=== PATIENT | male | born 1965 | race Hispanic/Latino ===

== ENCOUNTER 2024-08-11 20:08 | Inpatient (IN) | payer OTHER ==
--- OUTSIDE RECORDS SUMMARY | 2024-08-11 20:17 | XMS REPORT | Continuity of Care Document ---
Author Name Unknown Address [address] [facility] [place] [address] [facility] Address [address] [facility] [place] [address] Care Team Providers Care Product Marketing Engineer Name Role Phone MD EMY APPIAH Primary Care Physician [email or web address] TARAN COFFEY Attending Clinician Unavailable CARLA COURTNEY Attending Clinician Unavailable EMY APPIAH Attending Clinician Unavailable MCKENZIE STEPHENS Attending Clinician Unavailable Td_Jae Attending Clinician Unavailable LALI_Garrett Attending Clinician Unavailable LOVE Attending Clinician Unavailable Farrukh_levi Attending Clinician UnavailMOHAN Arthur Attending Clinician Unavailable PIPER WHITNEY Attending Clinician Unavailable GUIDO GRANDA Attending Clinician UnavailTARAN Thornton Admitting Clinician Unavailable MCKENZIE STEPHENS Admitting Clinician Unavailable Tomek_T Admitting Clinician Unavailable LALI_Garrett Admitting Clinician Unavailable LOVE Admitting Clinician Unavailable Shashi Admitting Clinician Unavailabl e Payers Payer Name Policy Type Policy Number Effective Date Expirati on Date Source [employer] [employer] ([facility]) [id number] [place] [facility] (O) [id number] 2020 00:00[facility]00 [facility] [id number] Problems Condition Name Condition Details Condition Category Status Onset Date Resolution Date Last Treatment Date Treating Clinician Comments Source Anxiety disorder Anxiety Disorder Problem Active 11-30 00:00: 00 [facility] Type 2 diabetes mellitus Type 2 Diabetes Mellitus Problem Active 11-23 00:00: 00 [facility] Tobacco user Tobacco User Problem Active 11-23 00:00: 00 [facility] Plaque psoriasis Plaque Psoriasis Problem Active 11-23 00:00: 00 [facility] Acute kidney [facility] Acute pyelonephr itis due to bacteria Problem [facility] Bacteremia Problem [facility] Dehydratio n Problem [facility] Elevated troponin level Problem [facility] Influenza due to influenza virus, type A, human Problem [facility] Pyelonephr itis Problem [facility] Calculus of right kidney Problem [facility] Urinary tract [facility] Uncontroll ed diabetes mellitus [facility] Uncontroll ed hypertensi on Problem [facility] Vomiting Problem [facility] Social History Social Habit Start Date Stop Date Quantity Comments Source History of tobacco use [facility] Smoking Status Start Date Stop Date Source Former Smoker [facility] Medications Ordered Medication Name Filled Medication Name Start Date Stop Date Current Medication? Ordering Clinician Indication Dosage Frequency Signature (SIG) Comments Components Source Amlodipine Besylate (Norvasc *) 5 Mg TAB Amlodipine Besylate (Norvasc *) 5 Mg TAB 8- 18:06: 00 07-18 00:00 :00 No 5 [facility] atorvastati n 40 mg tablet 1 tablet Orally Once a day atorvastati n 40 mg tablet 1 tablet Orally Once a day 2020-10 1 00:00: 00 No atorvastat in 40 mg tablet 1 tablet Orally Once a day [facility] Rybelsus 3 mg tablet Take 1 tablet every day by oral route for 30 days. give w/ <4 oz water, 30min before 1st food/drink/ med; do not cut/crush/c hew tab Rybelsus 3 mg tablet Take 1 tablet every day by oral route for 30 days. give w/ <4 oz water, 30min before 1st food/drink/ med; do not cut/crush/c hew tab 203 00:00: 00 No 1 Q1D Rybelsus 3 mg tablet Take 1 tablet every day by oral route for 30 days. give w/ <4 oz water, 30min before 1st food/drink /med; do not cut/crush/ chew tab [facility] buspirone 7.5 mg tablet Take 1 tablet twice a day by oral route for 30 days. buspirone 7.5 mg tablet Take 1 tablet twice a day by oral route for 30 days. No 1 BID buspirone 7.5 mg tablet Take 1 tablet twice a day by oral route for 30 days. [facility] clotrimazol e-betametha sone 1 %-0.05 % topical cream APPLY TO THE AFFECTED AND SURROUNDING AREAS OF SKIN BY TOPICAL ROUTE 2 TIMES PER DAY IN THE MORNING AND EVENING FOR 2 WEEKS clotrimazol e-betametha sone 1 %-0.05 % topical cream APPLY TO THE AFFECTED AND SURROUNDING AREAS OF SKIN BY TOPICAL ROUTE 2 TIMES PER DAY IN THE MORNING AND EVENING FOR 2 WEEKS No clotrimazo le-betamet hasone 1 %-0.05 % topical cream APPLY TO THE AFFECTED AND SURROUNDIN G AREAS OF SKIN BY TOPICAL ROUTE 2 TIMES PER DAY IN THE MORNING AND EVENING FOR 2 WEEKS [facility] ketoconazol e 2 % topical cream APPLY TO THE AFFECTED AREA(S) BY TOPICAL ROUTE ONCE DAILY ketoconazol e 2 % topical cream APPLY TO THE AFFECTED AREA(S) BY TOPICAL ROUTE ONCE DAILY No ketoconazo le 2 % topical cream APPLY TO THE AFFECTED AREA(S) BY TOPICAL ROUTE ONCE DAILY [facility] lisinopril 5 mg tablet Take 1 tablet every day by oral route for 30 days. lisinopril 5 mg tablet Take 1 tablet every day by oral route for 30 days. No lisinopril 5 mg tablet Take 1 tablet every day by oral route for 30 days. [facility] metformin 1,000 mg tablet Take 1 tablet twice a day by oral route for 30 days. metformin 1,000 mg tablet Take 1 tablet twice a day by oral route for 30 days. No metformin 1,000 mg tablet Take 1 tablet twice a day by oral route for 30 days. [facility] nicotine 14 mg/24 hr daily transdermal patch Apply 1 patch every day by transdermal route for 30 days. nicotine 14 mg/24 hr daily transdermal patch Apply 1 patch every day by transdermal route for 30 days. No nicotine 14 mg/24 hr daily transderma l patch Apply 1 patch every day by transderma l route for 30 days. [facility] Trulicity 0.75 mg/0.5 mL subcutaneou s pen injector Inject 0.5 mL every week by subcutaneou s route. inject every Saturday Trulicity 0.75 mg/0.5 mL subcutaneou s pen injector Inject 0.5 mL every week by subcutaneou s route. inject every Saturday No .5mL Q1W Trulicity 0.75 mg/0.5 mL subcutaneo us pen injector Inject 0.5 mL every week by subcutaneo us route. inject every Saturday [facility] carvedilol 25 mg tablet TAKE 1 TABLET BY MOUTH TWICE DAILY WITH MEALS FOR BLOOD PRESSURE carvedilol 25 mg tablet TAKE 1 TABLET BY MOUTH TWICE DAILY WITH MEALS FOR BLOOD PRESSURE No carvedilol 25 mg tablet TAKE 1 TABLET BY MOUTH TWICE DAILY WITH MEALS FOR BLOOD PRESSURE [facility] Debrox 6.5 % ear drops INSTILL 5 DROPS INTO AFFECTED EAR(S) BY OTIC ROUTE 2 TIMES PER DAY Debrox 6.5 % ear drops INSTILL 5 DROPS INTO AFFECTED EAR(S) BY OTIC ROUTE 2 TIMES PER DAY No Debrox 6.5 % ear drops INSTILL 5 DROPS INTO AFFECTED EAR(S) BY OTIC ROUTE 2 TIMES PER DAY [facility] losartan 25 mg tablet TAKE 1 TABLET BY MOUTH ONCE DAILY FOR BLOOD PRESSURE losartan 25 mg tablet TAKE 1 TABLET BY MOUTH ONCE DAILY FOR BLOOD PRESSURE No losartan 25 mg tablet TAKE 1 TABLET BY MOUTH ONCE DAILY FOR BLOOD PRESSURE [facility] metformin 500 mg tablet TAKE 2 TABLETS BY MOUTH ONCE DAILY metformin 500 mg tablet TAKE 2 TABLETS BY MOUTH ONCE DAILY No metformin 500 mg tablet TAKE 2 TABLETS BY MOUTH ONCE DAILY [facility] pantoprazol e 40 mg tablet,tomi yed release Take 1 tablet every day by oral route for 90 days. pantoprazol e 40 mg tablet,tomi yed release Take 1 tablet every day by oral route for 90 days. No 1 Q1D pantoprazo le 40 mg tablet,del ayed release Take 1 tablet every day by oral route for 90 days. [facility] Vital Signs Vital Name Observation Time Observation Value Comments S balajice Body Weight 2024-07-10 00:00:00 2979 [oz_av] [facility] Height 2024-07-10 00:00:00 65 [in_i] [facility] BP Systolic 2024-07-10 00:00:00 185 mm[Hg] [facility] BMI (Body Mass Index) 2024-07-10 00:00:00 31 kg/m2 [facility] BP Diastolic 2024-07-10 00:00:00 94 mm[Hg] [facility] Weight 2024-06-16 06:34:00 73.696266 kg [facility] BMI (Body Mass Index) 2024-06-16 06:34:00 24.8 kg/m2 [facility] Height 2024-06-12 18:30:00 172.248585 cm [facility] BP Diastolic 2020-11-30 00:00:00 85 mm[Hg] [facility] Height 2020-11-30 00:00:00 67 [in_i] [facility] BMI (Body Mass Index) 2020-11-30 00:00:00 28.3 kg/m2 [facility] BP Systolic 2020-11-30 00:00:00 131 mm[Hg] [facility] Body Weight 2020-11-30 00:00:00 2896 [oz_av] [facility] BP Diastolic 2020-11-23 00:00:00 90 mm[Hg] [facility] Height 2020-11-23 00:00:00 67 [in_i] [facility] BMI (Body Mass Index) 2020-11-23 00:00:00 28.8 kg/m2 [facility] BP Systolic 2020-11-23 00:00:00 157 mm[Hg] [facility] Body Weight 2020-11-23 00:00:00 2944 [oz_av] [facility] Procedures Procedure Date / Time Performed Performing Clinicia n Source ELECTROCARDIOGRAM, COMPLETE 2020-11-23 00:00:00 [facility] Plan of Care Planned Activity Planned Date Details Comments Source Instructions [facility] Encounters Start Date/Time End Date/Time Encounter Type Admission Type Attending Clinicians Care Facility Care Department Encounter ID Source 2024-08-06 15:41:00 Inpatient ER SIENAJENIFER ROXANEMECHELLE [facility] [id number] [facility] 2024-08-07 12:14:00 2024-08-11 18:47:00 Inpatient ER SIENAJENIFER ROXANEMECHELLE [facility] [id number] [facility] 2024-06-28 06:44:00 2024-07-27 23:59:00 Discharged Recurring [facility] [id number] [facility] 2024-07-02 06:30:00 2024-07-27 00:01:00 Outpatient CARLA CRUZ [facility] [id number] [facility] 2024-07-10 15:46:00 2024-07-10 15:46:00 Outpatient EMY ULLOA [facility] [id number] [facility] 2024-07-10 15:46:00 2024-07-10 15:46:00 Registered Clinic [facility] [id number] [facility] 2024-07-10 00:00:00 2024-07-10 00:00:00 Emy Appiah MD: [address] [place] [address], [address], [place] [address] , Ph. [facility] [address] [place] [address] 2024-07-01 06:30:00 2024-07-01 06:30:00 Outpatient CARLA CRUZ [facility] [id number] [facility] 2024-06-30 06:30:00 2024-06-30 06:30:00 Outpatient CARLA CRUZ [facility] [id number] [facility] 2024-06-29 06:30:00 2024-06-29 06:30:00 Outpatient CARLA CRUZ [facility] [id number] [facility] 2024-06-28 06:44:00 2024-06-28 06:44:00 Outpatient CARLA CRUZ [facility] [id number] [facility] 2024-06-18 18:00:00 2024-06-27 23:59:00 Discharged Recurring [facility] [id number] [facility] 2024-06-27 06:30:00 2024-06-27 00:01:00 Outpatient CARLA CRUZ [facility] [id number] [facility] 2024-06-26 06:30:00 2024-06-26 06:30:00 Outpatient CARLA CRUZ [facility] [id number] [facility] 2024-06-25 06:30:00 2024-06-25 06:30:00 Outpatient CARLA CRUZ [facility] [id number] [facility] 2024-06-24 06:30:00 2024-06-24 06:30:00 Outpatient CARLA CRUZ [facility] [id number] [facility] 2024-06-23 06:30:00 2024-06-23 06:30:00 Outpatient CARLA CRUZ [facility] [id number] [facility] 2024-06-22 06:30:00 2024-06-22 06:30:00 Outpatient CARLA CRUZ [facility] [id number] [facility] 2024-06-21 19:00:00 2024-06-21 19:00:00 Outpatient CARLA CRUZ [facility] [id number] [facility] 2024-06-20 19:00:00 2024-06-20 19:00:00 Outpatient CARLA CRUZ [facility] [id number] [facility] 2024-06-19 19:00:00 2024-06-19 19:00:00 Outpatient CARLA CRUZ [facility] [id number] [facility] 2024-06-18 18:00:00 2024-06-18 18:00:00 Outpatient CARLA CRUZ [facility] [id number] [facility] 2024-06-12 20:59:00 2024-06-17 19:37:00 Inpatient ER MCKENZIE STEPHENS [facility] [id number] [facility] 2024-06-12 20:59:00 2024-06-17 19:37:00 Discharged Inpatient [facility] [id number] [facility] 2023-10-29 00:00:00 2023-10-29 00:00:00 Outpatient Tomek_T MMG MMG [id number] [facility] 2023-10-24 00:00:00 2023-10-24 00:00:00 Outpatient Tomek_T MMG MMG [id number] [facility] 2023-10-23 00:00:00 2023-10-23 00:00:00 Outpatient HUTTON_L MMG MMG [id number] [facility] 2023-10-03 00:00:00 2023-10-03 00:00:00 Outpatient HUTTON_L MMG MMG [id number] [facility] 2023-02-20 00:00:00 2023-02-20 00:00:00 Outpatient AMBREEN_FAR HANA [facility] [id number] [facility] 2021-07-31 12:48:00 2021-07-31 12:48:00 Outpatient Obisesan_ad ekunbi [facility] [id number] [facility] 2021-06-26 12:36:00 2021-06-26 12:36:00 Outpatient Obisesan_ad ekunbi [facility] [id number] [facility] 2021-05-22 12:26:00 2021-05-22 12:26:00 Outpatient Obisesan_ad ekunbi [facility] [id number] [facility] 2021-04-27 07:41:00 2021-04-27 07:41:00 Outpatient Obisesan_ad ekunbi [facility] [id number] [facility] 2021-04-19 03:21:00 2021-04-19 03:21:00 Outpatient Obisesan_ad ekunbi [facility] [id number] [facility] 2021-03-04 01:02:00 2021-03-04 01:02:00 Outpatient Obisesan_ad ekunbi [facility] [id number] [facility] 2021-01-28 01:02:00 2021-01-28 01:02:00 Outpatient Obisesan_ad ekunbi [facility] [id number] [facility] 2020-12-24 01:02:00 2020-12-24 01:02:00 Outpatient Obisesan_ad ekunbi [facility] [id number] [facility] 2020-12-17 11:36:00 2020-12-17 11:36:00 Outpatient Obisesan_ad ekunbi [facility] [id number] [facility] 2020-11-30 05:42:00 2020-11-30 05:42:00 Outpatient Obisesan_ad ekunbi [facility] [id number] [facility] 2020-11-30 00:00:00 2020-11-30 00:00:00 Levi Chadwick, APPLIED PSYCHOLOGY CHAIR: [address], [place] [address] , Ph. [facility] [id number] [facility] 2020-11-23 06:17:00 2020-11-23 06:17:00 Outpatient Obisesan_ad ekunbi [facility] [id number] [facility] 2020-11-23 00:00:00 2020-11-23 00:00:00 Levi Chadwick, APPLIED PSYCHOLOGY CHAIR: [address] [place] [address] , Ph. [facility] [id number] [facility] 2020-11-22 12:15:00 2020-11-22 12:15:00 Outpatient Obisesan_ad ekunbi [facility] [id number] [facility] 2020-11-16 12:48:00 2020-11-16 12:48:00 Outpatient AMBREEN_FAR HANA [facility] [id number] [facility] 2020-03-23 10:23:00 2020-03-23 10:23:00 [place] [id number] [facility] 2018-05-28 06:51:00 2018-05-28 09:28:00 Emergency ER MOHAN MCELROY [facility] [id number] [facility] 2016-01-22 15:53:00 2016-01-22 17:48:00 Emergency ER PIPER WHITNEY [facility] [id number] [facility] 1999-01-23 15:58:00 1999-01-23 23:20:00 Emergency ER GUIDO GRANDA [facility] [id number] [facility] Results Test Description Test Time Test Comments Results Result Co mments Source [facility]trSerum or plasma thyroid stimulating hormone (TSH) [id number] 17:59:00* Test Item Value Reference Range Interpretation Comme nts Thyroid Stimulating Hormone (TSH) (test code = 3016-3) 1.85 [facility] CtrFree [id number] 17:59:00* Test Item Value Reference Range Interpretation Comme nts Free Thyroxine (test code = 4888219) 0.88 [facility] CtrSerum or plasma urea nitrogen measurement (mass/volume)2024-07-10 17:43:00* Test Item Value Reference Range Interpretation Comme nts Blood Urea Nitrogen (test co de = 3094-0) 21 [facility] [id number] 17:43:00* Test Item Value Reference Range Interpretation Comme nts Aspartate Amino Transf (AST/ SGOT) (test code = IWM3983) 18 [facility] CtrCreatinine [id number] 17:43:00* Test Item Value Reference Range Interpretation Comme nts Creatinine (test code = 335219098) 1.01 [facility] CtrEstimated glomerular filtration rate (GFR) [id number] 17:43:00* Test Item Value Reference Range Interpretation Comme [facility] Glomerular Filtration Rate C alc (test code = 012047089) > 60.00 [facility] CtrBUN/creatinine [id number] 17:43:00* Test Item Value Reference Range Interpretation Comme [facility] BUN/Creatinine Ratio (test c ode = 42832159) 20.8 [facility] CtrTriglycerides [id number] 17:43:00* Test Item Value Reference Range Interpretation Comme nts Triglycerides Level (test co de = UJD7515) 244 [facility] CtrBody fluid potassium [id number] 17:43:00* Test Item Value Reference Range Interpretation Comme nts Potassium Level (test code = 2821-7) 4.1 [facility] [id number] 17:43:00* Test Item Value Reference Range Interpretation Comme nts Carbon Dioxide Level (test c ode = 01095985) 25 [facility] CtrAnion gap [id number] 17:43:00* Test Item Value Reference Range Interpretation Comme nts Anion Gap (test code = 73618302) 16.1 [facility] CtrCalcium [id number] 17:43:00* Test Item Value Reference Range Interpretation Comme nts Calcium Level (test code = 11993066) 9.2 [facility] CtrGlobulin [id number] 17:43:00* Test Item Value Reference Range Interpretation Comme nts Globulin (test code = 100719178) 4.6 [facility] CtrALT (SGPT) ser/[id number] 17:43:00* Test Item Value Reference Range Interpretation Comme nts Alanine Aminotransferase (AL T/SGPT) (test code = 1742-6) 17 [facility] CtrALP ser/[id number] 17:43:00* Test Item Value Reference Range Interpretation Comme nts Total Alkaline Phosphatase ( test code = 6768-6) 78 [facility] [id number] 17:43:00* Test Item Value Reference Range Interpretation Comme nts HDL Cholesterol (test code = 28288726) 34 [facility] CtrLDL cholesterol, [id number] 17:43:00* Test Item Value Reference Range Interpretation Comme nts LDL Cholesterol (test code = 244050251) 107 [facility] CtrCholesterol/HDL [id number] 17:43:00* Test Item Value Reference Range Interpretation Comme [facility] Coronary Heart Disease Risk Ratio (test code = 829083013) 5.058 [facility] CtrHemoglobin [id number] 17:37:00* Test Item Value Reference Range Interpretation Comme nts Hemoglobin A1c (test code = 15075-6) 9.6 [facility] CtrAbsolute eosinophil [id number] 17:17:00* Test Item Value Reference Range Interpretation Comme [facility] Eosinophils # (Auto) (test c ode = MYN7391) 0.44 [facility] CtrRBC [id number] 17:17:00* Test Item Value Reference Range Interpretation Comme nts Red Blood Count (test code = 92543589) 3.35 [facility] WsbNdynrfjpwa7628-72-01 17:17:00* Test Item Value Reference Range Interpretation Comme nts Hematocrit (test code = 15294073) 31.1 [facility] CtrMCV (mean corpuscular volume) determination 2024-07-10 17:17:00* Test Item Value Reference Range Interpretation Comme [facility] Mean Corpuscular Volume (lisa t code = 34218-1) 92.8 [facility] CtrMean corpuscular hemoglobin (MCH) determination 2024-07-10 17:17:00* Test Item Value Reference Range Interpretation Comme [facility] Mean Corpuscular Hemoglobin (test code = 05819938) 29.9 [facility] CtrMean corpuscular hemoglobin concentration (MCHC) [id number] 17:17:00* Test Item Value Reference Range Interpretation Comme [facility] Mean Corpuscular Hemoglobin Concent (test code = 05459331) 32.2 [facility] CtrRBC distribution width coefficient of variation 2024-07-10 17:17:00* Test Item Value Reference Range Interpretation Comme [facility] Red Cell Distribution Width (test code = 88816851) 12.9 [facility] CtrPlatelet [id number] 17:17:00* Test Item Value Reference Range Interpretation Comme [facility] Platelet Count (test code = 19529542) 180 [facility] CtrMean platelet [id number] 17:17:00* Test Item Value Reference Range Interpretation Comme [facility] Mean Platelet Volume (test c ode = 55811233) 10.9 [facility] CtrNeutrophils seg % [id number] 17:17:00* Test Item Value Reference Range Interpretation Comme [facility] Neutrophils (%) (Auto) (test code = 71103-6) 69.8 [facility] [facility] [place] [facility]trAbsolute immature granulocyte sezcu7766-62-80 17:17:00* Test Item Value Reference Range Interpretation Comme [facility] Absolute Immature Granulocyt e (auto (test code = 79303-7) 0.02 [facility] CtrBlood band neutrophils count (number/volume) 2024-07-10 17:17:00* Test Item Value Reference Range Interpretation Comme [facility] Neutrophils # (Auto) (test c ode = 82864-1) 5.19 [facility]trAbsolute lymphocyte [id number] 17:17:00* Test Item Value Reference Range Interpretation Comme nts Lymphocytes # (Auto) (test c ode = 96509-2) 1.07 [facility]trAbsolute basophil paiyl3543-44-30 17:17:00* Test Item Value Reference Range Interpretation Comme nts Basophils # (Auto) (test cod e = 29372532) 0.02 [facility] CtrAbsolute NRBC [id number] 17:17:00* Test Item Value Reference Range Interpretation Comme nts Nucleated Red Blood Cells # (test code = 049240347) 0 [facility] CtrBeta-hydroxybutyric acid fwzxwmjkezl5041-24-26 00:07:00* Test Item Value Reference Range Interpretation Comme nts B-Hydroxybutyrate (test code = 09330-8) 3.3 [facility] CtrBeta-hydroxybutyric acid jghikjalnah2075-43-62 00:07:00* Test Item Value Reference Range Interpretation Comme nts B-Hydroxybutyrate (test code = 64779-4) 3.3 [facility] CtrMonitoring of blood dapcust7010-40-00 16:22:00* Test Item Value Reference Range Interpretation Comme [facility] POC Capillary Blood Glucose (Chem) (test code = 036797496) 122 [facility] [place] CtrMonitoring of blood aulwimp2184-42-79 16:22:00* Test Item Value Reference Range Interpretation Comme [facility] POC Capillary Blood Glucose (Chem) (test code = 328730178) 122 [facility] CtrMonitoring of blood bavabyj0764-55-13 16:22:00* Test Item Value Reference Range Interpretation Comme [facility] POC Capillary Blood Glucose (Chem) (test code = 393407551) 122 [facility] [place] CtrSerum or plasma glucose measurement (mass/volume) 2024-06-17 04:31:00* Test Item Value Reference Range Interpretation Comme nts Random Glucose (test code = 2345-7) 127 [facility] [place] CtrSerum or plasma urea nitrogen measurement (mass/volume)2024-06-17 04:31:00* Test Item Value Reference Range Interpretation Comme nts Blood Urea Nitrogen (test co de = 3094-0) 25 [facility] [place] CtrOsmolality [id number] 04:31:00* Test Item Value Reference Range Interpretation Comme nts Serum Osmolality (test code = OEB9620) 287 [facility] [place] CtrChloride fbmrvuuwuvj6314-22-75 04:31:00* Test Item Value Reference Range Interpretation Comme nts Chloride Level (test code = MRF5394) 106 [facility] [place] CtrEstimated glomerular filtration rate (GFR) qhpslpkvhytbw8039-16-77 04:31:00* Test Item Value Reference Range Interpretation Comme [facility] Glomerular Filtration Rate C alc (test code = 065354628) > 60.00 [facility] CtrBUN/creatinine zatnv0557-45-34 04:31:00* Test Item Value Reference Range Interpretation Comme nts BUN/Creatinine Ratio (test c ode = 09217994) 21.7 [facility] [id number] 04:31:00* Test Item Value Reference Range Interpretation Comme nts Carbon Dioxide Level (test c ode = 44527936) 24 [facility] [place] CtrAnion gap fvqujslflqe3028-59-17 04:31:00* Test Item Value Reference Range Interpretation Comme nts Anion Gap (test code = 86220691) 15.7 [facility] [place] CtrCalcium [id number] 04:31:00* Test Item Value Reference Range Interpretation Comme nts Calcium Level (test code = 81187724) 9.1 [facility] [place] CtrSerum or plasma glucose measurement (mass/volume) 2024-06-17 04:31:00* Test Item Value Reference Range Interpretation Comme nts Random Glucose (test code = 2345-7) 127 [facility] [place] CtrSerum or plasma urea nitrogen measurement (mass/volume)2024-06-17 04:31:00* Test Item Value Reference Range Interpretation Comme nts Blood Urea Nitrogen (test co de = 3094-0) 25 [facility] [place] CtrOsmolality rqi2052-94-08 04:31:00* Test Item Value Reference Range Interpretation Comme nts Serum Osmolality (test code = KFE8017) 287 [facility] [place] CtrChloride nquawlqkern6896-53-73 04:31:00* Test Item Value Reference Range Interpretation Comme nts Chloride Level (test code = JNM7788) 106 [facility] [place] CtrEstimated glomerular filtration rate (GFR) wbcwhupjeceno7373-44-90 04:31:00* Test Item Value Reference Range Interpretation Comme [facility] Glomerular Filtration Rate C alc (test code = 022439260) > 60.00 [facility] CtrBUN/creatinine pkhwg4812-41-02 04:31:00* Test Item Value Reference Range Interpretation Comme nts BUN/Creatinine Ratio (test c ode = 45360866) 21.7 [facility] LiuVK06067-11-54 04:31:00* Test Item Value Reference Range Interpretation Comme nts Carbon Dioxide Level (test c ode = 33710947) 24 [facility] [place] CtrAnion gap dpxdsuunzfo2108-97-67 04:31:00* Test Item Value Reference Range Interpretation Comme [facility] Anion Gap (test code = 67174695) 15.7 [facility] [place] CtrCalcium jollm2306-30-87 04:31:00* Test Item Value Reference Range Interpretation Comme nts Calcium Level (test code = 10460845) 9.1 [facility] [place] CtrAbsolute eosinophil ahhjh4470-74-86 04:16:00* Test Item Value Reference Range Interpretation Comme nts Eosinophils # (Auto) (test c ode = HZX8089) 0.35 [facility] CtrRBC esabl1223-64-26 04:16:00* Test Item Value Reference Range Interpretation Comme nts Red Blood Count (test code = 06097262) 3.11 [facility] XavQbdogkitwc3891-64-21 04:16:00* Test Item Value Reference Range Interpretation Comme nts Hematocrit (test code = 30536948) 29.1 [facility] [place] CtrMCV (mean corpuscular volume) determination 2024-06-17 04:16:00* Test Item Value Reference Range Interpretation Comme [facility] Mean Corpuscular Volume (lisa t code = 53693-2) 93.6 [facility] CtrMean corpuscular hemoglobin (MCH) determination 2024-06-17 04:16:00* Test Item Value Reference Range Interpretation Comme nts Mean Corpuscular Hemoglobin (test code = 17984480) 30.2 [facility] hemoglobin concentration (MCHC) moyiqvtpziprm8148-12-94 04:16:00* Test Item Value Reference Range Interpretation Comme [facility] Mean Corpuscular Hemoglobin Concent (test code = 29994836) 32.3 [facility] [place] CtrErythrocyte distribution width coefficient of yaqvzfjdj2449-93-09 04:16:00* Test Item Value Reference Range Interpretation Comme [facility] Red Cell Distribution Width (test code = 93038436) 12.0 [facility] [place] CtrPlatelet uckcn3861-42-61 04:16:00* Test Item Value Reference Range Interpretation Comme [facility] Platelet Count (test code = 66661777) 331 [facility] HospitalMean platelet ffcyyt9851-60-40 04:16:00* Test Item Value Reference Range Interpretation Comme [facility] Mean Platelet Volume (test c ode = 51149953) 9.7 [facility] [place] CtrNeutrophils seg % [id number] 04:16:00* Test Item Value Reference Range Interpretation Comme [facility] Neutrophils (%) (Auto) (test code = 33598-1) 74.2 [facility]Absolute immature granulocyte obntb1991-67-22 04:16:00* Test Item Value Reference Range Interpretation Comme [facility] Absolute Immature Granulocyt e (auto (test code = 45327-9) 0.03 [facility] HospitalBlood band neutrophils count (number/volume) 2024-06-17 04:16:00* Test Item Value Reference Range Interpretation Comme [facility] Neutrophils # (Auto) (test c ode = 45930-3) 5.61 [facility] [place] CtrAbsolute lymphocyte maasd9541-83-35 04:16:00* Test Item Value Reference Range Interpretation Comme [facility] Lymphocytes # (Auto) (test c ode = 61025-8) 1.01 [facility] [place] CtrAbsolute basophil etrdv1159-89-97 04:16:00* Test Item Value Reference Range Interpretation Comme [facility] Basophils # (Auto) (test cod e = 89582688) 0.04 [facility] NRBC qpxsc5770-26-65 04:16:00* Test Item Value Reference Range Interpretation Comme [facility] Nucleated Red Blood Cells # (test code = 126700165) 0 [facility] [place] CtrAbsolute eosinophil kvkzk3633-38-83 04:16:00* Test Item Value Reference Range Interpretation Comme [facility] Eosinophils # (Auto) (test c ode = HNA0502) 0.35 [facility] CtrRBC skjkz3306-33-80 04:16:00* Test Item Value Reference Range Interpretation Comme [facility] Red Blood Count (test code = 91641438) 3.11 [facility] SsnSxurdmaflj3097-03-62 04:16:00* Test Item Value Reference Range Interpretation Comme [facility] Hematocrit (test code = 11814970) 29.1 [facility] [place] CtrMCV (mean corpuscular volume) determination 2024-06-17 04:16:00* Test Item Value Reference Range Interpretation Comme [facility] Mean Corpuscular Volume (lisa t code = 19663-2) 93.6 [facility] [place] CtrMean corpuscular hemoglobin (MCH) determination 2024-06-17 04:16:00* Test Item Value Reference Range Interpretation Comme [facility] Mean Corpuscular Hemoglobin (test code = 60235916) 30.2 [facility] HospitalMean corpuscular hemoglobin concentration (MCHC) fiydzkihqfrtd9346-31-89 04:16:00* Test Item Value Reference Range Interpretation Comme [facility] Mean Corpuscular Hemoglobin Concent (test code = 65496623) 32.3 [facility] CtrErythrocyte distribution width coefficient of reintpdaf4686-61-85 04:16:00* Test Item Value Reference Range Interpretation Comme [facility] Red Cell Distribution Width (test code = 16658499) 12.0 [facility] [place] CtrPlatelet mnrlm2892-00-25 04:16:00* Test Item Value Reference Range Interpretation Comme [facility] Platelet Count (test code = 97591216) 331 [facility] [place] CtrMean platelet zeizci3766-99-96 04:16:00* Test Item Value Reference Range Interpretation Comme [facility] Mean Platelet Volume (test c ode = 25011107) 9.7 [facility] CtrNeutrophils seg % rod9960-30-60 04:16:00* Test Item Value Reference Range Interpretation Comme nts Neutrophils (%) (Auto) (test code = 42119-7) 74.2 [facility] [place] CtrAbsolute immature granulocyte jufeg5955-77-63 04:16:00* Test Item Value Reference Range Interpretation Comme nts Absolute Immature Granulocyt e (auto (test code = 59511-9) 0.03 [facility] [place] CtrBlood band neutrophils count (number/volume) 2024-06-17 04:16:00* Test Item Value Reference Range Interpretation Comme nts Neutrophils # (Auto) (test c ode = 85883-4) 5.61 [facility] [place] CtrAbsolute lymphocyte tseta6946-07-04 04:16:00* Test Item Value Reference Range Interpretation Comme nts Lymphocytes # (Auto) (test c ode = 43035-0) 1.01 [facility]Absolute basophil nhpuv5923-64-64 04:16:00* Test Item Value Reference Range Interpretation Comme nts Basophils # (Auto) (test cod e = 20013487) 0.04 [facility] [place] CtrAbsolute NRBC ryhfs8365-59-64 04:16:00* Test Item Value Reference Range Interpretation Comme nts Nucleated Red Blood Cells # (test code = 069712974) 0 [facility] [place] CtrBlood wipcaur3213-07-95 08:35:00* Test Item Value Reference Range Interpretation Comme nts Blood Culture (test code = 46664373) STAPHYLOCOCCUS AUREUS [facility] [place] CtrBlood nmdzqts2696-58-77 08:35:00* Test Item Value Reference Range Interpretation Comme nts Blood Culture (test code = 03546797) STAPHYLOCOCCUS AUREUS [facility] [place] CtrBlood polgdsw2933-44-57 08:35:00* Test Item Value Reference Range Interpretation Comme nts Blood Culture (test code = 92815797) STAPHYLOCOCCUS AUREUS [facility] CtrSerum or plasma vancomycin level (mass/volume) 2024-06-16 04:31:00* Test Item Value Reference Range Interpretation Comme nts Random Vancomycin Level (lisa t code = 60623-9) 16.2 [facility] CtrSerum or plasma vancomycin level (mass/volume) 2024-06-16 04:31:00* Test Item Value Reference Range Interpretation Comme nts Random Vancomycin Level (lisa t code = 03484-3) 16.2 [facility] CtrSerum or plasma vancomycin level (mass/volume) 2024-06-16 04:31:00* Test Item Value Reference Range Interpretation Comme nts Random Vancomycin Level (lisa t code = 13592-6) 16.2 [facility] CtrUrine okktxmx9845-90-67 08:53:00* Test Item Value Reference Range Interpretation Comme nts Urine Culture (test code = 630-4) STAPHYLOCOCCUS AUREUS [facility] HospitalUrine vjwxkoe1136-95-93 08:53:00* Test Item Value Reference Range Interpretation Comme nts Urine Culture (test code = 630-4) STAPHYLOCOCCUS AUREUS [facility] HospitalUrine qtawsen5303-59-40 08:53:00* Test Item Value Reference Range Interpretation Comme nts Urine Culture (test code = 630-4) STAPHYLOCOCCUS AUREUS [facility] [place] CtrSerum or plasma thyroid stimulating hormone (TSH) kosekqnljyo2507-96-05 10:26:00* Test Item Value Reference Range Interpretation Comme nts Thyroid Stimulating Hormone (TSH) (test code = 3016-3) 1.91 [facility] HospitalFree E22006-92-16 10:26:00* Test Item Value Reference Range Interpretation Comme nts Free Thyroxine (test code = 3033254) 1.19 [facility] CtrSerum or plasma thyroid stimulating hormone (TSH) ocrrmqvqojk1512-67-18 10:26:00* Test Item Value Reference Range Interpretation Comme nts Thyroid Stimulating Hormone (TSH) (test code = 3016-3) 1.91 [facility]Free K01373-60-24 10:26:00* Test Item Value Reference Range Interpretation Comme nts Free Thyroxine (test code = 1021453) 1.19 [facility] CtrHemoglobin F9l5626-52-69 06:42:00* Test Item Value Reference Range Interpretation Comme nts Hemoglobin A1c (test code = 29076-0) 11.1 [facility] CtrHemoglobin [id number] 06:42:00* Test Item Value Reference Range Interpretation Comme nts Hemoglobin A1c (test code = 94866-4) 11.1 [facility] CtrSerum or plasma cardiac troponin I panel by high sensitivity ljflls0103-93-84 06:11:00* Test Item Value Reference Range Interpretation Comme nts Troponin T High Sensitivity (test code = 94441-6) 30.0 [facility] CtrSerum or plasma cardiac troponin I panel by high sensitivity baqbpe6578-17-94 06:11:00* Test Item Value Reference Range Interpretation Comme nts Troponin T High Sensitivity (test code = 54147-5) 30.0 [facility] CtrSerum or plasma cardiac troponin I panel by high sensitivity kwzees4731-88-94 06:11:00* Test Item Value Reference Range Interpretation Comme nts Troponin T High Sensitivity (test code = 26935-1) 30.0 [facility] CtrColor of Urine by Kxht7187-61-75 01:18:00* Test Item Value Reference Range Interpretation Comme nts Urine Color (test code = 91241-3) Yellow [facility] CtrAppearance of Zkmzr1573-73-70 01:18:00* Test Item Value Reference Range Interpretation Comme nts Urine Appearance (test code = 5767-9) Clear [facility] HospitalUrine glucose vmegodpin6678-42-54 01:18:00* Test Item Value Reference Range Interpretation Comme [facility] Urine Glucose (UA) (test code = 2349-9) 3+ (200-600 mg/dL) [facility] CtrBilirubin qh9347-27-49 01:18:00* Test Item Value Reference Range Interpretation Comme nts Urine Bilirubin (test code = 173352138) Negative [facility] CtrKetones dt3449-94-13 01:18:00* Test Item Value Reference Range Interpretation Comme nts Urine Ketones (test code = 57079594) Negative [facility] HospitalSpecific gravity of Urine by Automated test strip 2024-06-13 01:18:00* Test Item Value Reference Range Interpretation Comme nts Urine Specific [place] (test code = 00352-5) 1.016 [facility] HospitalUrine blood bkjafkbsx6009-92-53 01:18:00* Test Item Value Reference Range Interpretation Comme nts Urine Blood (test code = 94795-4) 3+ (LARGE) [facility] CtrpH dg8650-48-13 01:18:00* Test Item Value Reference Range Interpretation Comme nts Urine pH (test code = 2756-5) 5.500 [facility] [place] CtrProtein pp8398-77-16 01:18:00* Test Item Value Reference Range Interpretation Comme nts Urine Protein (test code = 02689899) 3+ [facility] [place] CtrUrobilinogen, urine, yt7016-74-11 01:18:00* Test Item Value Reference Range Interpretation Comme nts Urine Urobilinogen (test cod e = 115968974) 1.0 [facility] [place] CtrUrine nitrate ykdvowxuy4518-64-74 01:18:00* Test Item Value Reference Range Interpretation Comme nts Urine Nitrate (test code = 59825-7) Negative [facility] [place] CtrUrine leukocyte esterase wexwqwfau6653-93-80 01:18:00* Test Item Value Reference Range Interpretation Comme nts Urine Leukocyte Esterase (te st code = 597783353) 1+ [facility] CtrRBC count ur lfhw9148-15-53 01:18:00* Test Item Value Reference Range Interpretation Comme nts Urine RBC (test code = 798-9) 6-10 [facility] [place] CtrUrine examination for white blood cells (WBC) 2024-06-13 01:18:00* Test Item Value Reference Range Interpretation Comme nts Urine WBC (test code = 620861995) 21-50 [facility] [place] CtrAutomated epithelial cells count in urine sediment (number/area)2024-06-13 01:18:00* Test Item Value Reference Range Interpretation Comme nts Urine Epithelial Cells (test code = 06517-7) 3-5 [facility] CtrBacteria detection in urine sediment by light jbhfmrxpwd4104-44-73 01:18:00* Test Item Value Reference Range Interpretation Comme nts Urine Bacteria (test code = 02114-6) None Seen [facility] CtrUrine casts detection by automated method 2024-06-13 01:18:00* Test Item Value Reference Range Interpretation Comme nts Urine Casts (test code = 67073-8) 6-10 [facility] [place] CtrColor of Urine by Thrf3086-56-99 01:18:00* Test Item Value Reference Range Interpretation Comme nts Urine Color (test code = 77670-7) Yellow [facility] CtrAppearance of Pavsd3683-66-58 01:18:00* Test Item Value Reference Range Interpretation Comme nts Urine Appearance (test code = 5767-9) Clear [facility] CtrUrine glucose wzatemncf6832-36-23 01:18:00* Test Item Value Reference Range Interpretation Comme [facility] Urine Glucose (UA) (test code = 2349-9) 3+ (200-600 mg/dL) [facility] CtrBilirubin hz1543-10-03 01:18:00* Test Item Value Reference Range Interpretation Comme [facility] Urine Bilirubin (test code = 592439930) Negative [facility] CtrKetones mf1336-61-19 01:18:00* Test Item Value Reference Range Interpretation Comme [facility] Urine Ketones (test code = 37124781) Negative [facility] CtrSpecific gravity of Urine by Automated test strip 2024-06-13 01:18:00* Test Item Value Reference Range Interpretation Comme nts Urine Specific [place] (test code = 64552-2) 1.016 [facility] HospitalUrine blood wfjwvijlg7578-63-68 01:18:00* Test Item Value Reference Range Interpretation Comme [facility] Urine Blood (test code = 47892-9) 3+ (LARGE) [facility] [place] CtrpH kx9441-50-01 01:18:00* Test Item Value Reference Range Interpretation Comme [facility] Urine pH (test code = 2756-5) 5.500 [facility] [place] CtrProtein xj2386-02-95 01:18:00* Test Item Value Reference Range Interpretation Comme [facility] Urine Protein (test code = 28124884) 3+ [facility] [place] CtrUrobilinogen, urine, wn5306-43-17 01:18:00* Test Item Value Reference Range Interpretation Comme [facility] Urine Urobilinogen (test cod e = 393975252) 1.0 [facility] HospitalUrine nitrate yjgjphvkq5714-89-06 01:18:00* Test Item Value Reference Range Interpretation Comme nts Urine Nitrate (test code = 35096-7) Negative [facility] CtrUrine leukocyte esterase fupgmyxuy6247-18-50 01:18:00* Test Item Value Reference Range Interpretation Comme nts Urine Leukocyte Esterase (te st code = 088154149) 1+ [facility] CtrRBC count ur lsin4449-89-87 01:18:00* Test Item Value Reference Range Interpretation Comme nts Urine RBC (test code = 798-9) 6-10 [facility] HospitalUrine examination for white blood cells (WBC) 2024-06-13 01:18:00* Test Item Value Reference Range Interpretation Comme nts Urine WBC (test code = 581088182) 21-50 [facility] [place] CtrAutomated epithelial cells count in urine sediment (number/area)2024-06-13 01:18:00* Test Item Value Reference Range Interpretation Comme nts Urine Epithelial Cells (test code = 62918-7) 3-5 [facility] CtrBacteria detection in urine sediment by light cjpltkhxwd2976-31-07 01:18:00* Test Item Value Reference Range Interpretation Comme nts Urine Bacteria (test code = 40456-1) None [facility]en [facility] HospitalUrine casts detection by automated method 2024-06-13 01:18:00* Test Item Value Reference Range Interpretation Comme nts Urine Casts (test code = 94013-9) 6-10 [facility] [place] CtrColor of Urine by Uflk8093-79-81 01:18:00* Test Item Value Reference Range Interpretation Comme nts Urine Color (test code = 02947-3) Yellow [facility] CtrAppearance of Nbpwm8409-06-48 01:18:00* Test Item Value Reference Range Interpretation Comme nts Urine Appearance (test code = 5767-9) Clear [facility] HospitalU[facility] glucose lyvjqbjop7066-43-77 01:18:00* Test Item Value Reference Range Interpretation Comme nts Urine Glucose (UA) (test code = 2349-9) 3+ (200-600 mg/dL) [facility] CtrBilirubin oa8211-04-68 01:18:00* Test Item Value Reference Range Interpretation Comme nts Urine Bilirubin (test code = 113961878) Negative [facility] CtrKetones qa5778-28-34 01:18:00* Test Item Value Reference Range Interpretation Comme nts Urine Ketones (test code = 36552674) Negative [facility] CtrSpecific gravity of Urine by Automated test strip 2024-06-13 01:18:00* Test Item Value Reference Range Interpretation Comme nts Urine Specific [place] (test code = 37445-5) 1.016 [facility] CtrUrine blood pbepixkzu9731-90-77 01:18:00* Test Item Value Reference Range Interpretation Comme nts Urine Blood (test code = 82066-8) 3+ (LARGE) [facility] CtrpH [id number] 01:18:00* Test Item Value Reference Range Interpretation Comme [facility] Urine pH (test code = 2756-5) 5.500 [facility] CtrProtein [id number] 01:18:00* Test Item Value Reference Range Interpretation Comme nts Urine Protein (test code = 47317011) 3+ [facility] CtrUrobilinogen, urine, [id number] 01:18:00* Test Item Value Reference Range Interpretation Comme nts Urine Urobilinogen (test cod e = 141992483) 1.0 [facility] CtrUrine nitrate xrmpteyrv7538-98-37 01:18:00* Test Item Value Reference Range Interpretation Comme nts Urine Nitrate (test code = 96403-3) Negative [facility] ester[facility] epyhxkfui4478-70-44 01:18:00* Test Item Value Reference Range Interpretation Comme nts Urine Leukocyte Esterase (te st code = 079945709) 1+ [facility] CtrRBC count ur nuua8871-99-43 01:18:00* Test Item Value Reference Range Interpretation Comme nts Urine RBC (test code = 798-9) 6-10 [facility] for white blood cells (WBC) 2024-06-13 01:18:00* Test Item Value Reference Range Interpretation Comme nts Urine WBC (test code = 842140957) 21-50 [facility] CtrAutomated epithelial cells count in urine sediment (number/area)2024-06-13 01:18:00* Test Item Value Reference Range Interpretation Comme nts Urine Epithelial Cells (test code = 23487-1) 3-5 [facility] CtrBacteria detection in urine sediment by light mynxyywprd4230-20-30 01:18:00* Test Item Value Reference Range Interpretation Comme nts Urine Bacteria (test code = 95058-0) None Seen [facility] CtrUrine casts detection by automated method 2024-06-13 01:18:00* Test Item Value Reference Range Interpretation Comme nts Urine Casts (test code = 32194-5) 6-10 [facility] CtrUrine fentanyl measurement by confirmatory method (mass/volume)2024-06-13 01:14:00* Test Item Value Reference Range Interpretation Comme nts Urine Fentanyl Screen (test code = 55483-6) NEGATIVE [facility] CtrPhencyclidine (PCP) [id number] 01:14:00* Test Item Value Reference Range Interpretation Comme nts Urine Phencyclidine (PCP) Le epifanio (test code = 462229845) NEGATIVE [facility] CtrPropoxyphene [Mass/volume] in Ybygf7898-54-94 01:14:00* Test Item Value Reference Range Interpretation Comme nts Propoxyphene Level (test cod e = 3545-1) NEGATIVE [facility] CtroxyCODONE [Mass/volume] in Swfft5515-98-65 01:14:00* Test Item Value Reference Range Interpretation Comme nts Oxycodone Level (test code = 35986-1) NEGATIVE [facility] CtrAmphetamine ur bqezdj0828-91-96 01:14:00* Test Item Value Reference Range Interpretation Comme nts Urine Amphetamines Screen (t est code = 85566-3) NEGATIVE [facility] JfoHjgpovnnw8662-64-92 01:14:00* Test Item Value Reference Range Interpretation Comme nts Methadone Level (test code = OQU6097) NEGATIVE [facility] CtrBenzodiazepines screen [id number] 01:14:00* Test Item Value Reference Range Interpretation Comme nts Urine Benzodiazepines Screen (test code = 861105051) NEGATIVE [facility] CtrCannabinoids (1-fijrncn-DBU) rzwjfztthqh2643-71-88 01:14:00* Test Item Value Reference Range Interpretation Comme nts Urine Cannabinoids (test cod e = 237362453) NEGATIVE [facility] CtrCocaine metabolite bzlcnj2387-44-32 01:14:00* Test Item Value Reference Range Interpretation Comme nts Urine Cocaine Metabolite (te st code = 670020879) NEGATIVE [facility] CtrOpiates alufp3355-53-39 01:14:00* Test Item Value Reference Range Interpretation Comme nts Urine Opiates Screen (test c ode = 572938882) NEGATIVE [facility] CtrUrine hydrocodone measurement (mass/volume) 2024-06-13 01:14:00* Test Item Value Reference Range Interpretation Comme nts Hydrocodone Level (test code = 3681-4) NEGATIVE [facility] Hospital[facility] fentanyl measurement by confirmatory method (mass/volume)2024-06-13 01:14:00* Test Item Value Reference Range Interpretation Comme nts Urine Fentanyl Screen (test code = 91579-3) NEGATIVE [facility] CtrPhencyclidine (PCP) uq4678-22-63 01:14:00* Test Item Value Reference Range Interpretation Comme nts Urine Phencyclidine (PCP) Le epifanio (test code = 249862108) NEGATIVE [facility] CtrPropoxyphene [Mass/volume] in Nmuww9875-01-28 01:14:00* Test Item Value Reference Range Interpretation Comme nts Propoxyphene Level (test cod e = 3545-1) NEGATIVE [facility] CtroxyCODONE [Mass/volume] in Doqzw7610-65-52 01:14:00* Test Item Value Reference Range Interpretation Comme nts Oxycodone Level (test code = 04789-3) NEGATIVE [facility] CtrAmphetamine ur rvqejz5911-45-35 01:14:00* Test Item Value Reference Range Interpretation Comme nts Urine Amphetamines Screen (t est code = 01159-5) NEGATIVE [facility] QmmPdvvoysys8359-22-14 01:14:00* Test Item Value Reference Range Interpretation Comme nts Methadone Level (test code = LBQ4062) NEGATIVE [facility] CtrBenzodiazepines screen [id number] 01:14:00* Test Item Value Reference Range Interpretation Comme nts Urine Benzodiazepines Screen (test code = 103853407) NEGATIVE [facility] CtrCannabinoids (6-xnbsvmb-KIA) yunjzzqakks3229-77-79 01:14:00* Test Item Value Reference Range Interpretation Comme nts Urine Cannabinoids (test cod e = 449785468) NEGATIVE [facility] CtrCocaine metabolite qnyhnb1322-10-47 01:14:00* Test Item Value Reference Range Interpretation Comme [facility] Urine Cocaine Metabolite (te st code = 197608987) NEGATIVE [facility] CtrOpiates tlymm0469-87-39 01:14:00* Test Item Value Reference Range Interpretation Comme [facility] Urine Opiates Screen (test c ode = 717399599) NEGATIVE [facility] CtrUrine hydrocodone measurement (mass/volume) 2024-06-13 01:14:00* Test Item Value Reference Range Interpretation Comme nts Hydrocodone Level (test code = 3681-4) NEGATIVE [facility] CtrUrine fentanyl measurement by confirmatory method (mass/volume)2024-06-13 01:14:00* Test Item Value Reference Range Interpretation Comme [facility] Urine Fentanyl Screen (test code = 22536-7) NEGATIVE [facility] CtrPhencyclidine (PCP) [id number] 01:14:00* Test Item Value Reference Range Interpretation Comme [facility] Urine Phencyclidine (PCP) Le epifanio (test code = 736788128) NEGATIVE [facility] CtrPropoxyphene [Mass/volume] in Cavrz4427-28-79 01:14:00* Test Item Value Reference Range Interpretation Comme nts Propoxyphene Level (test cod e = 3545-1) NEGATIVE [facility] CtroxyCODONE [Mass/volume] in Gdrus5702-61-49 01:14:00* Test Item Value Reference Range Interpretation Comme nts Oxycodone Level (test code = 94701-5) NEGATIVE [facility] CtrAmphetamine ur pselbr8748-09-54 01:14:00* Test Item Value Reference Range Interpretation Comme nts Urine Amphetamines Screen (t est code = 69169-7) NEGATIVE [facility] RlsJxqgnajey4264-34-50 01:14:00* Test Item Value Reference Range Interpretation Comme nts Methadone Level (test code = XGS2533) NEGATIVE [facility] CtrBenzodiazepines screen [id number] 01:14:00* Test Item Value Reference Range Interpretation Comme nts Urine Benzodiazepines Screen (test code = 827354092) NEGATIVE [facility] CtrCannabinoids (3-lhrxspr-APY) myugtgspwqa9465-15-08 01:14:00* Test Item Value Reference Range Interpretation Comme nts Urine Cannabinoids (test cod e = 916599317) NEGATIVE [facility] CtrCocaine metabolite jmqkja2225-08-97 01:14:00* Test Item Value Reference Range Interpretation Comme nts Urine Cocaine Metabolite (te st code = 422710081) NEGATIVE [facility] CtrOpiates mvhcd6613-74-74 01:14:00* Test Item Value Reference Range Interpretation Comme nts Urine Opiates Screen (test c ode = 363542994) NEGATIVE [facility] CtrUrine hydrocodone measurement (mass/volume) 2024-06-13 01:14:00* Test Item Value Reference Range Interpretation Comme nts Hydrocodone Level (test code = 3681-4) NEGATIVE [facility] CtrAcetone olakjvzyncc1461-70-07 22:43:00* Test Item Value Reference Range Interpretation Comme nts Acetone Level (test code = 051299134) NEGATIVE [facility] CtrAcetone ulaufnxspag1388-84-12 22:43:00* Test Item Value Reference Range Interpretation Comme nts Acetone Level (test code = 523004427) NEGATIVE [facility] CtrAcetone zevmaikfscb8757-37-08 22:43:00* Test Item Value Reference Range Interpretation Comme nts Acetone Level (test code = 515320884) NEGATIVE [facility] CtrSerum procalcitonin jbnkkymjiyp0504-62-27 22:07:00 * Test Item Value Reference Range Interpretation Comme nts Procalcitonin (test code = 79974-7) 0.1 [facility] CtrSerum procalcitonin qctuqmwoljs2076-51-00 22:07:00 * Test Item Value Reference Range Interpretation Comme nts Procalcitonin (test code = 81892-4) 0.1 [facility] CtrSerum procalcitonin kslbujybnsn3380-44-64 22:07:00 * Test Item Value Reference Range Interpretation Comme nts Procalcitonin (test code = 97941-6) 0.1 [facility] BwxUYX5099-38-47 22:04:00* Test Item Value Reference Range Interpretation Comme nts HDL Cholesterol (test code = 00617787) 28 [facility] CtrLDL cholesterol, ltqsnq1397-84-95 22:04:00* Test Item Value Reference Range Interpretation Comme nts LDL Cholesterol (test code = 656165091) 112 [facility] CtrCholesterol/HDL wjtkz5376-08-11 22:04:00* Test Item Value Reference Range Interpretation Comme nts Coronary Heart Disease Risk Ratio (test code = 343638649) 6.142 [facility] CtrTriglycerides xftbh7712-38-45 22:04:00* Test Item Value Reference Range Interpretation Comme nts Triglycerides Level (test co de = LTG0205) 180 [facility] QcaLzevjslnr9407-77-04 22:04:00* Test Item Value Reference Range Interpretation Comme nts Magnesium Level (test code = 43764999) 2.0 [facility] CltCST9237-94-86 22:04:00* Test Item Value Reference Range Interpretation Comme nts HDL Cholesterol (test code = 15091805) 28 [facility] CtrLDL cholesterol, zfvxfp6156-65-12 22:04:00* Test Item Value Reference Range Interpretation Comme nts LDL Cholesterol (test code = 882002459) 112 [facility] CtrCholesterol/HDL daqqh5327-59-21 22:04:00* Test Item Value Reference Range Interpretation Comme nts Coronary Heart Disease Risk Ratio (test code = 318129589) 6.142 [facility] NreRoovrxqxuw5324-30-62 22:04:00* Test Item Value Reference Range Interpretation Comme nts Phosphorus Level (test code = TYY1226) 3.2 [facility] VoqFaacbawiw6409-20-18 22:04:00* Test Item Value Reference Range Interpretation Comme nts Magnesium Level (test code = 56740824) 2.0 [facility] CtrTriglycerides gasji7874-91-27 22:04:00* Test Item Value Reference Range Interpretation Comme nts Triglycerides Level (test co de = MGP6019) 180 [facility] SnwRsktzxcdl6631-83-32 22:04:00* Test Item Value Reference Range Interpretation Comme nts Magnesium Level (test code = 38191335) 2.0 [facility] CtrLactic ccpd7818-41-64 22:01:00* Test Item Value Reference Range Interpretation Comme nts Lactic Acid Level (test code = OAK7171) 1.16 [facility] crqr[facility]47[facility]26 22:01:00* Test Item Value Reference Range Interpretation Comme nts Lactic Acid Level (test code = SWR2959) 1.16 [facility] cbuq7960-85-50 22:01:00* Test Item Value Reference Range Interpretation Comme nts Lactic Acid Level (test code = LLB2048) 1.16 [facility] CtrProthrombin chpy9985-75-41 21:39:00* Test Item Value Reference Range Interpretation Comme nts Prothrombin Time (test code = 696722590) 10.9 [facility] INR gayzpxsgbnp7115-02-58 21:39:00* Test Item Value Reference Range Interpretation Comme nts Prothromb Time International Ratio (test code = 16079-0) 0.96 [facility] CtrProthrombin jjdz9131-93-68 21:39:00* Test Item Value Reference Range Interpretation Comme nts Prothrombin Time (test code = 854767670) 10.9 [facility] Hospital[facility] INR anninlmbdpy9806-98-97 21:39:00* Test Item Value Reference Range Interpretation Comme nts Prothromb Time International Ratio (test code = 89563-9) 0.96 [facility] CtrProthrombin doit8643-42-02 21:39:00* Test Item Value Reference Range Interpretation Comme nts Prothrombin Time (test code = 632425662) 10.9 [facility] INR dzpcbxlkiyc4494-65-47 21:39:00* Test Item Value Reference Range Interpretation Comme nts Prothromb Time International Ratio (test code = 57079-9) 0.96 [facility] CtrBilirubin acmrg5179-47-25 20:26:00* Test Item Value Reference Range Interpretation Comme nts Total Bilirubin (test code = SSH3128) 0.6 [facility] MllRGS5853-72-10 20:26:00* Test Item Value Reference Range Interpretation Comme nts Aspartate Amino Transf (AST/ SGOT) (test code = QAS5799) 19 [facility] CtrGlobulin jvi0831-76-96 20:26:00* Test Item Value Reference Range Interpretation Comme nts Globulin (test code = 226338110) 5.2 [facility] CtrALT (SGPT) ser/qsaq9745-95-77 20:26:00* Test Item Value Reference Range Interpretation Comme nts Alanine Aminotransferase (AL T/SGPT) (test code = 1742-6) 18 [facility] IekMoawwb8053-85-92 20:26:00* Test Item Value Reference Range Interpretation Comme nts Lipase (test code = 69365017) 21 [facility] CtrALP ser/ljkw3940-65-98 20:26:00* Test Item Value Reference Range Interpretation Comme nts Total Alkaline Phosphatase ( test code = 6768-6) 92 [facility] HtoKrazhl9177-38-16 20:26:00* Test Item Value Reference Range Interpretation Comme nts Lipase (test code = 87631843) 21 [facility] CtrBilirubin ycqzp2314-56-33 20:26:00* Test Item Value Reference Range Interpretation Comme nts Total Bilirubin (test code = GKO5941) 0.6 [facility] OstUJZ0578-96-13 20:26:00* Test Item Value Reference Range Interpretation Comme nts Aspartate Amino Transf (AST/ SGOT) (test code = RQQ4867) 19 [facility] CtrGlobulin lpk7083-39-19 20:26:00* Test Item Value Reference Range Interpretation Comme nts Globulin (test code = 611144261) 5.2 [facility] CtrALT (SGPT) ser/rmou1896-63-94 20:26:00* Test Item Value Reference Range Interpretation Comme nts Alanine Aminotransferase (AL T/SGPT) (test code = 1742-6) 18 [facility] XwcVsduan3208-45-34 20:26:00* Test Item Value Reference Range Interpretation Comme nts Lipase (test code = 00325154) 21 [facility] CtrALP ser/lynv6601-41-05 20:26:00* Test Item Value Reference Range Interpretation Comme nts Total Alkaline Phosphatase ( test code = 6768-6) 92 [facility] CtrComprehensive metabolic 2000 panel - Serum or Qzabkf4679-93-18 00:00:00* Test Item Value Reference Range Interpretation Comme nts Glucose [Mass/volume] in Serum or Plasma (test code = 2345-7) 387 mg/dL 65-99 H Urea nitrogen [Mass/volume] in Serum or Plasma (test code = 3094-0) 14 mg/dL 6-24 Creatinine [Mass/volume] in Serum or Plasma (test code = 2160-0) 0.90 mg/dL 0.76-1.27 Glomerular filtration rate/1.73 sq M.predicted among non-blacks [Volume Rate/Area] in Serum, Plasma or Blood by Creatinine-based formula (CKD-EPI) (test code = 50535-8) 97 mL/min/1.73 >59 Glomerular filtration rate/1.73 sq M.predicted among blacks [Volume Rate/Area] in Serum, Plasma or Blood by Creatinine-based formula (CKD-EPI) (test code = 06985-3) 112 mL/min/1.73 >59 Urea nitrogen/Creatinine [Mass Ratio] in Serum or Plasma (test code = 3097-3) 16 9-20 Sodium [Moles/volume] in Serum or Plasma (test code = 2951-2) 138 mmol/L 134-144 Potassium [Moles/volume] in Serum or Plasma (test code = 2823-3) 4.4 mmol/L 3.5-5.2 Chloride [Moles/volume] in Serum or Plasma (test code = 2075-0) 98 mmol/L 96-106 Carbon dioxide, total [Moles/volume] in Serum or Plasma (test code = 2028-9) 29 mmol/L 20-29 Calcium [Mass/volume] in Serum or Plasma (test code = 46999-9) 9.6 mg/dL 8.7-10.2 Protein [Mass/volume] in Serum or Plasma (test code = 2885-2) 7.1 g/dL 6.0-8.5 Albumin [Mass/volume] in Serum or Plasma (test code = 1751-7) 3.8 g/dL 3.8-4.9 Globulin [Mass/volume] in Serum by calculation (test code = 91343-4) 3.3 g/dL 1.5-4.5 Albumin/Globulin [Mass Ratio ] in Serum or Plasma (test code = 1759-0) 1.2 1.2-2.2 Bilirubin.total [Mass/volume ] in Serum or Plasma (test code = 1975-2) 0.5 mg/dL 0.0-1.2 Alkaline phosphatase [Enzymatic activity/volume] in Serum or Plasma (test code = 6768-6) 68 IU/L 39-117 Aspartate aminotransferase [Enzymatic activity/volume] in Serum or Plasma (test code = 1920-8) 49 IU/L 0-40 H Alanine aminotransferase [Enzymatic activity/volume] in Serum or Plasma (test code = 1742-6) 114 IU/L 0-[address] [facility] TSH [facility] - Serum or Bkmuzp0907-66-09 00:00:00* Test Item Value Reference Range Interpretation Comme nts Thyrotropin [Units/volume] i n Serum or Plasma by Detection limit <= 0.005 mIU/L (test code = 63304-7) 0.945 uIU/mL 0.450-4.500 Thyroxine (T4) free [Mass/volume] in Serum or Plasma (test code = 3024-7) 1.04 NG/dL 0.82-1.77 [facility] W Auto Differential panel - Blood 2020-11-24 00:00:00* Test Item Value Reference Range Interpretation Comme nts Leukocytes [#/volume] in Blo od by Automated count (test code = 6690-2) 4.4 x10e3/uL 3.4-10.8 Erythrocytes [#/volume] in Blood by Automated count (test code = 789-8) 4.85 x10e6/uL 4.14-5.80 Hemoglobin [Mass/volume] in Blood (test code = 718-7) 15.8 g/dL 13.0-17.7 Hematocrit [Volume Fraction] of Blood by Automated count (test code = 4544-3) 45.3 % 37.5-51.0 MCV [Entitic volume] by Automated count (test code = 787-2) 93 fL 79-97 MCH [Entitic mass] by Automa frank count (test code = 785-6) 32.6 pg 26.6-33.0 MCHC [Mass/volume] by Automa frank count (test code = 786-4) 34.9 g/dL 31.5-35.7 Erythrocyte distribution wid th [Ratio] by Automated count (test code = 788-0) 11.9 % 11.6-15.4 Platelets [#/volume] in Bloo d by Automated count (test code = 777-3) 184 x10e3/uL 150-450 Neutrophils/100 leukocytes i n Blood by Automated count (test code = 770-8) 59 % not estab. Lymphocytes/100 leukocytes i n Blood by Automated count (test code = 736-9) 30 % not estab. Monocytes/100 leukocytes in Blood by Automated count (test code = 5905-5) 8 % not estab. Eosinophils/100 leukocytes i n Blood by Automated count (test code = 713-8) 2 % not estab. Basophils/100 leukocytes in Blood by Automated count (test code = 706-2) 1 % not estab. 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 Morphology [Interpretation] in Blood Narrative (test code = 04389-5) screenplay writer [facility] ProgramAcute hepatitis 2000 panel - Serum 2020-11-24 00:00:00* Test Item Value Reference Range Interpretation Comme nts Hepatitis A virus IgM Ab [Pr esence] in Serum or Plasma by Immunoassay (test code = 00995-8) negative negative Hepatitis B virus surface Ag [Presence] in Serum or Plasma by Immunoassay (test code = 5196-1) negative negative Hepatitis B virus core IgM A b [Presence] in Serum or Plasma by Immunoassay (test code = 61761-4) negative negative Hepatitis C virus Ab Signal/ Cutoff in Serum or Plasma by Immunoassay (test code = 59225-2) <0.1 0.0-0.9 [facility] ProgramMicroalbumin/Creatinine [Mass Ratio] in Bvltc9600-44-87 00:00:00* Test Item Value Reference Range Interpretation Comme nts Creatinine [Mass/volume] in Urine (test code = 2161-8) 57.3 mg/dL not estab. Microalbumin [Mass/volume] i n Urine (test code = 03460-9) 161.1 ug/mL not estab. Albumin/Creatinine [Mass ratio] in Urine (test code = 9318-7) 281 mg/g creat 0-29 H [facility] ProgramHemoglobin A1c/Hemoglobin.total in Gpurw9602-52-67 00:00:00* Test Item Value Reference Range Interpretation Comme nts Hemoglobin A1c/Hemoglobin.to maura in Blood (test code = 4548-4) 12.1 % 4.8-5.6 H Glucose mean value [Mass/vol ume] in Blood Estimated from glycated hemoglobin (test code = 81792-5) 301 mg/dL [facility]PS[facility], serum or dinaov8933-35-19 00:00:00* Test Item Value Reference Range Interpretation Comme nts Prostate specific Ag [Mass/v olume] in Serum or Plasma (test code = 2857-1) 0.3 NG/mL 0.0-4.0 reflex criteria (test code = reflex criteria) comment [facility] HospitalHepatitis B virus surface Ab [Presence] in Vwnua3985-57-69 00:00:00* Test Item Value Reference Range Interpretation Comme nts Hepatitis B virus surface Ab [Presence] in Serum (test code = 19778-7) non reactive [facility]HIV [facility]+2 Ab+HIV1 p24 Ag [Presence] in Serum or Plasma by Ltcasjbvwgv8624-66-85 00:00:00* Test Item Value Reference Range Interpretation Comme nts HIV 1+2 Ab+HIV1 p24 Ag [Presence] in Serum or Plasma by Immunoassay (test code = 01758-7) non reactive non reactive [facility] Hospitaldiabetes patient bfxjwadeh9889-82-59 00:00:00* Test Item Value Reference Range Interpretation Comme nts pdf (test code = pdf) . [facility] in Capillary [id number] 15:56:00* Test Item Value Reference Range Interpretation Comme nts Blood Glucose: mg/dl (test c ode = Blood Glucose: mg/dl) 105 [facility] Notes <thead> Date/Time Note Provider Source [facility] [id number] 23:37:04 Future Tests Future scheduled test information is unavailable Pending Tests Pending diagnostic test information is unavailable Future Visits Future appointment information is unavailable Referrals to Other Providers <thead> Reason for Referral Referral Start Date Provider Provider Contact Information Provider Address NO PHYSICIAN NO PHYSICIAN Future Procedures <thead> Procedure Name Ordered Date Scheduled Date Insert Peripheral IV Access June 12, 2024 7: 37pm June 12, 2024 7:35pm Cardiac, BP, Pulse Ox Monitor June 12, 2024 7:37pm June 12, 2024 7:35pm Remove Clothing/Place in Gown June 12, 2024 7:37pm June 12, 2024 7:35pm VS - Adult June 12, 2024 7:37pm June 12, 2024 7:35pm Electrocardiogram, Complete June 12, 2024 7: 37pm June 12, 2024 7:35pm Ad[facility] to [facility] June 12, [facility] 8:[facility] Resuscitation Status June 12, 2024 9:06pm [facility] 2023 8:59pm P.T. Eval and Treat June 12, 2024 9:06pm Aug [facility] 2023 8:59pm O. T. Eval and Treat June 12, 2024 9:06pm [facility] 2023 8:59pm Case Management Consultation June 12, 2024 9 :06pm June 12, 2024 8:59pm TRANSFER ROOM June 12, 2024 9:43pm June 12, 2024 9:43pm CPAP MANAGEMENT June 12, 2024 9:52pm June 12, 2024 ECHOCARDIOGRAM COMPLETE June 14, 2024 6:52am June 14, 2024 PHARMACIST CONSULT June 14, 2024 9:42am [facility] 2023 PICC/Midline Consult/Insertion June 16, 2024 12:56pm June 16, 2024 PICC KIT 5 FR June 17, 2024 3:04pm June 17, 2024 3:03pm PICC PLACEMENT W/US GUID MS June 17, 2024 3: 04pm June 17, 2024 3:03pm PICC/CVC SECUREMENT DEVICE June 17, 2024 3:0 4pm June 17, 2024 3:03pm DISCHARGE PATIENT June 17, 2024 5:20pm [facility] 2023 Discharge Request June 17, 2024 7:37pm [facility] 2023 Future Medications Future medication information is unavailable Patient Instructions <tbody> Levofloxacin Injection Losartan Tablets Pyelonephritis, Adult, Easy- to-Read Carvedilol Tablets Amlodipine Tablets Influenza, Adult, Easy-to-Re ad Nausea and Vomiting, Adult, [id number]-Budy Kidney Stones Type 2 Diabetes Mellitus, Se lf-Care, Adult [facility] [id number] 23:37:04 [facility] [id number] 10:57:39 Patient Care Team <thead> Team Status: Active Member Role Status Dates . NO PHYSICIAN primary care physician Active ASHLEY COSME Admitting Provider Active ASHLEY COSME Attending Provider Active ANGUS PAYNE MD Emergency Provider Active . NO PHYSICIAN Primary Care Physician Active ARTIE BROWN Attending Provider Active ROBIN TAO Next of Kin Active ROBIN TAO Emergency Contact Active SHANA TAO Guarantor Active [facility] [id number] 10:57:39 Future Tests Future scheduled test information is unavailable Pending Tests Pending diagnostic test information is unavailable Future Visits Future appointment information is unavailable Referrals to Other Providers <thead> Reason for Referral Referral Start Date Provider Provider Contact Information Provider Address NO PHYSICIAN NO PHYSICIAN Future Procedures <thead> Procedure Name Ordered Date Scheduled Date Insert Peripheral IV Access June 12, 2024 7: 37pm June 12, 2024 7:35pm Cardiac, BP, Pulse Ox Monitor June 12, 2024 7:37pm June 12, 2024 7:35pm Remove Clothing/Place in Gown June 12, 2024 7:37pm June 12, 2024 7:35pm VS - Adult June 12, 2024 7:37pm June 12, 2024 7:35pm Electrocardiogram, Complete June 12, 2024 7: 37pm June 12, 2024 7:35pm Admit to Inpatient June 12, 2024 9:06pm [facility] 2023 8:59pm Resuscitation Status June 12, 2024 9:06pm [facility] 2023 8:59pm P.T. Eval and Treat June 12, 2024 9:06pm Aug ust 2023 8:59pm O. T. Eval and Treat June 12, 2024 9:06pm [facility] 2023 8:59pm Case Management Consultation June 12, 2024 9 :06pm June 12, 2024 8:59pm TRANSFER ROOM June 12, 2024 9:43pm June 12, 2024 9:43pm CPAP MANAGEMENT June 12, 2024 9:52pm June 12, 2024 ECHOCARDIOGRAM COMPLETE June 14, 2024 6:52am June 14, 2024 PHARMACIST CONSULT June 14, 2024 9:42am [facility] 2023 PICC/Midline Consult/Insertion June 16, 2024 12:56pm June 16, 2024 PICC KIT 5 FR June 17, 2024 3:04pm June 17, 2024 3:03pm PICC PLACEMENT W/US GUID MS June 17, 2024 3: 04pm June 17, 2024 3:03pm PICC/CVC SECUREMENT DEVICE June 17, 2024 3:0 4pm June 17, 2024 3:03pm DISCHARGE PATIENT June 17, 2024 5:20pm [facility] 2023 Discharge Request June 17, 2024 7:37pm [facility] 2023 Future Medications Future medication information is unavailable Patient Instructions <tbody> Levofloxacin Injection Losartan Tablets Pyelonephritis, Adult, Easy- to-Read Carvedilol Tablets Amlodipine Tablets Influenza, Adult, Easy-to-Re ad Nausea and Vomiting, Adult, Acrp-fs-Sena Kidney Stones Type 2 Diabetes Mellitus, Se lf-Care, Adult [facility] [id number] 10:57:39 [facility] [id number] 19:46:32 [facility] [id number] 19:46:32 Future Tests Future scheduled test information is unavailable Pending Tests <thead> Test Name Ordered Date Scheduled Date B-Hydroxybutyrate June 13, 2024 1:00am Future Visits Future appointment information is unavailable Referrals to Other Providers <thead> Reason for Referral Referral Start Date Provider Provider Contact Information Provider Address NO PHYSICIAN NO PHYSICIAN Future Procedures <thead> Procedure Name Ordered Date Scheduled Date Insert Peripheral IV Access June 12, 2024 7: 37pm June 12, 2024 7:35pm Cardiac, BP, Pulse Ox Monitor June 12, 2024 7:37pm June 12, 2024 7:35pm Remove Clothing/Place in Gown June 12, 2024 7:37pm June 12, 2024 7:35pm VS - Adult June 12, 2024 7:37pm June 12, 2024 7:35pm Electrocardiogram, Complete June 12, 2024 7: 37pm June 12, 2024 7:35pm Admit to Inpatient June 12, 2024 9:06pm [facility] 2023 8:59pm Resuscitation Status June 12, 2024 9:06pm [facility] 2023 8:59pm P.T. Eval and Treat June 12, 2024 9:06pm Aug ust 2023 8:59pm O. T. Eval and Treat June 12, 2024 9:06pm [facility] 2023 8:59pm Case Management Consultation June 12, 2024 9 :06pm June 12, 2024 8:59pm TRANSFER ROOM June 12, 2024 9:43pm June 12, 2024 9:43pm CPAP MANAGEMENT June 12, 2024 9:52pm June 12, 2024 BETA HYDROXYBUTYRATE June 12, 2024 11:05pm A [facility] 2023 12:48am BLOOD CULTURE, ADULT June 14, 2024 12:42am A [facility] 2023 12:41am ECHOCARDIOGRAM COMPLETE June 14, 2024 6:52am June 14, 2024 PHARMACIST CONSULT June 14, 2024 9:42am Aug[facility] 2023 PICC/Midline Consult/Insertion June 16, 2024 12:56pm June 16, 2024 PICC KIT 5 FR June 17, 2024 3:04pm June 17, 2024 3:03pm PICC PLACEMENT W/US GUID MS June 17, 2024 3: 04pm June 17, 2024 3:03pm PICC/CVC SECUREMENT DEVICE June 17, 2024 3:0 4pm June 17, 2024 3:03pm DISCHARGE PATIENT June 17, 2024 5:20pm [facility] 2023 Discharge Request June 17, 2024 7:37pm [facility] 2023 Future Medications Future medication information is unavailable Patient Instructions <tbody> Levofloxacin Injection Losartan Tablets Pyelonephritis, Adult, Easy- to-Read Carvedilol Tablets Amlodipine Tablets Influenza, Adult, Easy-to-Re ad Nausea and Vomiting, Adult, Nvfa-[id number] Kidney Stones Type 2 Diabetes Mellitus, Se lf-Care, Adult [facility] [id number] 19:46:32 [facility] [id number] 19:46:32 Patient Care Team <thead> Team Status: Active Member Role Status Dates . NO PHYSICIAN primary care physician Active ASHLEY COSME Admitting Provider Active ASHLEY COSME Attending Provider Active ANGUS PAYNE MD Emergency Provider Active . NO PHYSICIAN Primary Care Physician Active ROBIN TAO Next of Kin Active ROBIN TAO Emergency Contact Active SHANA TAO Guarantor Active [facility] C[facility]
[2024-08-11] MEDS ORDERED: MORPHINE 4 MG/ML SYR ONE (21:24)
[2024-08-11] MEDS ORDERED: ONDANSETRON 4 MG/2 ML VIAL ONE (21:24)
[2024-08-11] MEDS ORDERED: NA CHLORIDE 0.9% 100 ML ONE (21:24)
[2024-08-11] MEDS ORDERED: NA CHLORIDE 0.9% 1,000 ML ONE (21:25)
[2024-08-11] MEDS ORDERED: PIPERACIL/TAZO 3.375 GM VIAL IV ONE (21:25)
[2024-08-11 21:49] LABS: SARS-CoV-2 Antigen CONTROL BLUE LINE VIS/BG OK; SARS-CoV-2 Antigen Rapid Res Negative (Negative)
[2024-08-11 21:52] LABS: PT Prothrombin Time 14.5 SECONDS (9.4-12.5); Protime INR 1.3
[2024-08-11 22:07] LABS: Albumin 2.2 g/dL (3.4-5.0); Albumin/Globulin Ratio 0.4 (1.1-1.8); Anion Gap 10.2 mEq/L (5.0-15.0); Bilirubin Direct 0.2 mg/dL (0-0.2); Bilirubin Indirect, Calculated 0.2 mg/dL (0.2-0.8); Bilirubin Total 0.4 mg/dL (0.2-1.0); Globulin 5.9 g/dL (2.3-3.5); Magnesium 2.3 mg/dL (1.6-2.4); Potassium 4.2 mEq/L (3.5-5.1); Protein, Total 8.1 g/dL (6.4-8.2)
[2024-08-11 22:09] LABS: Absolute Lymphocytes (CBC) 0.7 K/uL (0.7-4.9); Absolute Monocytes 0.8 K/uL (0.1-1.3); Basophils % 0.2 % (0-1.3); Eosinophils % 0.2 % (0-4.4); Hemoglobin 8.5 g/dL (13.6-17.9); Lymphocytes % 6.9 % (15.3-44.8); MCHC 35.3 g/dL (32.0-36.0); MCV 87.8 fL (80-100); MPV 7.7 fL (7.6-11.3); Monocytes % 8.1 % (3.3-12.3); Neutrophils % 84.6 % (41.7-73.7); Nucleated Red Blood Cells % 0.1 % (0-0); Platelets 314 thou/uL (152-406); RBC Red Blood Cell Count 2.74 M/uL (4.33-5.43)
--- NOTE | 2024-08-11 22:14 | RAD REPORT ---
EXAMINATION: ONE VIEW CHEST XR CLINICAL INDICATION: Male, 59 years old.,CHEST PAIN TECHNIQUE: Frontal chest projection is submitted. Examination is limited by patient positioning and t echnique. COMPARISON: No prior exam. FINDINGS: The lungs are well inflated and clear. No pneumothorax or sizable effusion. The heart is normal in s ize. IMPRESSION: No acute intrathoracic abnormalities.
--- NOTE | 2024-08-11 22:29 | RAD REPORT ---
EXAM: CT CHEST, ABDOMEN AND PELVIS WITHOUT CONTRAST CLINICAL INDICATION: Male, 59 years old. [facility] MAIN pneumonia Bed Name: 19 TECHNIQUE: CT chest, abdomen and pelvis was performed, without IV contrast, as per department protoco l. Axial, sagittal and coronal reconstructions were obtained. One or more of the following dose reduction techniques were used: Automated exposure control, adjustment of the mA and/or kV according to the patient size, and/or iterative reconstruction. Unless otherwise specified, incidental findings do not require dedicated imaging follow-up. COMPARISON: No prior exam. FINDINGS: The lack of intravenous contrast limits the sensitivity of this exam for evaluation of solid visceral organs, vascular structures, and retroperitoneum. Chest: LOWER NECK/CHEST WALL: Visualized thyroid gland and soft tissues are normal. LUNGS AND AIRWAYS: Airways are clear. Pleural based right lower lobe irregular 1.6 cm nodular opacity . Subpleural upper segment left lower lobe 5 mm subsolid nodule on axial image 39/140. PLEURA: Trace right layering pleural effusion. No pneumothorax. Hemidiaphragms are normally positione d. MEDIASTINUM AND LYMPH NODES: No mediastinal mass or fluid collection. Normal size mediastinal, hilar, and axillary lymph nodes. THORACIC AORTA: Normal caliber and configuration. PULMONARY ARTERIES: Normal caliber. HEART: Unremarkable. Abdomen/Pelvis LIVER: Normal in size and contour. No focal lesion. GALLBLADDER/BILE DUCTS: No biliary ductal dilatation. PANCREAS: No mass, ductal dilation, or narciso-pancreatic fluid. SPLEEN: Normal size. No focal lesion. ADRENALS: Normal; no mass. KIDNEYS AND URETERS: Normal size and contour. No hydronephrosis. Some excreted residual contrast in t he renal calyces and bladder limits evaluation for calculi exophytic left renal interpolar 2.5 cm cyst. GASTROINTESTINAL TRACT: Stomach is non-dilated. Small bowel has normal course and caliber. No colonic wall thickening or pericolonic inflammatory changes. PERITONEUM: No free fluid. LYMPH NODES: No lymphadenopathy. ABDOMINAL AORTA AND OTHER VESSELS: Normal caliber aorta and IVC. URINARY BLADDER: Normal contour. REPRODUCTIVE ORGANS: No pathologic process. MUSCULOSKELETAL: No acute or suspicious osseous abnormality. ADDITIONAL FINDINGS: Bilateral inguinal hernias containing fat. Heterogeneous fat stranding some hype rdensity in the right groin, probably relates to recent vascular access. IMPRESSION: Pleural-based right lower lobe irregular 1.6 cm nodular opacity. Trace layering right pleural effusio n. The findings may relate to infectious/inflammatory process such as focal pneumonitis. A follow-up CT of the chest in 1-3 months is recommended to ensure resolution and absence of any suspic ious nodules. Another incidentally noted peripheral left lower lobe 5 mm cystic solid nodule, can also be reevaluat ed on a follow-up CT chest. Right inguinal soft tissue changes, may suggest recent vascular access.
--- NOTE | 2024-08-11 22:31 | RAD REPORT ---
EXAM: Head Brain Wo Cont HISTORY: confusion COMPARISON: None TECHNIQUE: Multiple contiguous axial images were obtained for a CT of the brain without contrast. Sag ittal and coronal reformats were performed. One or more of the following dose reduction techniques were used: Automated exposure control, adjus tment of the mA and kV according to patient size, and iterative reconstruction. Unless otherwise specified, incidental findings do not require dedicated imaging follow-up. FINDINGS: No evidence of hydrocephalus, intracranial hemorrhage, or extra-axial fluid collection. The brain is normal in morphology. The calvarium is intact. The visualized paranasal sinuses and mastoid air cells are essentially clear . IMPRESSION: No evidence of acute intracranial abnormality.
[2024-08-11] MEDS ORDERED: VANCOMYCIN 1 GM/VIAL ONE (22:53)
[2024-08-11] MEDS ORDERED: VANCOMYCIN 500 MG/VIAL ONE (22:53)
[2024-08-11] MEDS ORDERED: NA CHLORIDE 0.9% 500 ML ONE (22:54)
[2024-08-11 22:57] LABS: Specific Gravity > 1.030 (1.005-1.030); Sqamous Epithelial <5 /HPF (None Seen); Urine Bacteria None Seen /HPF (<20); Urine Bilirubin NEGATIVE (Negative); Urine Blood 3+ (Negative); Urine Clarity Extremely Turbid (Clear); Urine Color Yellow (Yellow); Urine Crystals Unidentified Few /HPF (None Seen); Urine Culture Reflex Order NOT NEEDED; Urine Glucose 1+ (Negative); Urine Ketones TRACE (Negative); Urine Microscopic Reflex YN ORDER UMIC; Urine Mucus Slight /HPF (None Seen); Urine Nitrite NEGATIVE (Negative); Urine Protein 3+ (Negative); Urine Urobilinogen Normal (Normal); Urine WBC <5 /HPF (<5); Urine Yeast (Budding) Trace /HPF (None Seen); Urine pH 5.5 (5.0-7.0)
[2024-08-11] MEDS ORDERED: ACETAMINOPHEN 500 MG TAB ONE (23:10)
--- NOTE | 2024-08-12 00:25 | EDPHYS ---
Physician Documentation [facility] Name: Donte Arzola Age: 59 yrs Sex: Male : 1965 Arrival Date: 08/11/2024 Time: 20:08 Bed 19 Private MD: ED Physician Esteban Dallas HPI: 08/11 20:12 This 59 yrs old Male presents to ER via Unassigned with complaints of Chest sp4 Tightness, Back Pain. 20:57 59-year-old male who was discharged from [facility] today in the sp4 afternoon.. Patient was managed for influenza A, vomiting, uncontrolled diabetes, UTI, renal calculus on the right, pyelonephritis, elevated troponin, acute kidney injury, uncontrolled hypertension, bronchopneumonia, NSTEMI, hiccups, unstable angina, hyponatremia, chest pain. Also apparently had left heart cath via right groin approach Dr. Hooper with cardiology. Patient was informed that he needs total of 5 stents but his condition precluded stent placement.. Patient's medications include amlodipine besylate, aspirin, atorvastatin, azithromycin, cefdinir, isosorbide, methocarbamol, tramadol, carvedilol, losartan, metformin. Patient states after his discharge from the hospital he had worsening generalized weakness shortness of breath and chest pain. He also reported running fevers. . 21:40 Family also reported that patient is hallucinating. Patient's admission record states sp4 patient was admitted 08/07/2024 and discharged 08/11/2024. He presented to the [facility] with posterior chest pain back pain and hiccups. Patient was found to have hyperglycemia and elevated D-dimer elevated troponin. CT chest with PE protocol was negative for PE. CT discovered multifocal patchy peribronchovascular groundglass opacities. Findings consistent with bronchopneumonia and infectious inflammatory etiology. Patient was admitted to the hospitalist service and cardiology consulted for elevated troponins. Patient was given empiric antibiotics and his hiccups have resolved. Patient was titrated on blood pressure medications. Patient had intermittent confusion while in the hospital. Stress test was performed on the and a left heart cath was performed with cardiology reporting that patient needs PCI to LAD. But patient will require his stent in a higher level of medical care. Left heart cath report from 08/11/2024 revealed patient had left heart cath catheterization with selective coronary angiography, left ventriculography, sheath angiography and Vascade deployment. Patient was found to have severe diffuse LAD disease with occluded apical segment. Severe branch of the diagonal stenosis 90%. Diminutive left circumflex artery and a dominant right coronary artery. Preserved LV systolic function with normal wall motion for the apical segment. Ejection fraction was found to be 60 to 70%. LVEDP was 25 mmHg.. Historical: - Allergies: 20:52 No Known Allergies; vc1 - PMHx: 20:52 Diabetes mellitus; Hypertensive disorder; Hypercholesterolemia; vc1 - PSHx: 20:52 Heart Cath (August 06, 2024); vc1 - Immunization history:: Client reports having NOT received the Covid vaccine. - Infectious Disease History:: Denies. - Social history:: Smoking status: Patient/guardian denies using tobacco, but has a distant history of tobacco abuse. - Family history:: not pertinent. ROS: 21:44 Constitutional: Positive for fever, generalized weakness, overall feeling unwell, chest sp4 pain, shortness of breath, and positive for auditory hallucinations. 21:44 All other systems are negative, Exam: 21:44 Constitutional: This is a well developed, ill-appearing male, signs of diffuse plaque sp4 psoriasis, signs of moderate physical deconditioning, afebrile on arrival, hypertensive on arrival, appears lucid and answers all questions appropriately. Patient has right groin Tegaderm dressing over the left heart cath access. Head/Face: Normocephalic, atraumatic. Eyes: Pupils equal round and reactive to light, extra-ocular motions intact. Lids and lashes normal. Conjunctiva and sclera are not injected. Cornea within normal limits. Periorbital areas with no swelling, redness, or edema. ENT: Nares patent. No nasal discharge, no septal abnormalities noted. Tympanic membranes are normal and external auditory canals are clear. Oropharynx with no redness, swelling, or masses, exudates, or evidence of obstruction, uvula midline. Mucous membranes moist. Neck: Trachea midline, no thyromegaly or masses palpated, and no cervical lymphadenopathy. Supple, full range of motion without nuchal rigidity, or vertebral point tenderness. Chest/axilla: Normal chest wall appearance and motion. Nontender with no deformity. No lesions are appreciated. Cardiovascular: Regular rate and rhythm with a normal S1 and S2. No gallops, murmurs, or rubs. Normal PMI, no JVD. No pulse deficits. Respiratory: Lungs have equal breath sounds bilaterally, clear to auscultation and percussion. No rales, rhonchi or wheezes noted. No increased work of breathing, no retractions or nasal flaring. Abdomen/GI: Soft, with normal bowel sounds. No distension or tympany. No guarding or rebound. No evidence of tenderness throughout. Back: No spinal tenderness. No costovertebral tenderness. Male : Normal genitalia with no discharge or lesions. Skin: Warm, dry with normal turgor. Normal color with no rashes, no lesions, and no evidence of cellulitis. MS/ Extremity: Pulses equal, no cyanosis. Neurovascular intact. Full, normal range of motion. Neuro: Awake and alert, GCS 15, oriented to person, place, Cranial nerves II-XII grossly intact. Motor strength 5/5 in all extremities. Sensory grossly intact. 21:44 ECG was reviewed by the Attending Physician. EG at 2041 reveals normal sinus rhythm rate 79, left ventricular hypertrophy Vital Signs: 20:44 BP 163 / 71; Pulse 79; Resp 14; Temp 99.6; Pulse Ox 98% ; vc1 21:15 Weight 80.5 kg; Height 5 ft. 8 in. ; vc1 22:20 BP 153 / 81; Pulse 75; Resp 19; Pulse Ox 98% on R/A; kd3 23:25 BP 150 / 89; Pulse 71; Resp 16; Temp 99.9(O); Pulse Ox 100% on R/A; kd3 08/12 01:46 BP 156 / 86; Pulse 73; Resp 19; Pulse Ox 96% on R/A; kd3 05:15 BP 157 / 97; Pulse 75; Resp 16; Pulse Ox 99% ; kd3 08/11 21:15 Body Mass Index 26.98 (80.50 kg, 172.72 cm) vc1 NIH Stroke Scale Scores: 08/11 21:44 NIHSS Score: 0 sp4 Wilson Coma Score: 21:44 Eye Response: spontaneous(4). Motor Response: obeys commands(6). Verbal Response: sp4 oriented(5). Total: 15. MDM: 20:40 Medical Screening Exam initiated sp4 21:47 Differential diagnosis: acute myocardial infarction, acute pericarditis, anxiety, sp4 coronary artery disease chest wall pain, congestive heart failure cholecystitis. Data reviewed: vital signs, nurses notes, old medical records, lab test result(s), EKG, radiologic studies, CT scan, plain films. 08/12 03:40 HEART Score: History: Moderately Suspicious (1), ECG: Normal (0), Age: > 45 and < 65 sp4 years (1), Risk Factors: > or = 3 Risk factors for atherosclerotic disease (2), Troponin: < or = 1 x Normal Limit (0), Total Score = 4. ED course: EXAMINATION: ONE VIEW CHEST XR CLINICAL INDICATION: Male, 59 years old.,CHEST PAIN TECHNIQUE: Frontal chest projection is submitted. Examination is limited by patient positioning and technique. COMPARISON: No prior exam. FINDINGS: The lungs are well inflated and clear. No pneumothorax or sizable effusion. The heart is normal in size. IMPRESSION: No acute intrathoracic abnormalities.. ED course: EXAM: Head Brain Wo Cont HISTORY: confusion COMPARISON: None TECHNIQUE: Multiple contiguous axial images were obtained for a CT of the brain without contrast. Sagittal and coronal reformats were performed. One or more of the following dose reduction techniques were used: Automated exposure control, adjustment of the mA and kV according to patient size, and iterative reconstruction. Unless otherwise specified, incidental findings do not require dedicated imaging follow-up. FINDINGS: No evidence of hydrocephalus, intracranial hemorrhage, or extra-axial fluid collection. The brain is normal in morphology. The calvarium is intact. The visualized paranasal sinuses and mastoid air cells are essentially clear. IMPRESSION: No evidence of acute intracranial abnormality. . ED course: CT chest - EXAM: CT CHEST, ABDOMEN AND PELVIS WITHOUT CONTRAST CLINICAL INDICATION: Male, 59 years old. [facility] MAIN pneumonia Bed Name: 19 TECHNIQUE: CT chest, abdomen and pelvis was performed, without IV contrast, as per department protocol. Axial, sagittal and coronal reconstructions were obtained. One or more of the following dose reduction techniques were used: Automated exposure control, adjustment of the mA and/or kV according to the patient size, and/or iterative reconstruction. Unless otherwise specified, incidental findings do not require dedicated imaging follow-up. COMPARISON: No prior exam. FINDINGS: The lack of intravenous contrast limits the sensitivity of this exam for evaluation of solid visceral organs, vascular structures, and retroperitoneum. Chest: LOWER NECK/CHEST WALL: Visualized thyroid gland and soft tissues are normal. LUNGS AND AIRWAYS: Airways are clear. Pleural based right lower lobe irregular 1.6 cm nodular opacity. Subpleural upper segment left lower lobe 5 mm subsolid nodule on axial image 39/140. PLEURA: Trace right layering pleural effusion. No pneumothorax. Hemidiaphragms are normally positioned. MEDIASTINUM AND LYMPH NODES: No mediastinal mass or fluid collection. Normal size mediastinal, hilar, and axillary lymph nodes. THORACIC AORTA: Normal caliber and configuration. PULMONARYARTERIES: Normal caliber. HEART: Unremarkable. Abdomen/Pelvis LIVER: Normal in size and contour. No focal lesion. GALLBLADDER/BILE DUCTS: No biliary ductal dilatation. PANCREAS: No mass, ductal dilation, or narciso-pancreatic fluid. SPLEEN: Normal size. No focal lesion. ADRENALS: Normal; no mass. KIDNEYS AND URETERS: Normal size and contour. No hydronephrosis. Some excreted residual contrast in the renal calyces and bladder limits evaluation for calculi exophytic left renal interpolar 2.5 cm cyst. GASTROINTESTINAL TRACT: Stomach is non-dilated. Small bowel has normal course and caliber. No colonic wall thickening or pericolonic inflammatory changes. PERITONEUM: No free fluid. LYMPH NODES: No lymphadenopathy. ABDOMINAL AORTA AND OTHER VESSELS: Normal caliber aorta and IVC. URINARYBLADDER: Normal contour. REPRODUCTIVE ORGANS: No pathologic process. MUSCULOSKELETAL: No acute or suspicious osseous abnormality. ADDITIONAL FINDINGS: Bilateral inguinal hernias containing fat. Heterogeneous fat stranding some hyperdensity in the right groin, probably relates to recent vascular access. IMPRESSION: Pleural-based right lower lobe irregular 1.6 cm nodular opacity. Trace layering right pleural effusion. The findings may relate to infectious/inflammatory process such as focal pneumonitis. A follow-up CT of the chest in 1-3 months is recommended to ensure resolution and absence of any suspicious nodules. Another incidentally noted peripheral left lower lobe 5 mm cystic solid nodule, can also be reevaluated on a follow-up CT chest. Right inguinal soft tissue changes, may suggest recent vascular access. . 08/11 20:13 Order name: Basic Metabolic Panel; Complete Time: 23:09 sp4 08/11 20:13 Order name: CBC with Diff; Complete Time: 23:09 sp4 08/11 20:13 Order name: LFT's; Complete Time: 23:09 sp4 08/11 20:13 Order name: Magnesium; Complete Time: 23:09 4 08/11 20:13 Order name: NT PRO-BNP; Complete Time: 23:09 4 08/11 20:13 Order name: PT-INR; Complete Time: 23:09 [facility] 08/11 20:13 Order name: Troponin HS; Complete Time: 23:09 [facility] 08/11 20:46 Order name: CRP; Complete Time: 23: [facility] 08/11 20:46 Order name: Influenza Screen (a \T\ B); Complete Time: 23:09 [facility] 08/11 20:46 Order name: SARS RAPID; Complete Time: 23:09 [facility] 08/11 20:46 Order name: Blood Culture Adult (2) [facility] 08/11 20:46 Order name: Urinalysis w/ reflexes; Complete Time: 23:09 [facility] 08/11 21:00 Order name: Lipase; Complete Time: 23:09 [facility] 08/11 21:03 Order name: Lactate w/ 2H reflex if indic.; Complete Time: 23:09 [facility] 08/12 05:06 Order name: Urinalysis w/ reflexes EDMS 08/12 05:06 Order name: CBC with Automated Diff EDMS 08/12 05:06 Order name: CBC with Automated Diff EDMS 08/12 05:06 Order name: Comprehensive Metabolic Panel EDMS 08/12 05:06 Order name: Comprehensive Metabolic Panel EDMS 08/12 05:06 Order name: Lipid Profile EDMS 08/12 05:06 Order name: Lipid Profile EDMS 08/12 05:06 Order name: Troponin High Sensitivity EDMS 08/12 05:06 Order name: Troponin High Sensitivity EDMS 08/12 05:06 Order name: Troponin High Sensitivity EDMS 08/12 05:06 Order name: Troponin High Sensitivity EDMS 08/12 05:06 Order name: Troponin High Sensitivity EDMS 08/12 05:06 Order name: Troponin High Sensitivity EDMS 08/11 20:13 Order name: XRAY Chest (1 view); Complete Time: 23:09 [facility] 08/11 20:55 Order name: CT Chest Abdomen Pelvis W/O Contrast; Complete Time: 23:09 [facility] 08/11 21:14 Order name: CT Head Brain wo Cont; Complete Time: 23:09 [facility] 08/11 20:13 Order name: EKG; Complete Time: 20:13 sp4 08/12 05:06 Order name: CONS Physician Consult EDFL 08/11 20:13 Order name: Cardiac monitoring; Complete Time: 20:53 sp4 08/11 20:13 Order name: EKG - Nurse/Tech; Complete Time: 20:53 sp4 08/11 20:13 Order name: IV Saline Lock; Complete Time: 21:39 sp4 08/11 20:13 Order name: Labs collected and sent; Complete Time: 21:39 sp4 08/11 20:13 Order name: O2 Per Protocol; Complete Time: 21:39 sp4 08/11 20:13 Order name: O2 Sat Monitoring; Complete Time: 21:39 sp4 EC/15 21:44 Rate is 79 beats/min. Rhythm is regular, Normal Sinus Rhythm. QRS [place] is Normal. NV sp4 interval is normal. QRS interval is normal. QT interval is normal. No Q waves. T waves are Normal. No ST changes noted. Clinical impression: No evidence of ischemia. Interpreted by me. Reviewed by me. Administered Medications: 21:38 Drug: Piperacillin-Tazobactam IVPB 3.375 grams IVPB once over 60 mins; (mix in NS 100 tm6 mL) Route: IVPB; Infused Over: 60 mins; Site: left forearm; 23:08 Follow up: IV Status: Completed infusion kd3 21:38 Drug: NS 0.9% IV 1000 ml IV at 125 ml/hr continuous Route: IV; Rate: 125 ml/hr; Site: tm6 left forearm; 21:39 Drug: morphine IVP or IV 4 mg IVP once over 4 mins Route: IVP; Infused Over: 4 mins; tm6 Site: left forearm; 21:39 Drug: Ondansetron IVP 4 mg IVP once; over 2 minutes Route: IVP; Site: left forearm; tm6 23:08 Drug: vancoMYCIN IVPB 20 mg/kg IVPB once; once over 2 hours; not to exceed 2 grams; kd3 (mix in 250 to 500mL NS) Route: IVPB; Site: left forearm; 23:13 Drug: Acetaminophen PO 1000 mg PO once Route: PO; kd3 08/12 02:31 Drug: morphine IVP or IV 2 mg IVP once over 4 mins Route: IVP; Infused Over: 4 mins; kd3 Site: left antecubital; 05:14 Drug: HYDROcodone-acetaminophen PO 5 mg-325 mg 1 tabs PO once Route: PO; kd3 Disposition Summary: 08/12/24 00:24 Hospitalization Ordered Notes: Hospitalization Status: Inpatient Admission sp4 Provider: Salazar Fernando Condition: Stable sp4 Problem: new sp4 Symptoms: have improved sp4 Bed/Room Type: Standard sp4 Location: Telemetry/MedSurg (Inpatient)(08/12/24 07:08) Room Assignment: 430(08/12/24 07:08) Diagnosis - Unstable angina sp4 - Acute right lower lung pneumonia, coronary artery disease, unstable angina, sp4 congestive heart failure Forms: - Medication Reconciliation Form sp4 - SBAR form sp4 - Leadership Thank You Letter sp4 NIH Stroke Scale - NIH Stroke Score Date: 08/11/2024 Time: 21:44 Total Score = 0 10. Dysarthria (speech clarity - read or repeat words) - 0(Normal) 11. Extinction and Inattention (visual/tactile/auditory/spatial/personal) - 0(No abnormality) 1a. Level of Consciousness (LOC) - 0(Alert) 1b. Level of Consciousness (LOC) (Month \T\ Age) - 0(Both) 1c. LOC Commands (Open \T\ Closes Eyes/Net Mvc Developer) - 0(Both) 2. Best Gaze (Lateral Gaze Paresis) - 0(Normal) 3. Visual Field Loss - 0(No visual loss) 4. Facial Palsy - 0(Normal) 5a. Left Arm: Motor (10-second hold) - 0(No drift) 5b. Right Arm: Motor (10-second hold) - 0(No drift) 6a. Left Leg: Motor (5-second hold - always test supine) - 0(No drift) 6b. Right Leg: Motor (5-second hold - always test supine) - 0(No drift) 7. Limb Ataxia (finger/nose \T\ heel/abraham - test with eyes open) - 0(Absent) 8. Sensory Loss (pinprick arms/legs/face) - 0(Normal) 9. Best Language: Aphasia (description/naming/reading) - 0(No aphasia) Initials: sp4 Signatures: Dispatcher [employer] Hyacinth Etienne RN RN ss Jess Nickerson, RN RN kd3 Renea Parham, RN RN vc1 Esteban Dallas MD MD sp4 Stoney Schultz RN RN tm6 Corrections: (The following items were deleted from the chart) 08/11 20:46 20:46 C-REACTIVE PROTEIN+C.LAB.BRZ ordered. EDMS EDMS 20:46 20:46 Influenza Screen (A \T\ B)+BA.LAB.BRZ ordered. EDMS EDMS 20:46 20:46 SARS-COV-2 Antigen Rapid+I.LAB.BRZ ordered. EDMS EDMS 20:46 20:46 BLOOD CULTURE*+BA.LAB.BRZ ordered. EDMS EDMS 20:46 20:46 Urinalysis+U.LAB.BRZ ordered. EDMS EDMS 20:55 20:55 Chest Abdomen Pelvis Wo Con+CT.RAD.BRZ ordered. EDMS EDMS 21:04 21:04 LACTATE+C.LAB.BRZ ordered. EDMS EDMS 08/12 01:12 00:24 Telemetry/MedSurg (Inpatient) sp4 vc1 01:12 00:24 sp4 vc1 07:08 01:12 [facility] ER HOLD vc1 ss 07:08 01:12 ERHOLD- vc1 ss
--- NOTE | 2024-08-12 00:25 | ER ---
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 He is very loopy and confused, seeing and hearing things that are not there. He had a heart cath done on . They say he needs to return for 5 stents. He also has Pneumonia and feels like he is feverish. Coronavirus screen: Client denies travel out of the [place] in the last 14 days. At this time, the client does not indicate any symptoms associated with coronavirus-19. The client reports previous COVID testing was negative. Date of collection: August 06, 2024. Ebola Screen: Patient negative for fever greater than or equal to 101.5 degrees Fahrenheit, and additional compatible Ebola Virus Disease symptoms Patient denies exposure to infectious person. Patient denies travel to an Ebola-affected area in the 21 days before illness onset. No symptoms or risks identified at this time. Initial Sepsis Screen: Does the patient meet any 2 criteria? Altered Mental Status. No. Patient's initial sepsis screen is negative. Does the patient have a suspected source of infection? No. Patient's initial sepsis screen is negative. Risk Assessment: Do you want to hurt yourself or someone else? Patient reports no desire to harm self or others. Onset of symptoms is unknown. Activity prior to arrival: confused. 20:44 Method Of Arrival: Wheelchair vc1 20:44 Acuity: CARMEN 3 vc1 Triage Assessment: 20:54 General: Appears in no apparent distress. uncomfortable, unkempt, Behavior is vc1 cooperative, flat. Pain: Complains of pain in back and chest. EENT: No deficits noted. No signs and/or symptoms were reported regarding the EENT system. Neuro: Level of Consciousness is awake, alert, obeys commands, Oriented to person, place, situation. Cardiovascular: Capillary refill < 3 seconds Patient's skin is warm and dry. Respiratory: Airway is patent Respiratory effort is even, unlabored, Respiratory pattern is regular, symmetrical. GI: Abdomen is non-distended. : No deficits noted. No signs and/or symptoms were reported regarding the genitourinary system. Derm: Wound noted right arm and left inner thigh. Musculoskeletal: Circulation, motion, and sensation intact. Historical: - Allergies: 20:52 No Known Allergies; vc1 - PMHx: 20:52 Diabetes mellitus; Hypertensive disorder; Hypercholesterolemia; vc1 - PSHx: 20:52 Heart Cath (August 06, 2024); vc1 - Immunization history:: Client reports having NOT received the Covid vaccine. - Infectious Disease History:: Denies. - Social history:: Smoking status: Patient/guardian denies using tobacco, but has a distant history of tobacco abuse. - Family history:: not pertinent. Screenin:53 [facility] ED Fall Risk Assessment (Adult) History of falling in the last 3 months, vc1 including since admission No falls in past 3 months (0 pts) Confusion or Disorientation Yes (5 pts) Intoxicated or Sedated No (0 pts) Impaired Gait Yes (1 pt) Mobility Assist Device Used Yes (1 pt) Altered Elimination No (0 pt) Score/Fall Risk Level 3 or more points = High Risk Oriented to surroundings, Maintained a safe environment, Educated pt \T\ family on fall prevention, incl call for assistance when getting out of bed. Abuse screen: Denies threats or abuse. Nutritional screening: No deficits noted. Tuberculosis screening: No symptoms or risk factors identified. Assessment: 21:12 General: Spoke with Adolescent Counselor, Demi Paez RN at [facility] and request vc1 discharge summary and Heart cath results. . 21:39 General: Appears in no apparent distress. Behavior is calm, cooperative. Pain: tm6 Complains of pain in back Pain does not radiate. Pain began unknown. Neuro: Level of Consciousness is awake, alert, obeys commands, Oriented to person. Cardiovascular: Patient's skin is warm and dry. Respiratory: Airway is patent Respiratory effort is even, unlabored, Respiratory pattern is regular, symmetrical. GI: No signs and/or symptoms were reported involving the gastrointestinal system. Abdomen is round non-distended. : No signs and/or symptoms were reported regarding the genitourinary system. EENT: No signs and/or symptoms were reported regarding the EENT system. Derm: No signs and/or symptoms reported regarding the dermatologic system. Musculoskeletal: Reports pain in back. 22:19 General: Appears in no apparent distress. Behavior is calm, cooperative. General: kd3 Patient reminded to attempt to provide a urine sample to complete his work up. Patient's is currently at the bedside to assist with urine sample collection. . Neuro: Level of Consciousness is awake, alert, obeys commands, Oriented to person, place. Cardiovascular: Patient's skin is warm and dry. Respiratory: Airway is patent Trachea midline Respiratory effort is even, unlabored, Respiratory pattern is regular, symmetrical. 23:25 General: Patient complains of headache. Temp is 99.9. Patient administered 1000 mg of kd3 Tylenol PO. Vancomycin administered. Patient has no further requests at this time. . Vital Signs: 20:44 BP 163 / 71; Pulse 79; Resp 14; Temp 99.6; Pulse Ox 98% ; vc1 21:15 Weight 80.5 kg; Height 5 ft. 8 in. ; vc1 22:20 BP 153 / 81; Pulse 75; Resp 19; Pulse Ox 98% on R/A; kd3 23:25 BP 150 / 89; Pulse 71; Resp 16; Temp 99.9(O); Pulse Ox 100% on R/A; kd3 08/12 01:46 BP 156 / 86; Pulse 73; Resp 19; Pulse Ox 96% on R/A; kd3 05:15 BP 157 / 97; Pulse 75; Resp 16; Pulse Ox 99% ; kd3 08/11 21:15 Body Mass Index 26.98 (80.50 kg, 172.72 cm) vc1 Micaela Coma Score: 08/11 21:44 Eye Response: spontaneous(4). Motor Response: obeys commands(6). Verbal Response: sp4 oriented(5). Total: 15. NIH Stroke Scale Scores: 21:44 NIHSS Score: 0 sp4 ED Course: 20:10 Patient arrived in ED. jj6 20:12 Esteban Dallas MD is Attending Physician. sp4 20:51 Triage completed. vc1 20:52 EKG done, by ED staff, reviewed by Esteban Dallas MD. oe 20:53 Arm band placed on left wrist. vc1 21:05 XRAY Chest (1 view) In Process Unspecified. EDMS 21:20 Inserted saline lock: 18 gauge in left forearm, using aseptic technique. Blood tm6 collected. Flushed with 10 mL NS. Patient maintains SpO2 saturation greater than 95% on room air. 21:21 Stoney Schultz, RN is Primary Nurse. tm6 21:39 Patient has correct armband on for positive identification. Bed in low position. Call tm6 light in reach. Side rails up X2. Provided Education on: use of call donahue. Client placed on continuous cardiac and pulse oximetry monitoring. NIBP monitoring applied. copper plater on. Pulse ox on. NIBP on. Door closed. Noise minimized. Warm blanket given. Pillow given. 21:46 CT Chest Abdomen Pelvis W/O Contrast In Process Unspecified. EDMS 21:46 CT Head Brain wo Cont In Process Unspecified. EDMS 22:14 Jess Nickerson, RN is Primary Nurse. kd3 22:33 Urine collected: clean catch specimen. kd3 08/12 00:24 Salazar Fernando MD is Hospitalizing Provider. sp4 07:39 No provider procedures requiring assistance completed. Patient admitted, IV remains in mb9 place. Administered Medications: 08/11 21:38 Drug: Piperacillin-Tazobactam IVPB 3.375 grams IVPB once over 60 mins; (mix in NS 100 tm6 mL) Route: IVPB; Infused Over: 60 mins; Site: left forearm; 23:08 Follow up: IV Status: Completed infusion kd3 21:38 Drug: NS 0.9% IV 1000 ml IV at 125 ml/hr continuous Route: IV; Rate: 125 ml/hr; Site: tm6 left forearm; 21:39 Drug: morphine IVP or IV 4 mg IVP once over 4 mins Route: IVP; Infused Over: 4 mins; tm6 Site: left forearm; 21:39 Drug: Ondansetron IVP 4 mg IVP once; over 2 minutes Route: IVP; Site: left forearm; tm6 23:08 Drug: vancoMYCIN IVPB 20 mg/kg IVPB once; once over 2 hours; not to exceed 2 grams; kd3 (mix in 250 to 500mL NS) Route: IVPB; Site: left forearm; 23:13 Drug: Acetaminophen PO 1000 mg PO once Route: PO; kd3 08/12 02:31 Drug: morphine IVP or IV 2 mg IVP once over 4 mins Route: IVP; Infused Over: 4 mins; kd3 Site: left antecubital; 05:14 Drug: HYDROcodone-acetaminophen PO 5 mg-325 mg 1 tabs PO once Route: PO; kd3 Medication: 08/11 20:54 VIS not applicable for this client. vc1 Outcome: 08/12 00:24 Decision to Hospitalize by Provider. sp4 07:39 Admitted to Tele mb9 07:39 Condition: stable 07:39 Instructed on the need for admit, 07:53 Patient left the ED. mb9 NIH Stroke Scale - NIH Stroke Score Date: 08/11/2024 Time: 21:44 Total Score = 0 10. Dysarthria (speech clarity - read or repeat words) - 0(Normal) 11. Extinction and Inattention (visual/tactile/auditory/spatial/personal) - 0(No abnormality) 1a. Level of Consciousness (LOC) - 0(Alert) 1b. Level of Consciousness (LOC) (Month \T\ Age) - 0(Both) 1c. LOC Commands (Open \T\ Closes Eyes/Roper Operator) - 0(Both) 2. Best Gaze (Lateral Gaze Paresis) - 0(Normal) 3. Visual Field Loss - 0(No visual loss) 4. Facial Palsy - 0(Normal) 5a. Left Arm: Motor (10-second hold) - 0(No drift) 5b. Right Arm: Motor (10-second hold) - 0(No drift) 6a. Left Leg: Motor (5-second hold - always test supine) - 0(No drift) 6b. Right Leg: Motor (5-second hold - always test supine) - 0(No drift) 7. Limb Ataxia (finger/nose \T\ heel/abraham - test with eyes open) - 0(Absent) 8. Sensory Loss (pinprick arms/legs/face) - 0(Normal) 9. Best Language: Aphasia (description/naming/reading) - 0(No aphasia) Initials: sp4 Signatures: Dispatcher [employer] EDMS Arjun Rosenthal Jennifer jj6 Jess Nickersno RN RN kd3 Renea Parham RN RN vc1 Theresa Frausto RN RN mb9 Esteban Dallas MD MD sp4 Stoney Schultz, ALESSIO RN tm6
[2024-08-12] MEDS ORDERED: MORPHINE 2 MG/ML SYR ONE (02:21)
--- NOTE | 2024-08-12 04:51 | P.HP ---
Certification for Inpatient Patient admitted to: Inpatient With expected LOS: >2 Midnights Practitioner: I am a practitioner with admitting privileges, knowledge of patient current condition, hospital course, and medical plan of care. Services: Services provided to patient in accordance with Admission requirements found in Title 42 Section 412.3 of the Code of Federal Regulations Patient History Date of Service: 08/12/24 Reason for admission: AMS, SOB History of Present Illness: 59 yrs old Male with past medical history of hypertension, hyperlipidemia, diabetes came to ER with chest tightness and back pain. He was [facility] where he was admitted for influenza A, vomiting, uncontrolled diabetes, UTI, renal calculus on the right, pyelonephritis, elevated troponin, acute kidney injury, uncontrolled hypertension, bronchopneumonia, NSTEMI, hiccups, hyponatremia, chest pain. Also apparently had left heart cath by Dr. Hooper with cardiology. He presented to the [facility] with posterior chest pain back pain and hiccups. CT chest with PE protocol was negative for PE. CT discovered multifocal patchy peribronchovascular groundglass opacities. Findings consistent with bronchopneumonia and infectious inflammatory etiology. Stress test was performed on the and a left heart cath was performed with cardiology reporting that patient needs PCI to LAD for severe diffuse LAD disease with occluded apical segment. Patient was assessed in the ER and is admitted for further management . - Past Medical/Surgical History Past Medical History: Reviewed- Non-Contributory Past Surgical History: Reviewed- Non-Contributory - Family History Family History: Reviewed- Non-Contributory - Social History Smoking Status: Former smoker Review of Systems 10-point ROS is otherwise unremarkable Physical Examination - Vital Signs Temperature: 97.8 F Blood Pressure: 152/78 Pulse: 76 Respirations: 18 Pulse Ox (%): 95 - Physical Exam General: Alert, Oriented x2, Moderate distress HEENT: Atraumatic, Normocephalic Neck: Supple, No Thyromegaly Respiratory: Clear to auscultation bilaterally, Normal air movement Cardiovascular: Regular rate/rhythm, Normal S1 S2 Capillary refill: <2 Seconds Gastrointestinal: Soft and benign, W/out hepatosplenomegaly Musculoskeletal: No clubbing, No swelling Integumentary: No rashes, No breakdown Neurological: Normal speech, Normal strength at 5/5 x4 extr Lymphatics: No axilla or inguinal lymphadenopathy - Studies Laboratory Data (last 24 hrs) 08/11/24 08/11/24 08/11/24 21:15 21:15 21:15 WBC 9.50 Hgb 8.5 L Hct 24.0 L Plt Count 314 PT 14.5 H INR 1.30 Sodium Potassium BUN Creatinine Glucose Magnesium Total Bilirubin AST ALT Alkaline Phosphatase Lipase 17 08/11/24 21:15 WBC Hgb Hct Plt Count PT INR Sodium 130 L Potassium 4.2 BUN 25 H Creatinine 1.18 Glucose 151 H Magnesium 2.3 Total Bilirubin 0.4 AST 19 ALT 23 Alkaline Phosphatase 111 Lipase Microbiology Data (last 24 hrs): 08/11/24 21:12 Nasopharnyx Influenza Type A Antigen Screen - Final 08/11/24 21:12 Nasopharnyx Influenza Type B Antigen Screen - Final Assessment and Plan - Plan Unstable angina Pain control Monitor closely on telemetry Will trend cardiac enzymes Patient had a recent cath Extensive LAD disease May need high risk PCI Aspirin statin Cardiology consulted Pneumonia Started on IV antibiotic Oxygen support Wean off oxygen support Hypertension Antihypertensives titrated Continue home medications and titrate as needed Hyperlipidemia Continue statin Electrolytes monitor and replace accordingly Diabetes Insulin sliding scale Accu-Chek before every meal and at bedtime Anemia of chronic disease Monitor H&H closely No overt bleeding at this time GI/DVT prophylaxis Advanced directive full code Discharge Plan: Home Plan to discharge in: 48 Hours - Advance Directives Does patient have a Living Will: No Does patient have a Durable POA for Healthcare: No - Code Status/Comfort Care Code Status: Full Code Time Spent Managing Pts Care (In Minutes): 48
[2024-08-12] MEDS ORDERED: ONDANSETRON 4 MG/2 ML VIAL IV PRN (05:00)
[2024-08-12] MEDS ORDERED: ACETAMINOPHEN 325 MG TABLET PO PRN (05:00)
[2024-08-12] MEDS ORDERED: ALBUTEROL 2.5 MG/3 ML NEB SOL NEB PRN (05:00)
[2024-08-12] MEDS: NA CHLORIDE 0.9% 1,000 ML IV SCH (05:00)
[2024-08-12] MEDS: VANCOMYCIN 1 GM in NA CHLORIDE 0.9% 250 ML IVPB SCH (05:06)
[2024-08-12] MEDS ORDERED: HYDROCODONE/APAP 5/325 MG TAB ONE (05:09)
[2024-08-12 06:36] VITALS: BMI 27.3
[2024-08-12] MEDS ORDERED: NA CHLORIDE 0.9% 1,000 ML ONE (06:41)
[2024-08-12] MEDS: MORPHINE 2 MG/ML SYR IV PRN (08:28)
[2024-08-12] MEDS: PIPER TAZO 3.375 GM in NA CHLORIDE 0.9% 100 ML IV SCH (08:29)
[2024-08-12] MEDS: ASPIRIN EC 81 MG TAB PO SCH (08:29)
[2024-08-12] MEDS: ENOXAPARIN 40 MG/0.4 ML SQ SCH (08:29)
[2024-08-12] MEDS: MORPHINE 2 MG/ML SYR IV ONE (10:04)
[2024-08-12] MEDS: LABETALOL 20 MG/4ML SYRINGE IV PRN (12:38)
[2024-08-12] MEDS: HYDROCODONE/APAP 5/325 MG TAB PO PRN (12:38)
[2024-08-12] MEDS: CEFTRIAXONE 1,000 MG in NA CHLORIDE 0.9% 50 ML IVPB SCH (12:39)
[2024-08-12] MEDS: AZITHROMYCIN IV 500 MG in NA CHLORIDE 0.9% 250 ML IVPB SCH (12:39)
--- NOTE | 2024-08-12 16:18 | P.CNS ---
Date of Consult: 08/12/24 Chief Complaint: AMS, SOB History of Present Illness: Patient with PMH of CAD, HTN, presented with abdominal pain, all over abdomen, also report lower epigastric pain, denies left sided chest pain, no SOB, no cough but report fever, patient was recently discharged from [facility] where he was admitted for PNA/Flu, had mild troponin leak, abnormal stress test followed by coronary angiogram that shown severe calcified LAD and diagonal disease and plan was for staged PCI in medical center. Allergies No Known Allergies Allergy (Verified 08/12/24 09:44) Home medications list reviewed: Yes Home Medications: Amlodipine [Norvasc] 5 mg PO DAILY 08/12/24 Atorvastatin Calcium [Lipitor] 40 mg PO BEDTIME 08/12/24 Carvedilol [Coreg] 25 mg PO BID 08/12/24 Losartan Potassium [Cozaar] 25 mg PO DAILY 08/12/24 Metformin HCl [Glucophage] 1,000 mg PO DAILY WITH BREAKFAST 08/12/24 Pantoprazole [Protonix Tab*] 1 tab PO DAILY 08/12/24 - Social History Smoking Status: Former smoker Review of Systems 10-point ROS is otherwise unremarkable Physical Examination Temp Pulse Resp BP Pulse Ox 97 F 86 18 180/92 H 100 08/12/24 12:00 08/12/24 12:38 08/12/24 15:16 08/12/24 13:40 08/12/24 15:16 General: Alert, In no apparent distress HEENT: Atraumatic, PERRLA, Mucous membr. moist/pink, EOMI, Sclerae nonicteric Neck: Supple, 2+ carotid pulse no bruit, No LAD, Without JVD or thyroid abnormality Respiratory: Clear to auscultation bilaterally, Normal air movement Cardiovascular: Regular rate/rhythm, Normal S1 S2 Gastrointestinal: Normal bowel sounds, No tenderness Musculoskeletal: No tenderness Integumentary: No rashes Neurological: Normal gait, Normal speech, Normal tone, Normal affect Lymphatics: No axilla or inguinal lymphadenopathy Laboratory Data (last 24 hrs) 08/11/24 08/11/24 08/11/24 21:15 21:15 21:15 WBC 9.50 Hgb 8.5 L Hct 24.0 L Plt Count 314 PT 14.5 H INR 1.30 Sodium Potassium BUN Creatinine Glucose Magnesium Total Bilirubin AST ALT Alkaline Phosphatase Lipase 17 08/11/24 21:15 WBC Hgb Hct Plt Count PT INR Sodium 130 L Potassium 4.2 BUN 25 H Creatinine 1.18 Glucose 151 H Magnesium 2.3 Total Bilirubin 0.4 AST 19 ALT 23 Alkaline Phosphatase 111 Lipase - Problems (1) CAD (coronary artery disease) Current Visit: Yes Status: Acute Plan: Patient had a coronary angiogram done by Dr. 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 Hooper but again she did not want this rrt and wanted her father to be transferred to [facility]. Continue ASA 81 mg daily
[2024-08-12] MEDS: AMLODIPINE 10 MG TAB PO SCH (16:55)
[2024-08-12] MEDS ORDERED: VANCOMYCIN 1.5 GM in NA CHLORIDE 0.9% 500 ML IVPB SCH (17:00)
--- NOTE | 2024-08-12 18:34 | P.PN ---
Date of Service: 08/12/24 Patient seen and examined. Patient complaining of back pain Blood pressure severely elevated. Left heart catheterization done at [facility] yesterday reviewed and noted multiple vessel disease including the LAD with calcifications. Dr. Augustin recommended left heart catheterization in a tertiary center. I reached out to Dr. Hooper who stated transfer to a tertiary center is not emergent and the procedure can be done as an outpatient. Labetalol ordered for BP spikes Patient BP medications resumed Continue antibiotics for bronchopneumonia Family request for inpatient management of patient's LAD disease. Plan is to initiate transfer to [place]. Continue DAPT Heparin anticoagulation.
[2024-08-12] MEDS: HEPARIN/D5W 25,000 UNIT/500 ML BAG IV SCH (19:10)
[2024-08-12] MEDS: ATORVASTATIN 40 MG TAB PO SCH (20:58)
[2024-08-12] MEDS: carvediloL 25 MG TAB PO SCH (20:58)
[2024-08-12] MEDS ORDERED: ATORVASTATIN 40 MG TAB PO SCH (21:00)
[2024-08-13 06:28] LABS: Absolute Eosinophils 0.1 K/uL (0-0.5); Absolute Lymphocytes (CBC) 0.6 K/uL (0.7-4.9); Absolute Monocytes 0.7 K/uL (0.1-1.3); Absolute Neutrophil 7.2 K/uL (1.8-8.0); Basophils % 0.2 % (0-1.3); Eosinophils % 1.3 % (0-4.4); Hematocrit 25.6 % (39.6-49.0); Hemoglobin 8.8 g/dL (13.6-17.9); MCH 30.3 pg (27.0-35.0); MCHC 34.5 g/dL (32.0-36.0); MPV 7.5 fL (7.6-11.3); Monocytes % 7.6 % (3.3-12.3); Neutrophils % 83.9 % (41.7-73.7); Platelets 307 thou/uL (152-406); RBC Red Blood Cell Count 2.91 M/uL (4.33-5.43); Red Cell Distribution Width 14.1 % (12.1-15.2)
[2024-08-13] MEDS: PANTOPRAZOLE 40MG TABLET PO SCH (06:28)
[2024-08-13 07:18] LABS: Albumin/Globulin Ratio 0.4 (1.1-1.8); Anion Gap 9.8 mEq/L (5.0-15.0); Bilirubin Total 0.4 mg/dL (0.2-1.0); Globulin 5.4 g/dL (2.3-3.5); Potassium 3.8 mEq/L (3.5-5.1); Protein, Total 7.4 g/dL (6.4-8.2)
[2024-08-13] MEDS ORDERED: HOME MED 1 EA UNK (Losartan Potassium [Cozaar] 25 MG Tablet) PO SCH (09:00)
[2024-08-13] MEDS: LOSARTAN POTASSIUM 50 MG TABLET PO SCH (09:21)
--- NOTE | 2024-08-13 11:54 | EKG ---
Test Date: 2024-08-11 Test Time: 20:42:50 Teacher Of Gifted Students: KATHY MEASUREMENT RESULTS: Intervals: Rate: 79 ME: 152 QRSD: 86 QT: 380 QTc: 435 [place]: P: 48 ME: 152 QRS: -9 T: 19 INTERPRETIVE STATEMENTS: Normal sinus rhythm Possible Left atrial enlargement Left ventricular hypertrophy Abnormal ECG No previous ECG available for comparison Electronically Signed On 08-13-24 11:51:51 CDT by Bryce Augustin
[2024-08-13] MEDS: VANCOMYCIN 1.5 GM in NA CHLORIDE 0.9% 500 ML IVPB SCH (13:26)
--- NOTE | 2024-08-13 18:31 | P.PN ---
Subjective Date of Service: 08/13/24 Chief Complaint: AMS, SOB Patient stated his back pain is better today. No recorded fever. Patient denies any nausea or vomiting. reports patient sometimes hallucinate during the night. Physical Examination - Vital Signs Temperature: 97.4 F Blood Pressure: 168/81 Pulse: 76 Respirations: 24 Pulse Ox (%): 100 - Studies Microbiology Data (last 24 hrs): 08/11/24 21:15 Blood - Blood Blood Culture Gram Stain - Final 08/11/24 21:15 Blood - Blood Gram Stain - Final 08/11/24 21:25 Blood - Blood Blood Culture Gram Stain - Final 08/11/24 21:25 Blood - Blood Gram Stain - Final Assessment And Plan - Plan Physical examination General: Alert and oriented x3, NAD, HEENT: Conjunctiva not pale, anicteric sclera Neck: Supple, no elevated JVD Heart: Heart sounds 1 and 2 normal, regular rhythm, normal rate, no pedal edema Lungs: Clear to auscultation bilaterally, adequate breath sounds bilaterally, no rhonchi or crackles. Abdomen: Soft, nondistended, nontender, normal bowel sounds. Extremities: No tenderness, no deformity Skin: Normal skin turgor, no rash, no nodules or ulcers. Neuro: No focal motor deficit. Normal speech. Psychiatry: Normal mood, no agitation. Assessment and plan Chest pain Coronary artery disease Hyperlipidemia Likely atypical Cardiac catheterization shows extensive LAD disease Patient evaluated by cardiology Dr. Augustin patient LAD disease considered high risk needing PCI at a tertiary center. 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 Family concerned about discharge without any intervention. Transfer to [facility] initiated but transfer was declined. Transfer initiated to [facility] and [facility]. Continue aspirin, continue statin Heparin drip. Malignant hypertension Labetalol ordered for BP spikes Patient home BP meds resumed Bronchopneumonia Gram positive bacteremia 4 blood culture bottles growing coagulase positive staph Antibiotics changed to vancomycin and Rocephin Patient may require outpatient IV antibiotics. PICC line once bacteremia is cleared as evidenced by repeat blood cultures. Diabetes mellitus type II Insulin sliding scale Accu-Chek before every meal and at bedtime Continue to hold metformin Anemia of chronic disease Monitor H&H closely No overt bleeding at this time Transfuse as needed for hemoglobin less than 8. DVT prophylaxis: On heparin drip Advanced directive full code
[2024-08-14 06:55] LABS: Absolute Eosinophils 0.1 K/uL (0-0.5); Absolute Lymphocytes (CBC) 0.8 K/uL (0.7-4.9); Absolute Monocytes 0.7 K/uL (0.1-1.3); Basophils % 0.3 % (0-1.3); Eosinophils % 1.3 % (0-4.4); Hematocrit 26.7 % (39.6-49.0); Hemoglobin 9.2 g/dL (13.6-17.9); Lymphocytes % 8.1 % (15.3-44.8); MCH 30.4 pg (27.0-35.0); MCHC 34.6 g/dL (32.0-36.0); MCV 87.8 fL (80-100); MPV 7.8 fL (7.6-11.3); Monocytes % 6.9 % (3.3-12.3); Neutrophils % 83.4 % (41.7-73.7); Nucleated Red Blood Cells % 0.1 % (0-0); Platelets 341 thou/uL (152-406); RBC Red Blood Cell Count 3.04 M/uL (4.33-5.43); Red Cell Distribution Width 14.4 % (12.1-15.2)
[2024-08-14 07:10] LABS: Albumin 2.2 g/dL (3.4-5.0); Albumin/Globulin Ratio 0.4 (1.1-1.8); Anion Gap 10.8 mEq/L (5.0-15.0); Bilirubin Total 0.4 mg/dL (0.2-1.0); Globulin 5.3 g/dL (2.3-3.5); Potassium 3.8 mEq/L (3.5-5.1); Protein, Total 7.5 g/dL (6.4-8.2)
--- NOTE | 2024-08-14 15:51 | RAD REPORT ---
EXAM;Spine Lumbar W/Wo Cont CLINICAL HISTORY: Back pain/radiculopathy TECHNIQUE: Axial, sagittal and coronal magnetic resonance imaging of lumbar spine obtained. 19 cc Mag nevist administered intravenously. FINDINGS : For purposes of labeling I am assuming there are 5 lumbar vertebra.This should be correlated with xra y if clinically indicated. L1-2, L2-3, L3-4 and L4-5 demonstrate no significant abnormality. Small central disc herniation L5-S1. Facet hypertrophy is present. Mild narrowing of the neural yanna salima bilaterally. Area of increased signal T1 weighted sequences L4 vertebral body probably a hemangioma. No significant abnormal enhancement is displayed. IMPRESSION: Small central disc herniation L5-S1
--- NOTE | 2024-08-14 17:00 | RAD REPORT ---
EXAM:Thoracic Spine W/Wo Contr CLINICAL HISTORY: Back pain. Radiculopathy TECHNIQUE: Axial, sagittal and coronal magnetic resonance imaging thoracic spine obtained. 19 cc M agnevist administered intravenously. FINDINGS: There is a vague 7 mm area of enhancement posterior spinal canal at the level of the superior aspect T8. No additional abnormal enhancement. No significant disc bulge/herniation. No central/foraminal stenosis. No significant abnormality within the bones. The disc spaces are normal size and signal IMPRESSION: Vague 7 mm area of enhancement posterior spinal canal the level of the superior aspect T8. It is unce rtain if this represents a true abnormality such as infection or volume averaging of normal vascular structures. It is recommended that the patient have an MRI with block axial images of this a rafa in addition to high-resolution sagittal sequences to help determine if this truly represents pathology.
--- NOTE | 2024-08-14 17:58 | P.PN ---
Subjective Date of Service: 08/14/24 Chief Complaint: AMS, SOB Patient stated his back pain is better today. Patient reported he completed 6 weeks of IV antibiotics from May to June 2024. Patient reported his back pain has been present for about a couple of weeks. No recorded fever. He denies any limb weakness. Physical Examination - Vital Signs Temperature: 97.8 F Blood Pressure: 161/78 Pulse: 66 Respirations: 16 Pulse Ox (%): 99 Assessment And Plan - Plan Physical examination General: Alert and oriented x3, NAD, HEENT: Conjunctiva not pale, anicteric sclera Neck: Supple, no elevated JVD Heart: Heart sounds 1 and 2 normal, regular rhythm, normal rate, no pedal edema Lungs: Clear to auscultation bilaterally, adequate breath sounds bilaterally, no rhonchi or crackles. Abdomen: Soft, nondistended, nontender, normal bowel sounds. Extremities: No tenderness, no deformity Skin: Normal skin turgor, no rash, no nodules or ulcers. Neuro: No focal motor deficit. Normal speech. Psychiatry: Normal mood, no agitation. Assessment and plan Chest pain Coronary artery disease Hyperlipidemia Likely atypical Cardiac catheterization 08/11 showed extensive LAD disease Patient evaluated by cardiology Dr. Aguustin patient LAD disease considered high risk needing PCI at a tertiary center. Patient with data management specialist Dr. Hooper recommended transfer to a tertiary center is not emergent and the procedure can be done as an outpatient. Family was concerned about discharge without any intervention. Transfer to [facility] initiated but transfer was declined. Transfer initiated to [facility], waiting for bed availability Continue aspirin, continue statin Continue heparin drip. Malignant hypertension Labetalol ordered for BP spikes Patient home BP meds resumed Bronchopneumonia Gram positive bacteremia 4 blood culture bottles growing coagulase positive staph. Organism identity and antibiotic sensitivities pending. Continue vancomycin and Rocephin Patient may require outpatient IV antibiotics. PICC line to be placed once bacteremia is cleared as evidenced by repeat blood cultures. Back pain Subacute back pain Back pain and bacteremia concerning for vertebral osteomyelitis/epidural abscess. MRI of the thoracolumbar spine with and without contrast suggest an area of enhancement at T8. Repeat MRI with block axial images in addition to high-resolution sagittal sequences is recommended. Aggressive IV antibiotics. Diabetes mellitus type II Insulin sliding scale Accu-Chek before every meal and at bedtime Continue to hold metformin Anemia of chronic disease Monitor H&H closely No overt bleeding at this time Transfuse as needed for hemoglobin less than 8. DVT prophylaxis: On heparin drip Advanced directive full code
[2024-08-15 12:05] VITALS: O2SAT 96
--- NOTE | 2024-08-15 14:49 | P.PN ---
Subjective Date of Service: 08/15/24 Chief Complaint: AMS, SOB Patient stated his back pain is much better today No recorded fever. He denies any limb weakness, he denies any urine or stool incontinence. He denies any chest pain today. Physical Examination - Vital Signs Temperature: 98.1 F Blood Pressure: 175/90 Pulse: 64 Respirations: 18 Pulse Ox (%): 99 - Studies Microbiology Data (last 24 hrs): 08/11/24 21:25 Blood - Blood Aerobic Blood Culture - Final Meth Resistant Staph Aureus 08/11/24 21:25 Blood - Blood Blood Culture Gram Stain - Final 08/11/24 21:25 Blood - Blood Anaerobic Blood Culture - Final Meth Resistant Staph Aureus 08/11/24 21:25 Blood - Blood Gram Stain - Final 08/11/24 21:15 Blood - Blood Aerobic Blood Culture - Final Meth Resistant Staph Aureus 08/11/24 21:15 Blood - Blood Blood Culture Gram Stain - Final 08/11/24 21:15 Blood - Blood Anaerobic Blood Culture - Final Meth Resistant Staph Aureus 08/11/24 21:15 Blood - Blood Gram Stain - Final Assessment And Plan - Plan Physical examination General: Alert and oriented x3, NAD, HEENT: Conjunctiva not pale, anicteric sclera Neck: Supple, no elevated JVD Heart: Heart sounds 1 and 2 normal, regular rhythm, normal rate, no pedal edema Lungs: Clear to auscultation bilaterally, adequate breath sounds bilaterally, no rhonchi or crackles. Abdomen: Soft, nondistended, nontender, normal bowel sounds. Extremities: No tenderness, no deformity Back: No tenderness elicited on palpation today. Skin: Normal skin turgor, no rash, no nodules or ulcers. Neuro: No focal motor deficit. Normal speech. Psychiatry: Normal mood, no agitation. Assessment and plan Chest pain Coronary artery disease Hyperlipidemia Likely atypical Cardiac catheterization 08/11 showed extensive LAD disease Patient evaluated by cardiology Dr. Augustin, patient LAD disease considered high risk needing PCI at a tertiary center. Patient with adhesive primer Dr. Hooper recommended follow-up with him in the [place] as outpatient. Family was concerned about discharge without any intervention. Transfer to [facility] initiated but transfer was declined. Transfer initiated to [facility], patient accepted for transfer and waiting for bed availability Continue aspirin, continue statin Continue heparin drip. Malignant hypertension Labetalol ordered for BP spikes Patient home BP meds resumed MRSA bronchopneumonia MRSA bacteremia 4 blood culture bottles growing MRSA. Continue IV vancomycin. Discontinue Rocephin. outpatient IV antibiotics. Patient may need to come at least 6 weeks of IV vancomycin given possible vertebral osteomyelitis. PICC line to be placed once bacteremia is cleared as evidenced by repeat blood cultures. Back pain Subacute back pain Back pain and bacteremia concerning for vertebral osteomyelitis/epidural abscess. MRI of the thoracolumbar spine with and without contrast suggest an area of enhancement at T8. Repeat MRI with block axial images in addition to high-resolution sagittal sequences is recommended. Aggressive IV antibiotics. Diabetes mellitus type II Insulin sliding scale Accu-Chek before every meal and at bedtime Continue to hold metformin Anemia of chronic disease Hemoglobin has been stable. Transfuse as needed for hemoglobin less than 8. DVT prophylaxis: On heparin drip Advanced directive full code
[2024-08-15 17:54] VITALS: BP 171/91; TEMP 97.4
--- NOTE | 2024-08-15 18:24 | P.DS ---
Admission Date: 08/12/24 Discharge Date: 08/15/24 Disposition: TRANSFER TO [facility] Reason for Admission: AMS, SOB Brief History of Present Illness: 59 yrs old Male with past medical history of hypertension, hyperlipidemia, diabetes came to ER with chest tightness and back pain. He was discharged from [facility] today where he was admitted for influenza A, vomiting, uncontrolled diabetes, UTI, renal calculus on the right, pyelonephritis, elevated troponin, acute kidney injury, uncontrolled hypertension, bronchopneumonia, NSTEMI, hiccups, hyponatremia, chest pain. Also apparently had left heart cath by Dr. Hooper with cardiology. He presented to the [facility] with posterior chest pain back pain and hiccups. CT chest with PE protocol was negative for PE. CT discovered multifocal patchy per ibronchovascular groundglass opacities. Findings consistent with bronchopneumonia and infectious inflammatory etiology. Stress test was performed on the and a left heart cath was performed with cardiology reporting that patient needs PCI to LAD for severe diffuse LAD disease with occluded apical segment. Patient was assessed in the ER and is admitted for further management . Hospital Course: Patient was admitted to the medical floor and the following medical problems addressed: Chest pain Coronary artery disease Hyperlipidemia Likely atypical Cardiac catheterization 08/11 showed extensive LAD disease Patient evaluated by cardiology Dr. Augustin, patient LAD disease considered high risk needing PCI at a tertiary center. 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 Hooper recommended follow-up with him in the [place] as outpatient. Family was concerned about discharge without any intervention. Transfer to [facility] initiated but transfer was declined. Transfer initiated to [facility], patient accepted for transfer and waiting for bed availability Continue aspirin, continue statin Continue heparin drip. Malignant hypertension Labetalol ordered for BP spikes Patient home BP meds resumed MRSA bronchopneumonia MRSA bacteremia 4 blood culture bottles growing MRSA. Continue IV vancomycin. Discontinue Rocephin. outpatient IV antibiotics. Patient may need to come at least 6 weeks of IV vancomycin given possible vertebral osteomyelitis. PICC line to be placed once bacteremia is cleared as evidenced by repeat blood cultures. Back pain Subacute back pain Back pain and bacteremia concerning for vertebral osteomyelitis/epidural abscess. MRI of the thoracolumbar spine with and without contrast suggest an area of enhancement at T8. Repeat MRI with block axial images in addition to high-resolution sagittal sequences is recommended. Aggressive IV antibiotics. Diabetes mellitus type II Insulin sliding scale Accu-Chek before every meal and at bedtime Continue to hold metformin Anemia of chronic disease Hemoglobin has been stable. Transfuse as needed for hemoglobin less than 8. Vital Signs/Physical Exam: Temp Pulse Resp BP Pulse Ox 97.4 F 79 18 171/91 H 99 08/15/24 16:00 08/15/24 16:00 08/15/24 17:43 08/15/24 16:00 08/15/24 17:43 Laboratory Data at Discharge: WBC 9.60 thou/uL (4.3-10.9) 08/14/24 05:44 Hgb 9.2 g/dL (13.6-17.9) L 08/14/24 05:44 Hct 26.7 % (39.6-49.0) L 08/14/24 05:44 Plt Count 341 thou/uL (152-406) 08/14/24 05:44 PT 14.5 SECONDS (9.4-12.5) H 08/11/24 21:15 INR 1.30 08/11/24 21:15 APTT 67.9 SECONDS (24.3-36.9) H 08/15/24 02:25 Sodium 134 mEq/L (136-145) L 08/14/24 05:44 Potassium 3.8 mEq/L (3.5-5.1) 08/14/24 05:44 BUN 16 mg/dL (7-18) 08/14/24 05:44 Creatinine 0.89 mg/dL (0.70-1.30) 08/14/24 05:44 Glucose 126 mg/dL (74-106) H 08/14/24 05:44 Magnesium 2.3 mg/dL (1.6-2.4) 08/11/24 21:15 Total Bilirubin 0.4 mg/dL (0.2-1.0) 08/14/24 05:44 AST 16 U/L (15-37) 08/14/24 05:44 ALT 17 U/L (16-61) 08/14/24 05:44 Alkaline Phosphatase 81 U/L (45-117) 08/14/24 05:44 Triglycerides 122 mg/dL (<150) 08/13/24 05:41 Cholesterol 99 mg/dL (<200) 08/13/24 05:41 HDL Cholesterol 26 mg/dL (40-60) L 08/13/24 05:41 Cholesterol/HDL Ratio 3.81 08/13/24 05:41 Lipase 17 U/L (13-75) 08/11/24 21:15 Home Medications: Amlodipine [Norvasc] 5 mg PO DAILY 08/12/24 Atorvastatin Calcium [Lipitor] 40 mg PO BEDTIME 08/12/24 Carvedilol [Coreg] 25 mg PO BID 08/12/24 Losartan Potassium [Cozaar] 25 mg PO DAILY 08/12/24 Metformin HCl [Glucophage] 1,000 mg PO DAILY WITH BREAKFAST 08/12/24 Pantoprazole [Protonix Tab*] 1 tab PO DAILY 08/12/24 Followup: Ajit Appiah MD [Primary Care Provider] -
[2024-08-16] MEDS ORDERED: VANCOMYCIN 1.5 GM in NA CHLORIDE 0.9% 500 ML IVPB SCH (09:00)
[2024-08-16] MEDS ORDERED: LOSARTAN POTASSIUM 50 MG TABLET PO SCH (09:00)
== END 2024-08-15 17:55 | disposition short-term general hospital (02) | DRG 193 ==
LOC: ER 20:08 → ERHOLD 08-12 05:00 → 4TH 08-12 07:35
PROVIDERS: ADMIT Family Medicine; ATTEND Internal Medicine
DX: J18.0 Bronchopneumonia, unspecified organism (principal); G06.2 Extradural and subdural abscess, unspecified; I25.110 Atherosclerotic heart disease of native coronary artery with unstable angina pectoris; E87.1 Hypo-osmolality and hyponatremia; I16.1 Hypertensive emergency; M46.25 Osteomyelitis of vertebra, thoracolumbar region; I11.0 Hypertensive heart disease with heart failure; I50.9 Heart failure, unspecified; E11.65 Type 2 diabetes mellitus with hyperglycemia; E78.00 Pure hypercholesterolemia, unspecified; D63.8 Anemia in other chronic diseases classified elsewhere; I25.2 Old myocardial infarction; B95.62 Methicillin resistant Staphylococcus aureus infection as the cause of diseases classified elsewhere; R07.89 Other chest pain; Z95.1 Presence of aortocoronary bypass graft; Z95.5 Presence of coronary angioplasty implant and graft; Z79.82 Long term (current) use of aspirin; Z11.52 Encounter for screening for COVID-19; Z79.84 Long term (current) use of oral hypoglycemic drugs; Z79.02 Long term (current) use of antithrombotics/antiplatelets; Z28.310 Unvaccinated for COVID-19; Z79.899 Other long term (current) drug therapy; Z87.891 Personal history of nicotine dependence
CPT/HCPCS: 36415; 70450; 71045; 71250; 72157; 72158; 74176; 80048; 80053; 80061; 80076; 80202; 81001; 82947; 83605; 83690; 83735; 83880; 84145; 84484; 85025; 85610; 85730; 86140; 87040; 87077; 87186; 87205; 87804; 87811; 93005; 94760; 99285; A9577; J0696; J1644; J2270; J2405; J2543; J7030; J7040; J7050

== ENCOUNTER 2024-08-27 20:02 | Inpatient (IN) | payer OTHER ==
[2024-08-27] MEDS: INSULIN REGULAR (HUMAN) 100 UNIT/ML SQ SCH (21:00)
[2024-08-27] MEDS: TIZANIDINE 4 MG TABLET PO PRN (21:25)
[2024-08-27] MEDS: ATORVASTATIN 20 MG TAB PO SCH (21:30)
--- NOTE | 2024-08-27 21:32 | RAD REPORT ---
Procedure: Chest Single View HISTORY: Device placement. PICC line placement FINDINGS: A PICC line has been inserted with its tip in the mid superior vena cava
[2024-08-27] MEDS ORDERED: SIMETHICONE 80 MG CHEWABLE TAB PO PRN (21:54)
[2024-08-27 22:17] LABS: Renal Epithelial <5 /HPF (None Seen); Sqamous Epithelial None Seen /HPF (None Seen); Urine Bacteria None Seen /HPF (<20); Urine Bilirubin NEGATIVE (Negative); Urine Blood 3+ (OVER) (Negative); Urine Clarity Extremely Turbid (Clear); Urine Color Colorless (Yellow); Urine Culture Reflex Order REFLEXED; Urine Glucose NEGATIVE (Negative); Urine Ketones NEGATIVE (Negative); Urine Micro Reflex YN NO BILL MICROSCOPIC; Urine Mucus Slight /HPF (None Seen); Urine Nitrite NEGATIVE (Negative); Urine Protein 2+ (Negative); Urine RBC >50 /HPF (None Seen); Urine Urobilinogen 2+ (Normal); Urine WBC 20-50 /HPF (<5); Urine WBC Clump Rare /HPF (None Seen); Urine Yeast (Budding) Trace /HPF (None Seen); Urine Yeast with Hyphae Trace /HPF (None Seen)
[2024-08-27 22:31] VITALS: BMI 27.9
[2024-08-28] MEDS: HYDROCODONE/APAP 5/325 MG TAB PO PRN (01:24)
[2024-08-28 06:10] LABS: Absolute Eosinophils 0.5 K/uL (0-0.5); Absolute Lymphocytes (CBC) 0.7 K/uL (0.7-4.9); Absolute Monocytes 0.5 K/uL (0.1-1.3); Absolute Neutrophil 4.5 K/uL (1.8-8.0); Basophils % 0.6 % (0-1.3); Eosinophils % 8.5 % (0-4.4); Hematocrit 23.8 % (39.6-49.0); Hemoglobin 8.3 g/dL (13.6-17.9); Lymphocytes % 11.1 % (15.3-44.8); MCH 29.8 pg (27.0-35.0); MCHC 34.6 g/dL (32.0-36.0); Monocytes % 7.4 % (3.3-12.3); Neutrophils % 72.4 % (41.7-73.7); Nucleated Red Blood Cells % 0.1 % (0-0); Platelets 223 thou/uL (152-406); RBC Red Blood Cell Count 2.77 M/uL (4.33-5.43); Red Cell Distribution Width 15.6 % (12.1-15.2)
[2024-08-28 06:31] LABS: Anion Gap 5.1 mEq/L (5.0-15.0); Potassium 4.1 mEq/L (3.5-5.1); Prealbumin 13.9 mg/dL (20-40)
[2024-08-28] MEDS: ENOXAPARIN 40 MG/0.4 ML SQ SCH (07:06)
[2024-08-28] MEDS: ASPIRIN EC 81 MG TAB PO SCH (07:36)
[2024-08-28] MEDS: PANTOPRAZOLE 40MG TABLET PO SCH (07:36)
[2024-08-28] MEDS: TAMSULOSIN 0.4 MG SR CAP PO SCH (07:36)
[2024-08-28] MEDS: carvediloL 6.25 MG TAB PO SCH (07:36)
[2024-08-28] MEDS: LOSARTAN POTASSIUM 50 MG TABLET PO SCH ×2 (08:00→19:35)
[2024-08-28] MEDS: AMLODIPINE 5 MG TAB PO SCH ×2 (08:00→17:11)
[2024-08-28] MEDS: CRANBERRY FRUIT EXTRACT 200 MG CAP PO SCH (08:29)
[2024-08-28] MEDS: METFORMIN HCL 500 MG TAB PO SCH (08:29)
[2024-08-28] MEDS: GLUCERNA SHAKE 237 ML CAN PO SCH (08:29)
[2024-08-28] MEDS: FERROUS SULFATE 325 MG TAB PO SCH (08:29)
--- NOTE | 2024-08-28 13:31 | P.RH.PN ---
Estimated Length of Stay: 12 Discharge Disposition Plan: Home Family Support: Yes Vital Signs: Last Vital Signs Temp 97.8 F 08/28/24 07:08 Pulse 69 08/28/24 10:00 Resp 16 08/28/24 08:03 BP 106/59 L 08/28/24 10:00 Pulse Ox 98 08/28/24 08:03 Laboratory: Laboratory Last Values WBC 6.20 thou/uL (4.3-10.9) 08/28/24 05:15 RBC 2.77 M/uL (4.33-5.43) L 08/28/24 05:15 Hgb 8.3 g/dL (13.6-17.9) L 08/28/24 05:15 Hct 23.8 % (39.6-49.0) L 08/28/24 05:15 MCV 86.0 fL (80-100) 08/28/24 05:15 MCH 29.8 pg (27.0-35.0) 08/28/24 05:15 MCHC 34.6 g/dL (32.0-36.0) 08/28/24 05:15 RDW 15.6 % (12.1-15.2) H 08/28/24 05:15 Plt Count 223 thou/uL (152-406) 08/28/24 05:15 MPV 7.0 fL (7.6-11.3) L 08/28/24 05:15 Neutrophils % 72.4 % (41.7-73.7) 08/28/24 05:15 Lymphocytes % 11.1 % (15.3-44.8) L 08/28/24 05:15 Monocytes % 7.4 % (3.3-12.3) 08/28/24 05:15 Eosinophils % 8.5 % (0-4.4) H 08/28/24 05:15 Basophils % 0.6 % (0-1.3) 08/28/24 05:15 Absolute Neutrophils 4.5 K/uL (1.8-8.0) 08/28/24 05:15 Absolute Lymphocytes 0.7 K/uL (0.7-4.9) 08/28/24 05:15 Absolute Monocytes 0.5 K/uL (0.1-1.3) 08/28/24 05:15 Absolute Eosinophils 0.5 K/uL (0-0.5) 08/28/24 05:15 Absolute Basophils 0.0 K/uL (0-0.5) 08/28/24 05:15 Sodium 137 mEq/L (136-145) 08/28/24 05:15 Potassium 4.1 mEq/L (3.5-5.1) 08/28/24 05:15 Chloride 104 mEq/L (98-107) 08/28/24 05:15 Carbon Dioxide 32 mEq/L (21-32) 08/28/24 05:15 Anion Gap 5.1 mEq/L (5.0-15.0) 08/28/24 05:15 BUN 12 mg/dL (7-18) 08/28/24 05:15 Creatinine 1.01 mg/dL (0.70-1.30) 08/28/24 05:15 Est GFR (CKD-EPI) 87 ml/min (=/>90) L 08/28/24 05:15 Glucose 108 mg/dL (74-106) H 08/28/24 05:15 POC Glucose 121 mg/dL (65-120) H 08/28/24 12:17 Hemoglobin A1c 6.3 % (4.2-6.3) 08/28/24 05:15 Calcium 8.6 mg/dL (8.5-10.1) 08/28/24 05:15 Magnesium 2.0 mg/dL (1.6-2.4) 08/28/24 05:15 Albumin 2.0 g/dL (3.4-5.0) L 08/28/24 05:15 Prealbumin 13.9 mg/dL (20-40) L 08/28/24 05:15 Urine Color Colorless (Yellow) 08/27/24 21:35 Urine Clarity Extremely turbid (Clear) H 08/27/24 21:35 Urine pH 7.0 (5.0-7.0) 08/27/24 21:35 Ur Specific [place] 1.010 (1.005-1.030) 08/27/24 21:35 Glucose (UA)(Auto) Negative (Negative) 08/27/24 21:35 Urine Ketones Negative (Negative) 08/27/24 21:35 Urine Blood 3+ (over) (Negative) H 08/27/24 21:35 Urine Nitrite Negative (Negative) 08/27/24 21:35 Urine Bilirubin Negative (Negative) 08/27/24 21:35 Urine Urobilinogen 2+ (Normal) H 08/27/24 21:35 Ur Leukocyte Esterase 500 [place]/uL (Negative) H 08/27/24 21:35 Urine RBC >50 /HPF (None Seen) H 08/27/24 21:35 Urine WBC 20-50 /HPF (<5) H 08/27/24 21:35 Urine WBC Clumps Rare /HPF (None Seen) 08/27/24 21:35 Ur Squamous Epith Cells None seen /HPF (None Seen) 08/27/24 21:35 U Non-Squamous Epi Cells <5 /HPF (None Seen) 08/27/24 21:35 Ur Renal Epithelial Cell <5 /HPF (None Seen) 08/27/24 21:35 Urine Bacteria None seen /HPF (<20) 08/27/24 21:35 Urine Mucus Slight /HPF (None Seen) 08/27/24 21:35 Ur Yeast w Hyphae Trace /HPF (None Seen) H 08/27/24 21:35 Urine Yeast (Budding) Trace /HPF (None Seen) H 08/27/24 21:35 Urine Culture Reflexed Reflexed 08/27/24 21:35 Urine Total Protein 2+ (Negative) H 08/27/24 21:35 Weight: 184 lb Wound Present: No Negative Pressure Wound Therapy Present: No Physician Update: Labs reviewed and are stable. Still on IV antibiotics. Max assist for transfers. Max with bed mobility, dependent with sliding board. His arms are strong. May not be able to walk within the next 3 weeks. Incontinent of stool and urine. Comment: generalized scaly skin- psoariasis Summary: Patient's care plan and assisted goals have been reviewed and revised as necessary. Please see the Rehabilitation Signature page for all necessary signatures.
[2024-08-28] MEDS: DAPTOmycin 700 MG in NA CHLORIDE 0.9% 100 ML IVPB SCH (13:57)
[2024-08-28] MEDS: GABAPENTIN 300 MG CAP PO SCH (19:34)
[2024-08-28] MEDS: SENOSIDES 8.6 MG TAB PO PRN (19:35)
[2024-08-28] MEDS: MELATONIN 3 MG TABLET PO PRN (19:36)
[2024-08-28] MEDS ORDERED: AMLODIPINE 5 MG TAB PO SCH (21:00)
--- NOTE | 2024-08-28 22:30 | RAD REPORT ---
EXAM: AP view(s) of the abdomen Abdomen 1 View (KUB) HISTORY: constipation COMPARISON: None FINDINGS: Nonobstructive bowel gas pattern.. Low formed stool burden. No suspicious calcifications are seen. No acute osseous abnormality. Other: n/a IMPRESSION: Nonobstructive bowel gas pattern.
--- NOTE | 2024-08-29 02:28 | HP ---
Date of Admission: 08/27/2024 Time Of Service: 1:10 p.m. Chief Complaint: "I can't move my legs. I had an abscess in my spine." History Of Present Illness: Mr. Arzola is a 59-year-old patient with hypertension, dyslipidemia, chapin betes mellitus, who was admitted initially to [facility] for bronchopneumonia, pyelonephritis, and no i-IJ-rfotoxt myocardial infarction along with kidney injury. He had a left heart catheterization андрей t showed diffuse left anterior descending disease. He was subsequently discharged, but was re--admit frank to [place] on 08/12 with unstable angina and transferred to [facility] fo r higher level of care and cardiac workup. He subsequently had MRSA and was treated with vancomycin. His noted that he had been having back pain for about 3 weeks and on the had bilateral lo wer extremity numbness, which eventually led to paralysis. An MRI showed a large multilevel thoracic epidural abscess. Neurosurgery was consulted and emergently taken to the operating room for T6 to T 9 laminectomy and epidural evacuation of the spinal cord abscess. His course complicated by expected saddle anesthesia, urinary retention, and inability to move stools and required a Hunter catheter and straight catheterization subsequently. He is of course incontinent of bowel and bladder because of his cord injury. He is treated with aspirin, heparin drip for the unstable angina and was given prot amine for reversal and 2 units of platelets prior to surgery. He had a PICC line placed on 08/25 for IV daptomycin for 6 weeks. He did have a catheter placed on 08/26 and was medically cleared for in[facility] rehabilitation. At the time when he was evaluated by therapy service, found to require amira l assist for bed mobilization, contact guard for sitting at edge of bed, moderate assist sit to supin e, trying to achieve trunk control. He is unable to stand secondary to severe weakness and decreased sensation in the lower extremities around the T6 level. Prior to this event, he was independently a mbulating without an assistive device and his issues such as cognition, depression, and mood were not impacted, but subsequently found to have depressed mood and cognitive decline. The patient's kandis souzaes that he is very emotional, may cry at times and is very sad about his current situation. As a r esult of his significant change, there is a decline in his capacity to perform activities of daily li ving, to maintain good judgment and mood and behavior and is therefore requiring speech therapy to he lp improve these parameters. Inpatient rehabilitation is necessary as if he is to be discharged home or go to [place] [facility], he would likely not thrive, but worsen. Therefore, to avoid rehospitaliza tion and to help him to return towards his prior level of functioning, inpatient rehabilitation was andreina moscoso. Past Medical History: Coronary artery disease, diabetes mellitus, hypertension, recent left heart ca theterization. Imaging: A chest x-ray done on 08/06/2024 shows multifocal patchy peribronchovascular ground-glass a nd consolidative opacities concerning for infectious versus inflammatory etiology. Subsequent chest x-ray on 08/17 shows no acute cardiorespiratory disease. X-ray of the knee and the legs actually on 08/15 showed no acute abnormalities. Allergies: NO KNOWN DRUG ALLERGIES. Medications: Tylenol 650 mg every 6 hours as needed, Norvasc 5 mg at bedtime, aspirin 81 mg daily, L ipitor 20 mg at bedtime, Coreg 6.25 mg twice daily, daptomycin 700 mg every 24 hours, Lovenox 40 mg s ubcutaneously daily, Glucerna 237 mL twice daily, ferrous sulfate 325 mg daily, gabapentin 300 mg twi ce daily, Canby 5/325 every 4 hours as needed, Cozaar 100 mg at bedtime, melatonin 3 mg at bedtime, m etformin 500 mg twice daily, Protonix 40 mg daily, Senokot-S 8.6 mg at bedtime, simethicone 80 mg jose ry 6 hours as needed, Flomax 0.4 mg daily, Zanaflex 2 mg every 6 hours. Family History: Noncontributory. Social History: No alcohol, tobacco, or IV drug use. Lives in single family home and was independen t. Code Status: Full code. Review of Systems: He does report some pain in the lower back as he tries to lie down. It is very difficult for him to try to mobilize as he just uses arms only, which are fully strong. He has no meaningful use of the l egs, and after sitting and lying for a while, there is severe pain in the buttocks area, of course wh ich would be at high risk of decubital ulcers and will be offloaded. He will actually have a trapeze placed above the head, so he can use the arm to shift and roll as he begins to return to his more fu nctional activities such as transfers, mobilization, sit to stand and taking care of his upper and lo wer body dressing. Current Level Of Functioning: Currently, supervision for oral hygiene, dependent for toileting, depe ndent for bathing maximal assistance for upper body dressing, dependent for lower body dressing, depe ndent for donning and doffing footwear, moderate assistance for rolling left to right, dependent for sit to lying, maximum assistance for lying to sitting on side of bed. Sit to stand is at dependent l evel. Moving from bed to chair is dependent. Toilet transfer dependent. Gait, unable to ambulate. Wheelchair, will be working with wheelchair mobilization. Physical Examination: Vital Signs: Blood pressure 106/59, pulse 69, respiratory rate 16, temperature 97.8, oxygen saturati on 98%. Weight 184 pounds, height 5 feet 8 inches, BMI 28.0. General: Mr. Arzola is resting in bed. He does appear to be normocephalic, atraumatic. Sclerae ani cteric. Oropharynx pink and moist. Neck: Supple. Chest: Clear. Heart: Regular. Extremities: Show mild edema bilaterally proximally and distally. Neurologic: Cranial nerves intact. Upper extremities strength full proximally and distally. Lower extremities trace or 0 proximally and distally and sensation is decreased, although there is dysesthe curtis below the T6 level. He has no capacity for coordination and gait at this point in the lower extr emity. Upper extremity intact coordination, again full strength. Laboratory Studies: White blood cell count 6.2, hemoglobin 8.3, platelets 223. Sodium 137, potassiu m 4.1, chloride 104, carbon dioxide 32, BUN 12, creatinine 1.01, his glucose ranged from 97 to 121, h emoglobin A1c 6.3, calcium 8.6, magnesium 2.0, albumin 2.0, prealbumin 13.9. Urinalysis shows extrem e turbidity, 3+ blood, 2+ urobilinogen, 500 esterase, red blood cells greater than 50, white blood ce lls 20 to 50, trace yeast with hyphae and budding yeast, total protein 2+, bacteria none seen. X-ray/imaging: A chest x-ray done yesterday on 08/27/2024 shows PICC line that has been inserted to the tip of the mid superior vena cava. An x-ray was done to evaluate PICC line placement before usag e. Rehab And Medical Assessment And Plan: Mr. Arzola is admitted to the inpatient rehabilitation unit w ith impairment category 05, spinal cord dysfunction nontraumatic. His impairment group code is 04.13 0, nontraumatic spinal cord dysfunction. Etiologic diagnosis, T6 to T9 epidural abscess with cord co mpression, status post decompression. Comorbidities are coronary artery disease, decreased mobility, decreased physical functioning, diabetes mellitus type 2, dyslipidemia, hypertension, methicillin-re sistant Staph aureus, neurogenic bladder, low back pain with the potential for development of decubit us ulcer , sleep apnea, urinary retention, stool incontinence. He also has unstable angina . Plan: 1.He will have physical, occupational, and speech therapy for 3-1/2 hours, 5 of 7 days. 2.For his coronary artery disease, we will continue managing the rate with Coreg 6.25 mg twice daily . We will continue if need be. We will have nitroglycerin 0.4 mg every 4 hours as needed for chest pain. We will use gabapentin 300 mg twice daily to assist with pain management, Canby added as well 5/325 every 4 hours, Norvasc for blood pressure control, aspirin for stroke risk reduction, Lipitor f or dyslipidemia. He has daptomycin continuing for the spinal cord abscess. Lovenox for DVT prophyla xis, Glucerna for malnutrition, ferrous sulfate for iron deficiency, metformin for diabetes mellitus, Senokot for constipation, Flomax for his prostate hypertrophy and increasing urinary flow as much as possible, Xanax for muscle relaxation, Mylicon for his extra bloating or gas. Comorbidities That Are Impacting Rehabilitation: Mr. Arzola as noted has multiple comorbid condition s. This could potentially impact his rehabilitation. He has of course coronary artery disease, myoc ardial infarction. As he ambulates and mobilizes, he will be carefully observed for any worsening ch est pain and will be treated appropriately. EKG may be done if required. Cardiology consultation wi ll be sought. Of course, the spinal cord infection with abscess makes it very tough for him to be re cover as he potentially has significant damage to spinal cord; however, his strong effort may help hi m regain some functional use of the lower extremity. Also control of his bowel bladder will be worke d on. Bladder training as much as possible will be engaged in. Rehab Specific Plan: Mr. Arzola will have physical, occupational, and speech therapy for 3-1/2 hours , 5 of 7 days to improve his ability to transfer from bed to a chair by sliding board to a wheelchair by sliding board, on and off toilet by sliding board, also into the tub by transfer bench. Will be able to do [id number] using the arms. We will have trapeze above the bed to help him mobilize and offload and if need be, we will put protective barrier in the sacral region to decrease the risk of s kin breakdown and additional infection. Of course, his antibiotics will be continued and potentially beyond the time he is hospitalized and so an infusion company may be required to assist with continu ing the IV antibiotics after his discharge. Also, dressing upper and lower body will be worked on to wards a modified independent level. Mr. Arzola has a good understanding of the process of admission to the inpatient rehabilitation, how he will benefit from physical, occupational, and speech therapy. He will have 24 hours a day, 7 days a week skilled rehabilitation nursing, daily physician evaluation and management, and social service evaluation and management for discharge planning, home equipment, followup, and continue therapy. I f needed, additional help will be sought from the hospitalist service and the infectious disease serv ice. Barriers To Discharge: Mr. Arzola has abscess, status post decompression. He has T6 to T9 dysfuncti on below the cord level showing very little functional use. He may have a very long recovery or life long need to receive assistance to transfer in terms of ordinary activities from bed to chair, to a w heelchair, to a toilet and therefore may be very difficult for him to be able to go home unless he harrison s a lot of help, may require long-term placement. Length Of Stay: Over 2 weeks or so. Disposition: To be able to be home with family and therapy to continue. Prognosis: Fair. Rehab Specific Goals: 1.To become independent with upper and lower body dressing and may be min assist with lower body malcolm ssing and donning and doffing of footwear. 2.Independently or modified independently transfer from bench to bed, to a wheelchair, to a toilet a nd to a shower. 3.With modified independence perform showering and upper and lower body dressing. 4.To mobilize with wheelchair at least 250 feet and he is not expected to stand and ambulate or to g o up and down steps. The above goals were reviewed with Mr. Arzola and he is in agreement. By signing this document, I acknowledge I first performed a full physical examination on Mr. Arzola n o later than 24 hours after his admission to the inpatient rehabilitation facility and determined андрей t he is able to tolerate the above course of treatment at an intensive level for a reasonable period of time. A detailed individualized plan of care for him will be completed by hospital day 4 based on the preadmission screen, history and physical and therapy evaluations. PRAMOD Voice ID: [id number]
[2024-08-29] MEDS: TIZANIDINE 4 MG TABLET PO PRN (19:49)
[2024-08-30 06:00] LABS: Absolute Eosinophils 0.5 K/uL (0-0.5); Absolute Lymphocytes (CBC) 0.9 K/uL (0.7-4.9); Absolute Monocytes 0.4 K/uL (0.1-1.3); Absolute Neutrophil 4.4 K/uL (1.8-8.0); Basophils % 0.4 % (0-1.3); Eosinophils % 8.7 % (0-4.4); Hemoglobin 7.3 g/dL (13.6-17.9); Lymphocytes % 14.7 % (15.3-44.8); MCH 29.3 pg (27.0-35.0); MCHC 33.3 g/dL (32.0-36.0); MCV 87.8 fL (80-100); MPV 7.3 fL (7.6-11.3); Monocytes % 6.4 % (3.3-12.3); Neutrophils % 69.8 % (41.7-73.7); Platelets 203 thou/uL (152-406); RBC Red Blood Cell Count 2.51 M/uL (4.33-5.43); Red Cell Distribution Width 15.5 % (12.1-15.2)
[2024-08-30] MEDS: FE SULF/FA/VIT B COMP & C TAB PO SCH (08:26)
[2024-08-30] MEDS: SODIUM CHLORIDE 0.9% 10ML INJ IV SCH (08:27)
[2024-08-30] MEDS: LIDOCAINE 4% PATCH TOP SCH (15:18)
[2024-08-30] MEDS: SENOSIDES 8.6 MG TAB PO SCH (19:20)
[2024-08-31 05:39] LABS: Absolute Eosinophils 0.6 K/uL (0-0.5); Absolute Lymphocytes (CBC) 0.8 K/uL (0.7-4.9); Absolute Monocytes 0.4 K/uL (0.1-1.3); Absolute Neutrophil 5.3 K/uL (1.8-8.0); Basophils % 0.4 % (0-1.3); Eosinophils % 8.1 % (0-4.4); Hematocrit 22.7 % (39.6-49.0); Hemoglobin 7.8 g/dL (13.6-17.9); Lymphocytes % 11.2 % (15.3-44.8); MCH 29.9 pg (27.0-35.0); MCHC 34.5 g/dL (32.0-36.0); MCV 86.7 fL (80-100); MPV 6.7 fL (7.6-11.3); Monocytes % 5.8 % (3.3-12.3); Neutrophils % 74.5 % (41.7-73.7); Platelets 251 thou/uL (152-406); RBC Red Blood Cell Count 2.62 M/uL (4.33-5.43); Red Cell Distribution Width 15.9 % (12.1-15.2)
[2024-08-31] MEDS ORDERED: LIDOCAINE 4% PATCH TOP SCH (08:00)
[2024-08-31] MEDS: ONDANSETRON 4 MG (ODT) TAB PO PRN (11:17)
[2024-08-31] MEDS: BISACODYL 10 MG RECTAL SUPP PR PRN (15:17)
[2024-08-31] MEDS: MAGNESIUM OXIDE 400 MG TAB PO SCH (19:51)
--- NOTE | 2024-09-01 00:37 | PN ---
Date of Progress Note: 08/31/2024 Time Of Service: 1:45 p.m. Subjective: Mr. Arzola is resting in bed in between therapy sessions, there is not significant pain in the lower back region where at T6-T9, he has an epidural abscess that has been treated. He does s how some increased movement in the lower extremities, although slightly more in the right than left. He is unable to lift the right heel off the bed slightly, very slightly able with the left heel off the bed. His heels will be offloaded with offloading boots given the patient's significant weakness to reduce risk of skin breakdown. Objective: No fevers, chills. No myalgias, arthralgias. No other complaints. There is mild muscle spasms, mild pain in the lower back, but that is managed. Physical Examination: Vital Signs: Blood pressure 154/73, pulse of 72, respiratory rate 16, temperature 97.5, oxygen satur ation 98%. Weight 184 pounds, height 5 feet 8 inches, BMI 28.0. General: Mr. Arzola is resting in bed. HEENT: He appears normocephalic, atraumatic. Sclerae anicteric. Oropharynx is moist. Extremities: Mild trace edema in the lower extremities. In terms of lower extremities, his diffuse weakness is still present, around 2 to 3/5 proximally and distally. Upper extremities fully strong w ithout restriction. Laboratory Studies: White blood cell count 7.9, hemoglobin 7.8, platelets 251. Sodium 135, potassiu m 4.0, chloride 102, carbon dioxide 31, BUN 18, creatinine 1.17, glucose ranged from 97 to 122, calci um 8.5. Urinalysis did show 500 esterase, 20 to 50 white blood cells, but no bacteria, negative nitr ites, extreme turbidity. Cultures did grow greater than 100,000 colony-forming units on the and this was a clean-catch. It is actually 3+ yeast that grew, the culture and sensitivity urine showed no growth. A KUB study was done on 08/28/2024, the study showed moderate nonobstructive bowel gas pattern and a chest x-ray done on 08/27/2024 showed the PICC line again is in the mid superior vena cava. Progress Made With Physical And Occupational Therapy: Today with physical therapy, wheelchair mobili zation was for 150 feet twice with contact guard assistance. Completed turning in bed with minimum t o moderate assistance. Completed multiple slide board transfers with maximal assistance due to poor trunk control. Regarding his occupational therapy, worked with a Thera-Band 3 sets of 10 repetitions . Did have some nausea and vomiting earlier, that was addressed with Imodium, and then he resumed th erapy. Lower back pain initially was 9/10. However, his pain was addressed adequately and at the ti me of my evaluation about 2 to 3/10. Assessment: Mr. Arzola is a 59-year-old patient in the rehabilitation unit with T6-T9 epidural absce ss, status post multilevel laminectomy to cover the T6-T9 abscess. He has decreased mobility, decrea sed physical functioning, diabetes mellitus type 2, dyslipidemia, hypertension, methicillin-resistant Staph aureus, neurogenic bladder, and angina. Plan: 1.Continue with physical, occupational, and speech therapy for 3.5 hours, 5 of 7 days. 2.Coreg 6.25 mg twice daily for hypertension control, nitroglycerin for his cardiac chest pain. Rafael apentin 300 mg twice daily continued. Reydon continued. The daptomycin was continued. Lovenox vitor nued. Flomax for prostate hypertrophy will be continued. LB/MODL Voice ID: [id number] Report ID: [id number]
--- NOTE | 2024-09-01 07:22 | RAD REPORT ---
Exam:Abdomen 1 View (KUB) Clinical history: Abdominal pain FINDINGS: A moderate to large amount of stools present throughout the colon without significant change from the August 28, 2024 exam No bowel obstruction.
[2024-09-01] MEDS: NA CHLORIDE 0.9% 1,000 ML IV SCH (09:20)
[2024-09-01 16:56] LABS: Arterial Blood Carboxyhemoglob 1.1 % (0-1.5); Blood Gas Oxyhemoglobin 83.2 % (94-97); Blood Gas THB 11.3 g/dl (12-18); Blood O2 Saturation 85.6 % (92-98.5)
[2024-09-01] MEDS: carvediloL 3.125 MG TAB PO SCH (16:58)
[2024-09-01] MEDS: TRAMADOL HCL 50 MG TAB PO PRN (18:52)
[2024-09-01] MEDS: LOSARTAN POTASSIUM 50 MG TABLET PO SCH (20:06)
--- NOTE | 2024-09-03 01:02 | PN ---
Date of Progress Note: 09/02/2024 Time Of Service: 1 p.m. Subjective: Mr. Arzola is just getting out of the shower, he used a Samira lift with 2 person help for sit to stand and get over to shower. He reports feeling more sensations in the legs, somewhat sligh t improvement in his strength in both lower extremities. Still incontinent of stool and urine. Objective: No fevers, chills. No myalgias or arthralgias. Mild pain as noted in the buttocks regio n. Heels are offloaded and denies any pain there, mild tingling is noted. Physical Examination: Vital Signs: Blood pressure 171/86, pulse 84, respiratory rate 16, temperature 98.8, oxygen saturati on 96%. General: Mr. Arzola is just getting out of the shower, sitting in a chair. HEENT: He appears normocephalic, atraumatic. Sclerae are anicteric. Oropharynx is moist. Neck: Supple. Chest: Clear. Heart: Regular. Extremities: Mild edema in the lower extremities. No cyanosis. Significant weakness in the lower e xtremities from 2 to 3/5 and sensation decreased in the lower extremities. Full strength in the uppe r extremities. Laboratory Studies: No new laboratory studies. Blood gases done yesterday, pH 7.42, pCO2 of 41.3, P O2 slightly low at 48.9, HC03 26.4. Today, blood sugars ranged from 105-114. X-ray Imaging: KUB study done on the showed [id number] amount of stool present throughout the colon. Did not see a significant change from August 28, and this is September 01. No bowel obstruction identified. Medications: Medications have been reviewed. He does have stool softener, Dulcolax, Lipitor, aspiri n, Norvasc, Coreg, daptomycin, Lovenox, ferrous sulfate, gabapentin, Cozaar melatonin, Glu cophage, Hemocyte Plus, Protonix, Senokot, Mylicon, Flomax, tizanidine, and Ultram. Progress Made With Physical, Occupational, And Speech Therapy: With physical therapy today, he compl eted supine to sit transfers with contact guard to minimum assistance, [id number] assistance for wheelchair mobilizing to the bed. However, for wheelchair mobilization by self, he covered 250 feet twice with contact guard assistance. He is still dependent with legrests. Working on a sliding board transfers. With occupational therapy, able to perform donning and doffing, lower body dressin g with maximum assistance, supine to edge of bed with maximum assistance, bed to wheelchair and wheel chair to shower transfer, he is able to pull himself up, but the knees buckled right away and had to be supported. He was able to stand for 5 minutes in the Samira lift. Assessment: Mr. Arzola is a 59-year-old patient admitted to rehabilitation unit with abscess in the T6 to T9 region. He has had a laminectomy covering that region. He has decreased mobility, decrease d physical functioning. He has very significant weakness in the bilateral lower extremities, loss of bowel and bladder control as well. He has diabetes mellitus with good control of blood sugars, dysl ipidemia, hypertension, methicillin-resistant Staph aureus, neurogenic bladder, and he is continuing the daptomycin antibiotics for his Infectious Disease team. Plan: He will continue with physical and occupational therapy 3 hours a day, 5 of 7 days. Will cont inue all comorbid condition medications as noted. He is likely to need significant help prior to him being able to go home and given his marked weakness potentially may require residential or exten ded stay unless there is a lift at home with hospital bed and accommodations accordingly along with h elp 24 hours a day, 7 days a week. CHANDANA/DEENA Voice ID: [id number] Report ID: [id number]
[2024-09-03 06:41] LABS: Absolute Eosinophils 0.6 K/uL (0-0.5); Absolute Lymphocytes (CBC) 0.6 K/uL (0.7-4.9); Absolute Monocytes 0.6 K/uL (0.1-1.3); Absolute Neutrophil 4.4 K/uL (1.8-8.0); Basophils % 0.3 % (0-1.3); Eosinophils % 9.8 % (0-4.4); Hematocrit 20.3 % (39.6-49.0); Lymphocytes % 9.3 % (15.3-44.8); MCH 30.1 pg (27.0-35.0); MCHC 34.6 g/dL (32.0-36.0); MPV 6.9 fL (7.6-11.3); Monocytes % 9.7 % (3.3-12.3); Neutrophils % 70.9 % (41.7-73.7); Platelets 247 thou/uL (152-406); RBC Red Blood Cell Count 2.33 M/uL (4.33-5.43); Red Cell Distribution Width 15.9 % (12.1-15.2)
[2024-09-03 07:07] LABS: Anion Gap 5.3 mEq/L (5.0-15.0); Magnesium 2.2 mg/dL (1.6-2.4); Potassium 4.3 mEq/L (3.5-5.1); Prealbumin 11.8 mg/dL (20-40)
[2024-09-03] MEDS: ALTEPLASE 2 MG/VIAL IV SCH (14:30)
[2024-09-03 15:25] LABS: Absolute Eosinophils 0.6 K/uL (0-0.5); Absolute Lymphocytes (CBC) 0.6 K/uL (0.7-4.9); Absolute Monocytes 0.7 K/uL (0.1-1.3); Absolute Neutrophil 5.3 K/uL (1.8-8.0); Basophils % 0.2 % (0-1.3); Eosinophils % 8.2 % (0-4.4); Hematocrit 20.7 % (39.6-49.0); Lymphocytes % 8.6 % (15.3-44.8); MCH 29.4 pg (27.0-35.0); MCHC 33.7 g/dL (32.0-36.0); MCV 87.4 fL (80-100); MPV 6.8 fL (7.6-11.3); Monocytes % 9.4 % (3.3-12.3); Neutrophils % 73.6 % (41.7-73.7); Platelets 255 thou/uL (152-406); RBC Red Blood Cell Count 2.37 M/uL (4.33-5.43); Red Cell Distribution Width 15.9 % (12.1-15.2)
[2024-09-03] MEDS ORDERED: NA CHLORIDE 0.9% 250 ML IV SCH (16:00)
--- NOTE | 2024-09-04 00:20 | PN ---
Date of Progress Note: 09/03/2024 Time Of Service: 1 p.m. Subjective: Mr. Arzola is in bed in between therapy sessions. Reports he has some more feeling and strength in his lower extremities, but no improvement in his bowel and bladder function. He does hav e a trapeze and is able to use that, shift himself around while in bed. Objective: Mild myalgias, arthralgias, and improved or decreased pain in the buttocks region, but no other new complaints. Physical Examination: Vital Signs: Blood pressure 159/72, pulse 66, respiratory rate 16, temperature 97.6, oxygen saturati on 95%. General: Mr. Arzola again is lying in bed, in no significant distress. HEENT: Normocephalic, atraumatic. Sclerae anicteric. Oropharynx pink, moist. Neck: Supple. Chest: Clear. Heart: Regular. Extremities: Show no significant edema, cyanosis, numbness, and weakness in lower extremities, uncha nged. Laboratory Studies: White blood cell count 7.1, hemoglobin 7.0. The patient does have a lower hemog lobin, hematocrit, continue a unit of blood actually. He is typed and crossed for his single unit of blood and will receive a single unit. Platelets are 255. Sodium 133, potassium 4.3, chloride 101, carbon dioxide 32, BUN 17, creatinine 0.97, glucose ranged from 100 to 216, calcium 8.7, magnesium 2. 2, albumin 2.0, prealbumin 11.8. X-ray/imaging: No x-rays or imaging. No new images done. Progress Made With Physical And Occupational Therapy: Today with his physical therapy, perform bed m obility with minimal assistance. Bed to wheelchair transfer with moderate assistance, needed moderat e to maximum assistance for moving on a sliding board to chair. He mobilized a wheelchair 250 feet t wice and 125 feet with contact guard assistance. With his occupational therapy, demonstrated independence with feeding, eating while seated in the edg e of bed. He performed lower body dressing, but required maximum assistance for wearing the pants. He required moderate assistance for bed mobilization. Rehab And Medical Assessment And Plan: Mr. Arzola is a 59-year-old patient in the rehabilitation [facility] with T6 through T9 epidural abscess, status post laminectomy. He has decreased mobility, decreased physical functioning, significant weakness of lower extremity, lost bowel and bladder control, diabe lisa mellitus, dyslipidemia, hypertension, and is continuing daptomycin. Plan: 1.He will continue with physical and occupational therapy, 3 hours a day, 5 of 7 days. 2.He has multiple comorbid condition medications which are continued including aspirin, Norvasc, Tyl enol, Lipitor, Coreg, daptomycin, antibiotics, Lovenox for DVT prophylaxis. He has ferrous sulfate, Glucerna, gabapentin, and insulin sliding scale. His metformin is scheduled at 500 mg twice daily, H emocyte Plus, Senokot for constipation. He is going to receive a unit of blood for severe anemia. CHANDANA/DEENA Voice ID: [id number] Report ID: [id number]
[2024-09-04] MEDS: ACETAMINOPHEN 325 MG TABLET PO PRN (02:35)
--- NOTE | 2024-09-04 13:55 | P.RH.PN ---
Estimated Length of Stay: 20 Expected Discharge Date: 09/15/24 Discharge Disposition Plan: Home Family Support: Yes Skilled Nursing Goal: Mobility, Transfers, Self Care Vital Signs: Last Vital Signs Temp 100.4 F 09/04/24 13:12 Pulse 88 09/04/24 13:12 Resp 18 09/04/24 13:12 BP 146/75 H 09/04/24 13:12 Pulse Ox 94 09/04/24 13:12 Laboratory: Laboratory Last Values WBC 7.10 thou/uL (4.3-10.9) 09/03/24 15:15 RBC 2.37 M/uL (4.33-5.43) L 09/03/24 15:15 Hgb 7.0 g/dL (13.6-17.9) L 09/03/24 15:15 Hct 20.7 % (39.6-49.0) L 09/03/24 15:15 MCV 87.4 fL (80-100) 09/03/24 15:15 MCH 29.4 pg (27.0-35.0) 09/03/24 15:15 MCHC 33.7 g/dL (32.0-36.0) 09/03/24 15:15 RDW 15.9 % (12.1-15.2) H 09/03/24 15:15 Plt Count 255 thou/uL (152-406) 09/03/24 15:15 MPV 6.8 fL (7.6-11.3) L 09/03/24 15:15 Neutrophils % 73.6 % (41.7-73.7) 09/03/24 15:15 Lymphocytes % 8.6 % (15.3-44.8) L 09/03/24 15:15 Monocytes % 9.4 % (3.3-12.3) 09/03/24 15:15 Eosinophils % 8.2 % (0-4.4) H 09/03/24 15:15 Basophils % 0.2 % (0-1.3) 09/03/24 15:15 Absolute Neutrophils 5.3 K/uL (1.8-8.0) 09/03/24 15:15 Absolute Lymphocytes 0.6 K/uL (0.7-4.9) L 09/03/24 15:15 Absolute Monocytes 0.7 K/uL (0.1-1.3) 09/03/24 15:15 Absolute Eosinophils 0.6 K/uL (0-0.5) H 09/03/24 15:15 Absolute Basophils 0.0 K/uL (0-0.5) 09/03/24 15:15 pH 7.42 (7.35-7.45) 09/01/24 16:24 pCO2 41.3 mmHG (35-45) 09/01/24 16:24 pO2 48.9 mmHG (75-100) L 09/01/24 16:24 HCO3 26.4 mmol/L (22-28) 09/01/24 16:24 Base Excess 2.3 mmol/L 09/01/24 16:24 Oxyhemoglobin 83.2 % (94-97) L 09/01/24 16:24 ABG O2 Sat (Measured) 85.6 % (92-98.5) L 09/01/24 16:24 ABG Carboxyhemoglobin 1.1 % (0-1.5) 09/01/24 16:24 ABG Methemoglobin 1.7 % (0-1.5) H 09/01/24 16:24 Other Total Hgb 11.3 g/dl (12-18) L 09/01/24 16:24 Inspired O2 21.0 % 09/01/24 16:24 Sodium 133 mEq/L (136-145) L 09/03/24 06:25 Potassium 4.3 mEq/L (3.5-5.1) 09/03/24 06:25 Chloride 100 mEq/L (98-107) 09/03/24 06:25 Carbon Dioxide 32 mEq/L (21-32) 09/03/24 06:25 Anion Gap 5.3 mEq/L (5.0-15.0) 09/03/24 06:25 BUN 17 mg/dL (7-18) 09/03/24 06:25 Creatinine 0.97 mg/dL (0.70-1.30) 09/03/24 06:25 Est GFR (CKD-EPI) 91 ml/min (=/>90) 09/03/24 06:25 Glucose 102 mg/dL (74-106) 09/03/24 06:25 POC Glucose 184 mg/dL (65-120) H 09/04/24 11:14 Hemoglobin A1c 6.3 % (4.2-6.3) 08/28/24 05:15 Calcium 8.7 mg/dL (8.5-10.1) 09/03/24 06:25 Magnesium 2.2 mg/dL (1.6-2.4) 09/03/24 06:25 Albumin 2.0 g/dL (3.4-5.0) L 09/03/24 06:25 Prealbumin 11.8 mg/dL (20-40) L 09/03/24 06:25 Urine Color Colorless (Yellow) 08/27/24 21:35 Urine Clarity Extremely turbid (Clear) H 08/27/24 21:35 Urine pH 7.0 (5.0-7.0) 08/27/24 21:35 Ur Specific [place] 1.010 (1.005-1.030) 08/27/24 21:35 Glucose (UA)(Auto) Negative (Negative) 08/27/24 21:35 Urine Ketones Negative (Negative) 08/27/24 21:35 Urine Blood 3+ (over) (Negative) H 08/27/24 21:35 Urine Nitrite Negative (Negative) 08/27/24 21:35 Urine Bilirubin Negative (Negative) 08/27/24 21:35 Urine Urobilinogen 2+ (Normal) H 08/27/24 21:35 Ur Leukocyte Esterase 500 Chirag/uL (Negative) H 08/27/24 21:35 Urine RBC >50 /HPF (None Seen) H 08/27/24 21:35 Urine WBC 20-50 /HPF (<5) H 08/27/24 21:35 Urine WBC Clumps Rare /HPF (None Seen) 08/27/24 21:35 Ur Squamous Epith Cells None seen /HPF (None Seen) 08/27/24 21:35 U Non-Squamous Epi Cells <5 /HPF (None Seen) 08/27/24 21:35 Ur Renal Epithelial Cell <5 /HPF (None Seen) 08/27/24 21:35 Urine Bacteria None seen /HPF (<20) 08/27/24 21:35 Urine Mucus Slight /HPF (None Seen) 08/27/24 21:35 Ur Yeast w Hyphae Trace /HPF (None Seen) H 08/27/24 21:35 Urine Yeast (Budding) Trace /HPF (None Seen) H 08/27/24 21:35 Urine Culture Reflexed Reflexed 08/27/24 21:35 Urine Total Protein 2+ (Negative) H 08/27/24 21:35 ABO/Rh A POSITIVE 09/03/24 16:06 Solid Phase Ab Screen Negative 09/03/24 16:06 Crossmatch See Detail 09/03/24 16:06 Weight: 184 lb Wound Present: No Closed Surgical Incision Present: Yes Negative Pressure Wound Therapy Present: No Physician Update: Has a low grade fever with pus in his kang today. Blood cultures x 2, repeat UA, procalcitonin and lactic acid and chest x-ray. His Hgb is 7. Transfering with sliding board at mod assist plus trapeze and bed rail. Dependent with toileting. Independent with upper body ADLs. Max with lower body dressing. Dependent with toileting. Min assist bed mobility if instructed he does it independently 30% of the time. Into bed is at max assist. WC 250' x 2 with CGA. Comment: generalized scaly skin - psoariasis Summary: Patient's care plan and alf goals have been reviewed and revised as necessary. Please see the Rehabilitation Signature page for all necessary signatures.
[2024-09-04 14:00] LABS: Absolute Eosinophils 0.6 K/uL (0-0.5); Absolute Lymphocytes (CBC) 0.5 K/uL (0.7-4.9); Absolute Monocytes 0.7 K/uL (0.1-1.3); Absolute Neutrophil 5.7 K/uL (1.8-8.0); Basophils % 0.1 % (0-1.3); Eosinophils % 7.8 % (0-4.4); Hematocrit 20.9 % (39.6-49.0); MCH 29.4 pg (27.0-35.0); MCHC 33.4 g/dL (32.0-36.0); MPV 7.2 fL (7.6-11.3); Monocytes % 9.5 % (3.3-12.3); Neutrophils % 75.6 % (41.7-73.7); Platelets 255 thou/uL (152-406); RBC Red Blood Cell Count 2.38 M/uL (4.33-5.43); Red Cell Distribution Width 16.1 % (12.1-15.2)
--- NOTE | 2024-09-04 14:33 | RAD REPORT ---
Procedure: Chest Single View HISTORY: Chest pain COMPARISON: July 2024 FINDINGS: Right hemithorax is hazy Left lung appears clear. PICC line in place. The heart is normal size. IMPRESSION: Right hemithorax is hazy probably secondary to a combination of pleural effusion and atelectasis/infi ltrate.
[2024-09-04 15:48] LABS: Specific Gravity 1.022 (1.005-1.030); Urine Bilirubin NEGATIVE (Negative); Urine Blood 2+ (Negative); Urine Clarity Extremely Turbid (Clear); Urine Color Dark-Yellow (Yellow); Urine Glucose NEGATIVE (Negative); Urine Ketones NEGATIVE (Negative); Urine Microscopic Reflex YN NO UMIC; Urine Nitrite NEGATIVE (Negative); Urine Protein 3+ (Negative); Urine Urobilinogen Normal (Normal); Urine pH 5.5 (5.0-7.0)
[2024-09-04] MEDS ORDERED: ALBUTEROL 2.5 MG/3 ML NEB SOL NEB PRN (17:40)
[2024-09-04] MEDS: CYANOCOBALAMIN 1000MCG/ML INJ IM SCH (22:06)
[2024-09-05 04:13] LABS: Hematocrit 22.9 % (39.6-49.0)
[2024-09-05] MEDS: BENZONATATE 100 MG CAP PO SCH (19:40)
[2024-09-05] MEDS: guaiFENesin 100 MG/5 ML UCUP PO PRN (22:15)
[2024-09-07 16:34] LABS: Absolute Eosinophils 0.8 K/uL (0-0.5); Absolute Lymphocytes (CBC) 0.5 K/uL (0.7-4.9); Absolute Monocytes 0.7 K/uL (0.1-1.3); Absolute Neutrophil 5.9 K/uL (1.8-8.0); Basophils % 0.2 % (0-1.3); Eosinophils % 10.5 % (0-4.4); Hematocrit 24.2 % (39.6-49.0); Hemoglobin 8.1 g/dL (13.6-17.9); Lymphocytes % 6.6 % (15.3-44.8); MCH 28.4 pg (27.0-35.0); MCHC 33.4 g/dL (32.0-36.0); Monocytes % 8.3 % (3.3-12.3); Neutrophils % 74.4 % (41.7-73.7); Platelets 294 thou/uL (152-406); RBC Red Blood Cell Count 2.85 M/uL (4.33-5.43); Red Cell Distribution Width 16.9 % (12.1-15.2)
[2024-09-07 16:44] LABS: Anion Gap 9.6 mEq/L (5.0-15.0); Potassium 4.6 mEq/L (3.5-5.1)
[2024-09-07 16:51] LABS: Specific Gravity 1.016 (1.005-1.030); Sqamous Epithelial <5 /HPF (None Seen); Urine Bacteria <20 /HPF (<20); Urine Bilirubin NEGATIVE (Negative); Urine Blood 3+ (Negative); Urine Clarity Extremely Turbid (Clear); Urine Color Yellow (Yellow); Urine Crystals Unidentified Few /HPF (None Seen); Urine Culture Reflex Order REFLEXED; Urine Glucose NEGATIVE (Negative); Urine Ketones NEGATIVE (Negative); Urine Microscopic Reflex YN ORDER UMIC; Urine Mucus Slight /HPF (None Seen); Urine Nitrite NEGATIVE (Negative); Urine Protein 2+ (Negative); Urine RBC >50 /HPF (None Seen); Urine Urobilinogen Normal (Normal); Urine WBC >50 /HPF (<5); Urine WBC Clump Rare /HPF (None Seen); Urine Yeast (Budding) Many /HPF (None Seen)
[2024-09-07] MEDS ORDERED: NA CHLORIDE 0.9% 1,000 ML ONE (17:10)
[2024-09-07] MEDS: NA CHLORIDE 0.9% 1,000 ML IV SCH (17:15)
[2024-09-07] MEDS ORDERED: NA CHLORIDE 0.9% 1,000 ML IV SCH (18:00)
[2024-09-07] MEDS: BACLOFEN 10 MG TAB PO SCH (19:23)
--- NOTE | 2024-09-08 01:17 | PN ---
Date of Progress Note: 09/07/2024 Time Of Service: 1 p.m. Subjective: Mr. Arzola was resting in bed. The staff did note he was somewhat more sleepy today, bu t at the time of my evaluation, he was arousable and was communicating effectively, feeling that he w as improving somewhat. However, it is noted that the patient did have a slight fever. His white blo od cell count remained normal. Procalcitonin that has been repeated slightly elevated. Lactic acid remains normal. Urinalysis was done last week, but it did not include cultures and sensitivity. A r epeat urinalysis has been drawn. A chest x-ray also done last week shows no evidence of pneumonia. Objective: low-grade fever. He denies any myalgias, arthralgias, rash, headache, weight change. Physical Examination: Vital Signs: Current temperature is 100.1, that was down to around 99 after Tylenol. Pulse of 85, r espiratory rate 18, blood pressure 178/83, oxygen saturation 93%. General: Mr. Arzola is resting in bed. His surgical site in the back is with good hemostasis. No e vidence of an infection. He has no areas of skin breakdown in the decubital area and on the heels. Neurologic: He still has the marked weakness of lower extremities. He is able to move his feet with dorsiflexion and plantarflexion, unable to hold his legs off the bed. Does have some mild improveme nt in sensation in both lower extremities. Fully strong in the upper extremities. Laboratory Studies: White blood cell count 7.9, his hemoglobin is 8.1, platelets 294. Sodium 130, p otassium 4.6, chloride 97, carbon dioxide 28, BUN 24, creatinine 1.04, his glucose 119. Procalcitoni n 0.19, which was a slight increase from his last procalcitonin of 0.15 done 3 days ago. Repeat urin alysis today shows esterase 250, red blood cells greater than 50, white blood cells greater than 50, bacteria were less than 20, there were many budding yeasts, 2+ total protein, 3+ blood, extreme turbi dity. Progress Made With Physical And Occupational Therapy: With physical therapy today, he completed whee lchair mobilization, propelling forward, pulling on the feet was able to hold the feet up for 2 to 3 feet while mobilizing the wheelchair about 40 feet and then he did another 30 feet propelling backwar ds with upper extremities. He completed wheelchair mobilization later 250 feet with bilateral upper extremities with standby to modified independence. With his occupational therapy, maximum assistance for [id number] transfer. Did exercise with Thera-Band. Rehab And Medical Assessment And Plan: Mr. Arzola is a 59-year-old patient admitted to rehabilitatio n unit with T6 to T9 abscess, status post laminectomy. He has had a slightly elevated temperature wi th elevated procalcitonin with negative lactic acid. The urinalysis suggests a potential of yeast. There is a urine culture that is waiting. The current urinalysis did not suggest bacterial infection , although esterase is present. We will await the results and may change his antibiotic regimen. He is receiving the daptomycin for subdural abscess. He has Flomax for prostate hypertrophy. He is re ceiving sodium for hyponatremia, melatonin for insomnia, Cozaar for hypertension, gabapentin for his neuropathic pain. He has Lovenox for DVT prophylaxis. Baclofen for muscle spasms, Lipitor for dysli pidemia, nebulizer treatment for shortness of breath. He will continue with physical and occupationa l therapy for 3 hours a day, 5 of 7 days. Comorbidities That Are Impacting Rehabilitation: Low-grade fever. Still no clear etiology. Lungs d id not suggest pneumonia. No areas of skin breakdown. Urinalysis potentially is a source and urine cultures are pending that will be followed. He is still able to do his therapy despite that and comp leted 3 hours of therapy today. LB/MODL Voice ID: [id number] Report ID: [id number]
--- NOTE | 2024-09-08 07:13 | RAD REPORT ---
EXAMINATION: ONE VIEW CHEST XR CLINICAL INDICATION: Male, 59 years old.comparison from 09/04 TECHNIQUE: 1 View, AP supine, X-ray of the chest was performed. [id number]. COMPARISON: 09/04/2024 FINDINGS: Lungs and pleura: Again noted are hazy opacities in the right lung. Question increased retrocardiac o pacities. No definite effusion. Heart and mediastinum: Unchanged size. Unremarkable mediastinal contours. Osseous structures: No acute abnormality. Tubes/lines: Right subclavian approach PICC with tip overlying the SVC. Other: None. IMPRESSION: Modest improvement in aeration of the right lung base though question some worsening in the retrocard iac region of the left lung base. Findings could represent pneumonia or pneumonitis.
[2024-09-08] MEDS: SODIUM CHLORIDE 1 GM TAB PO SCH (17:23)
--- NOTE | 2024-09-09 02:56 | PN ---
Date of Progress Note: 09/08/2024 Time Of Service: 1 p.m. Subjective: Mr. Arzola is resting in bed. He is normocephalic, atraumatic. He has no complaints. His temperature today is not febrile. He is now using incentive spirometry. at bedside said he is not doing well, although the patient himself, who was sitting in a chair beside bed eating, said he is doing better today. Objective: No fevers, chills, nausea, vomiting. No significant myalgias, arthralgias. Leg strength is slowly improving, more distally than proximally. Physical Examination: Vital Signs: Blood pressure 172/84, pulse 92, respiratory rate 16, temperature 99.1, oxygen saturati on 94%. General: Mr. Arzola again is sitting in a chair beside bed. HEENT: He is normocephalic, atraumatic. Sclerae anicteric. Oropharynx moist. Neck: Supple. Chest: Clear. Extremities: Does have good hemostasis of the surgical wound to the back and significant weakness no frank, more proximally than distally in the lower extremities. He is returning sensation in the legs. Laboratory Studies: Blood sugar today range 107 to 124. His repeat urinalysis from 09/07/2024 showe d 3+ blood, 250 esterase, greater than 50 red blood cells, greater than 50 white blood cells, many bu dding yeast, 2+ total protein, extreme turbidity. A chest x-ray done earlier today showed modest imp rovement in aeration of the right lung base, though questioning some worsening retrocardiac region of the lung base. Findings could represent pneumonia or pneumonitis. Again, the patient is encouraged to use incentive spirometry. Note, he is also on daptomycin which is broad-spectrum antibiotic. Medications: Again, daptomycin is continued at 700 mg every 24 hours, 32 bags from 08/28/2024 to be given. He has Lovenox for DVT prophylaxis. He has Glucerna shake for malnutrition, baclofen for mus lindsey spasms, Tessalon Perles for cough, Coreg 3.125 mg twice daily for his blood pressure and heart ra te control, albuterol nebulizer on board, Norvasc 5 mg at bedtime, aspirin and Lipitor also on board, tramadol for pain, Flomax for prostate hypertrophy. His sodium level was slightly low and he has 1 g sodium twice daily. He did receive some normal saline as well. He has Protonix for reflux, simeth icone for gas. Progress Made With Physical And Occupational Therapy: Today with physical therapy, he did mobilize a wheelchair 100 feet twice and 90 feet twice with bilateral upper extremities. He was able to do bed mobility with contact guard assistance, standby assistance needed for [id number] transition. With occupational therapy, made some progress with dynamic sitting balance with trunk control which is im proving. He sat at the edge of the chair unsupported for 10 minutes and had a rest break. Did compl ain some burning sensation in the back while he was doing therapy. Assessment: Mr. Arzola is a 59-year-old patient in the rehabilitation unit with T6-T9 epidural absce ss, status post lumbar laminectomy. He has had low-grade fever potentially related to atelectasis. Chest x-ray suggests potential pneumonitis versus pneumonia. He is on daptomycin for the abscess in the spinal region which has been treated surgically and it is an epidural abscess. Please note that prior notes had subdural, but it is an epidural abscess. He has Flomax for prostate hypertrophy, socrates lofen for muscle spasms, Lovenox for DVT prophylaxis, Lipitor for dyslipidemia, and has nebulizer pita atment on board. Plan: We will continue with physical and occupational therapy and continue his list of medications f or comorbid condition. Encouraged to use incentive spirometry and we will follow his of course temjannette layton and if need be, we will do sputum cultures to determine if there is any change in the need for antibiotics. He has had multiple blood cultures showing no growth and he has a repeat urinalysis wh ich is pending in terms of his cultures. LB/MODL Voice ID: [id number] Report ID: [id number]
--- NOTE | 2024-09-09 14:20 | RAD REPORT ---
EXAMINATION: ONE VIEW CHEST XR CLINICAL INDICATION: picc line placement verificatin TECHNIQUE: Frontal chest projection is submitted. Examination is limited by patient positioning and t echnique. COMPARISON: 09/08/2024 FINDINGS: Right-sided PICC line has tip in SVC. Mild bilateral pulmonary opacities are noted suggesting pulmona ry edema or pneumonia. The heart is upper limit of normal in size. IMPRESSION: Right-sided PICC line is tip in SVC.
[2024-09-09] MEDS: FLUCONAZOLE 100 MG TAB PO SCH ×2 (20:00→21:06)
[2024-09-09] MEDS: ACETAMINOPHEN 325 MG TABLET PO PRN (20:10)
[2024-09-09] MEDS: Mupirocin NASAL 2 APPL/1 GM TUBE NAS SCH (20:10)
[2024-09-09] MEDS: QUETIAPINE 25 MG TAB PO SCH (20:11)
--- NOTE | 2024-09-09 21:52 | PN ---
Date of Progress Note: 09/09/2024 Time Of Service: 1 p.m. Subjective: Mr. Arzola is sitting in a chair beside bed. He says he is feeling well today. His wif cynthia did note he had hallucinations seeing a child at the foot of his bed apparently "time out." He was not afraid or worried or anxious. The possibility of medications such as tramadol or baclofen may b e contributing or considered and tramadol was discontinued. Objective: Mild myalgias, arthralgias in his lower extremities, where he is slowly regaining some se nsation and strength. Otherwise, no new complaints such as no fevers today. No chills. No rash or other issues. Physical Examination: Vital Signs: Blood pressure 149/75, pulse of 79, respiratory rate of 18, temperature 97.2, oxygen sa turation 95%. General: Mr. Arzola again is sitting in a chair beside bed. He is working with the [email or web address] on a sliding board transfer from wheelchair to bed. HEENT: He is normocephalic, atraumatic. Sclerae anicteric. Oropharynx moist. Neck: Supple. Chest: Clear. Extremities: Still he has marked weakness in the lower extremities more proximally than distally and sensation is improving slowly in the lower extremities. Laboratory Studies: Blood sugars ranged from 105 to 135. Note, urinalysis from 2 days ago, turbid c larity, 3+ blood, 250 esterase, greater than 50 red blood cells, greater than 50 white blood cells, m any budding yeast, 2+ total protein, and his cultures did grow greater than 100,000 colony-forming un its of 4+ yeast. The Infectious Disease Service, Dr. Barba, was consulted to help with advise on po ssible changes to his antimicrobial regimen. He is currently on daptomycin for the spinal cord epidu ral abscess and the long-term daptomycin may be a contributing factor to the yeast overgrowth. Medications: His medications have been reviewed. He is continuing the daptomycin 700 mg every 24 ho urs. He has Lovenox for DVT prophylaxis, ferrous sulfate for iron deficiency, Cozaar 50 mg at bedtim e for blood pressure control. He has gabapentin 300 mg twice daily for his neuropathic pain, metform in for diabetes mellitus, Hemocyte Plus added for his anemia. Progress Made With Physical And Occupational Therapy: Today with physical therapy, he mobilized a wh eelchair 500 feet with supervision to modified independence. Completed arm rest and leg rest managem ent and training, was able to manage those activities with 30% hand over hand assistance. Did comple te sliding board transfer with contact guard assistance. He was able to turn in bed and go supine to sit with contact guard assistance. With occupational therapy, standby assistance for [id number] transfer from edge of bed to wheelchair. Again he was noted to have hallucinations earlier and poten tial cause by medication was discussed and tramadol was discontinued. Assessment: Mr. Arzola is a 59-year-old patient in the rehabilitation unit with T6-T9 epidural absce ss, status post laminectomy. He is on long-term antibiotic daptomycin. The urinalysis suggests yeas t infection and he has had some febrile episodes, although low-grade few days ago. The potential for yeast urinary tract infection is considered and Dr. Barba from ID Service consulted to assist with the management. His comorbidities are decreased mobility, decreased physical functioning, prostate h ypertrophy, lower extremity spasms, pneumonitis versus pneumonia, all currently being addressed. Plan: He will continue with physical and occupational therapy 3 hours a day, 5 of 7 days. Continue all medications as noted and he may start Diflucan for fungal infection based on Dr. Barba's recomme ndation. CHANDANA/DEENA Voice ID: [id number] Report ID: [id number]
[2024-09-10 05:27] LABS: Absolute Lymphocytes (CBC) 0.7 K/uL (0.7-4.9); Absolute Monocytes 0.7 K/uL (0.1-1.3); Absolute Neutrophil 5.8 K/uL (1.8-8.0); Basophils % 0.3 % (0-1.3); Eosinophils % 11.6 % (0-4.4); Hematocrit 24.3 % (39.6-49.0); Hemoglobin 8.2 g/dL (13.6-17.9); Lymphocytes % 8.4 % (15.3-44.8); MCH 28.7 pg (27.0-35.0); MCHC 33.9 g/dL (32.0-36.0); MCV 84.7 fL (80-100); MPV 6.9 fL (7.6-11.3); Monocytes % 8.9 % (3.3-12.3); Neutrophils % 70.8 % (41.7-73.7); Platelets 371 thou/uL (152-406); RBC Red Blood Cell Count 2.87 M/uL (4.33-5.43)
[2024-09-10 05:50] LABS: Albumin 1.7 g/dL (3.4-5.0); Anion Gap 8.2 mEq/L (5.0-15.0); Magnesium 2.5 mg/dL (1.6-2.4); Potassium 4.2 mEq/L (3.5-5.1); Prealbumin 7.3 mg/dL (20-40)
[2024-09-10] MEDS: BACLOFEN 10 MG TAB PO SCH (07:58)
[2024-09-10] MEDS: CYANOCOBALAMIN 1000MCG/ML INJ IM SCH (19:54)
[2024-09-10] MEDS: APIXABAN 2.5 MG TABLET PO SCH (19:55)
--- NOTE | 2024-09-10 23:21 | PN ---
Date of Progress Note: 09/10/2024 Time Of Service: 1:10 p.m. Subjective: Mr. Arzola is in a chair beside his bed in between therapy sessions. He is making fair progress he feels overall with his therapy, but still has some confusion at times. Objective: Mild myalgias in the feet and legs. No rash. No psychiatric issues, although the patien t's did say he was seeing things at times and there is a possibility of those contributed by med ications including tramadol. His tramadol was discontinued. He does have gabapentin on board. Also muscle relaxant baclofen may be also considered as a medication contributing to these episodes. Physical Examination: Vital Signs: Blood pressure 144/69, pulse 78, respiratory rate of 16, temperature 97.6, oxygen satur ation 92%. General: Again, Mr. Arzola is resting comfortably. He is in no significant distress. HEENT: He appears normocephalic, atraumatic. Sclerae anicteric. Oropharynx moist. Neck: Supple. Chest: Clear. Extremities: Show no significant clubbing, cyanosis, or edema. He is still unable to hold his feet off the bed while lying in bed. He can dorsiflex and plantar flex his both feet around 2 to 3 streng th proximally, has 0 to 1 with knee elevation and leg extension. Laboratory Studies: White blood cell count 8.2, hemoglobin 8.2 as well, platelets 371. His sodium, potassium, chloride, carbon dioxide, BUN all normal, creatinine 0.95, glucose ranged from 104 to 126, calcium 8.5, magnesium 2.5, albumin 1.7, prealbumin 7.3. His urine culture from the did grow C andida albicans and he is now on Diflucan, which is 150 mg daily for 5 days from 09/09 to 09/14. He is also on the daptomycin 700 mg IV piggyback every 24 hours. Additional Medications: As noted, he is on Tylenol for pain, albuterol nebulizer for shortness of br eath, Norvasc for blood pressure control, Eliquis is now 2.5 mg twice daily, and Lovenox has been dis continued. He is on aspirin 81 mg daily, Lipitor 20 mg at bedtime, baclofen maybe taken back if he h as hallucinations. His tramadol has been discontinued. Cozaar is 50 mg at bedtime, lidocaine patch apply 2 patches to the back daily, melatonin at night, metformin 500 mg twice daily, Hemocyte Plus as well. He has Seroquel for the psychotic features, seeing things, but nothing is present, and he did receive IV fluids. He has a gram of sodium chloride twice daily and sodium is normal. Progress Made With Physical And Occupational Therapy: With physical therapy today, he was able to mo bilize a wheelchair 250 feet and 100 feet with supervision. He still needed short rest breaks. Bed mobility done with minimal assistance. [id number] transfer needing minimal assistance. Sit-to-st and transfer using . Standing today, able to stand on a lift for 2 to 3 minutes. With his occupational therapy, partial assistance for [id number] transfer. He sat supported on the shower chair, completed bathing with partial assistance. Independent with upper body dressing, dependent w ith lower body dressing. Assessment: Mr. Arzola is a 59-year-old patient in the rehabilitation unit with a T6-T9 epidural abs cess as well as decompression. His comorbidities do include decreased mobility, decreased physical f unctioning. He has Thelma urinary tract infection. He is on IV antibiotics and oral antifungal pita atment. He has had some episodes of hallucinations improved. He has diabetes mellitus, constipation , prostate hypertrophy, GE reflux, insomnia, neuropathic pain, anemia, dyslipidemia, and medications are addressing his comorbid conditions. Plan: 1.He will have physical and occupational therapy 3 hours a day, 5 of 7 days. 2.His comorbid conditions which have been listed are managed by continuing his medications including for DVT prophylaxis. Continue the Thelma albicans treatment with Diflucan, the daptomycin for his spinal epidural abscess that has been addressed surgically. He will continue with all therapy and ready for discharge early next week. CHANDANA/DEENA Voice ID: [id number] Report ID: [id number]
--- NOTE | 2024-09-11 13:41 | P.RH.PN ---
Estimated Length of Stay: 20 Expected Discharge Date: 09/14/24 Discharge Disposition Plan: Home Family Support: Yes Skilled Nursing Goal: Mobility, Transfers, Self Care Vital Signs: Last Vital Signs Temp 98.1 F 09/11/24 07:31 Pulse 86 09/11/24 07:31 Resp 16 09/11/24 07:31 BP 158/77 H 09/11/24 07:31 Pulse Ox 93 09/11/24 07:31 Laboratory: Laboratory Last Values WBC 8.20 thou/uL (4.3-10.9) 09/10/24 04:05 RBC 2.87 M/uL (4.33-5.43) L 09/10/24 04:05 Hgb 8.2 g/dL (13.6-17.9) L 09/10/24 04:05 Hct 24.3 % (39.6-49.0) L 09/10/24 04:05 MCV 84.7 fL (80-100) 09/10/24 04:05 MCH 28.7 pg (27.0-35.0) 09/10/24 04:05 MCHC 33.9 g/dL (32.0-36.0) 09/10/24 04:05 RDW 17.0 % (12.1-15.2) H 09/10/24 04:05 Plt Count 371 thou/uL (152-406) 09/10/24 04:05 MPV 6.9 fL (7.6-11.3) L 09/10/24 04:05 Neutrophils % 70.8 % (41.7-73.7) 09/10/24 04:05 Lymphocytes % 8.4 % (15.3-44.8) L 09/10/24 04:05 Monocytes % 8.9 % (3.3-12.3) 09/10/24 04:05 Eosinophils % 11.6 % (0-4.4) H 09/10/24 04:05 Basophils % 0.3 % (0-1.3) 09/10/24 04:05 Absolute Neutrophils 5.8 K/uL (1.8-8.0) 09/10/24 04:05 Absolute Lymphocytes 0.7 K/uL (0.7-4.9) 09/10/24 04:05 Absolute Monocytes 0.7 K/uL (0.1-1.3) 09/10/24 04:05 Absolute Eosinophils 1.0 K/uL (0-0.5) H 09/10/24 04:05 Absolute Basophils 0.0 K/uL (0-0.5) 09/10/24 04:05 pH 7.42 (7.35-7.45) 09/01/24 16:24 pCO2 41.3 mmHG (35-45) 09/01/24 16:24 pO2 48.9 mmHG (75-100) L 09/01/24 16:24 HCO3 26.4 mmol/L (22-28) 09/01/24 16:24 Base Excess 2.3 mmol/L 09/01/24 16:24 Oxyhemoglobin 83.2 % (94-97) L 09/01/24 16:24 ABG O2 Sat (Measured) 85.6 % (92-98.5) L 09/01/24 16:24 ABG Carboxyhemoglobin 1.1 % (0-1.5) 09/01/24 16:24 ABG Methemoglobin 1.7 % (0-1.5) H 09/01/24 16:24 Other Total Hgb 11.3 g/dl (12-18) L 09/01/24 16:24 Inspired O2 21.0 % 09/01/24 16:24 Sodium 136 mEq/L (136-145) 09/10/24 04:05 Potassium 4.2 mEq/L (3.5-5.1) 09/10/24 04:05 Chloride 104 mEq/L (98-107) 09/10/24 04:05 Carbon Dioxide 28 mEq/L (21-32) 09/10/24 04:05 Anion Gap 8.2 mEq/L (5.0-15.0) 09/10/24 04:05 BUN 18 mg/dL (7-18) 09/10/24 04:05 Creatinine 0.95 mg/dL (0.70-1.30) 09/10/24 04:05 Est GFR (CKD-EPI) 93 ml/min (=/>90) 09/10/24 04:05 Glucose 100 mg/dL (74-106) 09/10/24 04:05 POC Glucose 152 mg/dL (65-120) H 09/11/24 11:38 Hemoglobin A1c 6.3 % (4.2-6.3) 08/28/24 05:15 Lactic Acid 0.9 mmol/L (0.4-2.0) 09/07/24 16:15 Calcium 8.5 mg/dL (8.5-10.1) 09/10/24 04:05 Magnesium 2.5 mg/dL (1.6-2.4) H 09/10/24 04:05 Lactate Dehydrogenase 314 U/L (87-241) H 09/04/24 13:35 Albumin 1.7 g/dL (3.4-5.0) L 09/10/24 04:05 Prealbumin 7.3 mg/dL (20-40) L 09/10/24 04:05 Procalcitonin 0.19 ng/mL (<0.050) H 09/07/24 16:15 Urine Color Yellow (Yellow) 09/07/24 16:30 Urine Clarity Extremely turbid (Clear) H 09/07/24 16:30 Urine pH 6.0 (5.0-7.0) 09/07/24 16:30 Ur Specific [place] 1.016 (1.005-1.030) 09/07/24 16:30 Glucose (UA)(Auto) Negative (Negative) 09/07/24 16:30 Urine Ketones Negative (Negative) 09/07/24 16:30 Urine Blood 3+ (Negative) H 09/07/24 16:30 Urine Nitrite Negative (Negative) 09/07/24 16:30 Urine Bilirubin Negative (Negative) 09/07/24 16:30 Urine Urobilinogen Normal (Normal) 09/07/24 16:30 Ur Leukocyte Esterase 250 Chirag/uL (Negative) H 09/07/24 16:30 Urine RBC >50 /HPF (None Seen) H 09/07/24 16:30 Urine WBC >50 /HPF (<5) H 09/07/24 16:30 Urine WBC Clumps Rare /HPF (None Seen) 09/07/24 16:30 Ur Squamous Epith Cells <5 /HPF (None Seen) 09/07/24 16:30 U Non-Squamous Epi Cells <5 /HPF (None Seen) 08/27/24 21:35 Ur Renal Epithelial Cell <5 /HPF (None Seen) 08/27/24 21:35 Unidentified Crystals Few /HPF (None Seen) 09/07/24 16:30 Urine Bacteria <20 /HPF (<20) 09/07/24 16:30 Urine Mucus Slight /HPF (None Seen) 09/07/24 16:30 Ur Yeast w Hyphae Trace /HPF (None Seen) H 08/27/24 21:35 Urine Yeast (Budding) Many /HPF (None Seen) H 09/07/24 16:30 Urine Culture Reflexed Reflexed 09/07/24 16:30 Urine Total Protein 2+ (Negative) H 09/07/24 16:30 ABO/Rh A POSITIVE 09/03/24 16:06 Solid Phase Ab Screen Negative 09/03/24 16:06 Crossmatch See Detail 09/03/24 16:06 Weight: 184 lb Wound Present: No Closed Surgical Incision Present: Yes Negative Pressure Wound Therapy Present: No Physician Update: His prealbumin has dropped to 7 with a very poor appetite. His surgical site in the back looks good. He is on diflucan for yeast UTI while taking Daptomycin. Will do a CT of the thoracic region. Min assist bed mobility, CGA and min assist wit sliding board. He is particpating fairly well. WC, 250' x 2. He appears depressed about his situation. Not met any OT group home goals. Poor truncal control while sitting. 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 Please see the Rehabilitation Signature page for all necessary signatures.
--- NOTE | 2024-09-11 15:37 | RAD REPORT ---
EXAM: CT THORACIC SPINE WITHOUT CONTRAST HISTORY: fever, R/O infection COMPARISON: None TECHNIQUE: Multiple contiguous axial images were obtained in a CT of the thoracic spine without contr ast. Sagittal and coronal reformats were performed. One or more of the following dose reduction techniques were used: Automated exposure control, adjustment of the mA and kV according to patient si ze, and iterative reconstruction. Unless otherwise specified, incidental findings do not require dedicated imaging follow-up. FINDINGS: The vertebral bodies and intervertebral discs demonstrate normal height and alignment witho ut fracture or subluxation. . Large laminectomy postsurgical changes are present mid thoracic spine. . The prevertebral and paraspinal soft tissues are unremarkable. Bilateral pleural effusions with ext ensive bilateral pulmonary opacities are seen. IMPRESSION: Postsurgical thoracic spine is noted. Soft tissue assessment in the surgical region is not well asses sed. Contrast-enhanced MRI could provide better soft tissue detail. Extensive bilateral pulmonary opacities are present with pleural effusions which could indicate pneum onia.
[2024-09-11] MEDS: ALBUMIN HUMAN 25% 100 ML IV ONE (15:50)
[2024-09-11 16:08] LABS: ALT/SGPT 77 U/L (16-61); AST/SGOT 61 U/L (15-37); Albumin 1.8 g/dL (3.4-5.0); Albumin/Globulin Ratio 0.3 (1.1-1.8); Alkaline Phosphatase 188 U/L (45-117); Bilirubin Total 0.3 mg/dL (0.2-1.0); Globulin 5.5 g/dL (2.3-3.5); Protein, Total 7.3 g/dL (6.4-8.2)
[2024-09-11 16:09] LABS: Anion Gap 10.5 mEq/L (5.0-15.0); Potassium 4.5 mEq/L (3.5-5.1)
--- NOTE | 2024-09-11 16:09 | CON ---
History Of Present Illness: This is a 59-year-old male, I was consulted for urinary tract infection secondary to funguria. The patient has been given started on Diflucan. Start date is 09/09 to be co ntinued for 7 days. The patient denies any burning sensation as he has decreased sensation below his waist after the abscess surgery to his back. He is starting to get some tingling sensation in his f eet. Denies any nausea, vomiting, chest pain, abdominal pain, constipation, diarrhea. Currently on daptomycin for his back infection to the spinal area and abscess. Past medical history of diabetes m ellitus, hypercholesterolemia, hypertension, coronary artery disease. [facility], will be transferring to long-term facility for IV antibiotic in [place]. Past Medical History: As per HPI. Social History: Tobacco positive. Alcohol negative. Family History: Noncontributory. Medication: Daptomycin, fluconazole, see MAR for other medications. Allergies: NO KNOWN DRUG ALLERGIES. Review of Systems: A 10-point review was performed. Physical Examination: General: This is a 59-year-old male, sitting in wheelchair, not in any acute cardiopulmonary distres s. Vital Signs: Temperature 98, pulse 86, respirations 16, blood pressure 158/77. HEENT: Unremarkable. Neck: Supple. Lungs: Basal crackles. Heart: S1, S2. Regular. Abdomen: Soft, nontender. Bowel sounds present. Extremity: No edema. Laboratory Data: Shows WBC 8.2, hemoglobin 8.2, platelets are 371. Chemistry shows BUN of 18, creat inine 0.9, albumin level of 1.7. Urine cultures are growing Thelma albicans. Blood cultures are ne gative to date. 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 Currently, being treated with IV daptomycin, which was started on 08/25 for 42 days. Th e patient to complete his therapy at long-term facility. Funguria, currently on Diflucan 150 mg yolanda y with recommend to continue for total of 7 days. Diabetes mellitus, anemia of chronic disease, mode rate protein-calorie malnourishment. Recommend to check CK level as patient is on daptomycin and BMP twice a week while the patient is on antibiotic, daptomycin. Continue supportive care and monitor s igns of infection with WBC and fever trend. Thank you Dr. Watts for consult. NF/MODL Voice ID: [id number] Report ID: [id number]
[2024-09-11 16:10] LABS: Bilirubin Direct < 0.2 mg/dL (0-0.2); Bilirubin Indirect, Calculated 0.1 mg/dL (0.2-0.8)
[2024-09-11] MEDS: CEFEPIME 1 GM in NA CHLORIDE 0.9% 100 ML IV SCH (19:15)
--- NOTE | 2024-09-13 11:43 | P.CNS ---
Date of Consult: 09/13/24 Reason for Consult: Painful toenails Allergies No Known Allergies Allergy (Verified 08/12/24 09:44) Home Medications: Amlodipine [Norvasc] 5 mg PO DAILY 08/12/24 Atorvastatin Calcium [Lipitor] 20 mg PO BEDTIME 08/12/24 Carvedilol [Coreg] 6.25 mg PO BIDAC 08/12/24 Losartan Potassium [Cozaar] 100 mg PO DAILY 08/12/24 Metformin HCl [Glucophage] 500 mg PO BIDAC 08/12/24 Pantoprazole [Protonix Tab*] 1 tab PO DAILY 08/12/24 Aspirin Chewable [Aspirin Chewable*] 81 mg PO DAILY 08/27/24 Enoxaparin Sodium [Lovenox 40 MG INJ] 40 mg SQ DAILY 08/27/24 Hydrocodone 5/APAP 325 [[place] 5/325] 1 tab PO Q4H PRN 08/27/24 Tamsulosin [Flomax] 0.4 mg PO BEDTIME 08/27/24 Tizanidine HCl [Zanaflex] 2 mg PO Q6H PRN 08/27/24 - Past Medical/Surgical History Diabetic: Yes -: cad -: htn -: hld -: dm -: former smoker -: maximus -: nstemi -: hf- ef 65% -: mitral/aortic valve thickening -: psoriasis -: s/p laminectomy 08/17/24 - Family History Father Medical History: Heart disease Mother Medical History: Diabetes Brother Medical History: Diabetes Sister Medical History: Diabetes, Cancer - Social History Smoking Status: Former smoker Alcohol use: No CD- Drugs: No Caffeine use: Yes Place of Residence: Home Review of Systems 10-point ROS is otherwise unremarkable Physical Examination Temp Pulse Resp BP Pulse Ox 99.2 F 85 18 142/73 H 92 09/13/24 08:00 09/13/24 08:38 09/13/24 08:00 09/13/24 08:38 09/13/24 08:00 General: Alert, In no apparent distress, Oriented x3 Cardiovascular: No edema, Abnormal pulses (0/4 dp and pt pulses bilateral lower extremity) Capillary refill: >2 Seconds Musculoskeletal: No clubbing, No swelling, No contractures, No erythema, No tenderness, No warmth Integumentary: No rashes, No breakdown, No significant lesion, No tenderness/swelling, No erythema, No warmth, No cyanosis, Other (Absent hair growth bilateral feet. Thickened hypertrophic nails with subungual debris x 10) Neurological: Abnormal sensation - Problems (1) Generalized atherosclerosis without gangrene Current Visit: Yes Status: Acute (2) Tinea unguium Current Visit: Yes Status: Acute Conclusions/Impression: Mechanical debridement of toenails at bedside x 10 Physician Review: Patient Assessed, Agree with Above Assessment and Plan
[2024-09-13] MEDS ORDERED: NA CHLORIDE 0.9% 1,000 ML ONE (20:11)
[2024-09-14 06:32] VITALS: TEMP 98.3
[2024-09-14 09:39] LABS: Absolute Eosinophils 1.1 K/uL (0-0.5); Absolute Lymphocytes (CBC) 0.5 K/uL (0.7-4.9); Absolute Monocytes 0.6 K/uL (0.1-1.3); Absolute Neutrophil 6.9 K/uL (1.8-8.0); Basophils % 0.2 % (0-1.3); Eosinophils % 12.5 % (0-4.4); Hematocrit 23.2 % (39.6-49.0); Hemoglobin 7.8 g/dL (13.6-17.9); Lymphocytes % 5.2 % (15.3-44.8); MCH 28.6 pg (27.0-35.0); MCHC 33.6 g/dL (32.0-36.0); MPV 6.6 fL (7.6-11.3); Monocytes % 6.2 % (3.3-12.3); Neutrophils % 75.9 % (41.7-73.7); Platelets 329 thou/uL (152-406); RBC Red Blood Cell Count 2.73 M/uL (4.33-5.43); Red Cell Distribution Width 17.1 % (12.1-15.2)
[2024-09-14 09:49] LABS: Anion Gap 7.5 mEq/L (5.0-15.0); Potassium 4.5 mEq/L (3.5-5.1)
[2024-09-14 16:29] VITALS: BP 156/70
== END 2024-09-14 17:10 | DRG 560 ==
LOC: 5TH 20:02
PROVIDERS: ADMIT Psychiatry & Neurology Neurology with Special Qualifications in Child Neurology; ATTEND Psychiatry & Neurology Neurology with Special Qualifications in Child Neurology
PROC: 30233N1 Transfusion of Nonautologous Red Blood Cells into Peripheral Vein, Percutaneous Approach (ICD-10-PCS; 2024-09-04)
PROC: 02HV33Z Insertion of Infusion Device into Superior Vena Cava, Percutaneous Approach (ICD-10-PCS; 2024-09-09)
PROC: 3E04329 Introduction of Other Anti-infective into Central Vein, Percutaneous Approach (ICD-10-PCS; 2024-09-09)
PROC: 0HBRXZZ Excision of Toe Nail, External Approach (ICD-10-PCS; principal; 2024-09-13)
PROC: 0HBRXZZ Excision of Toe Nail, External Approach (ICD-10-PCS; 2024-09-13)
PROC: 0HBRXZZ Excision of Toe Nail, External Approach (ICD-10-PCS; 2024-09-13)
PROC: 0HBRXZZ Excision of Toe Nail, External Approach (ICD-10-PCS; 2024-09-13)
PROC: 0HBRXZZ Excision of Toe Nail, External Approach (ICD-10-PCS; 2024-09-13)
PROC: 0HBRXZZ Excision of Toe Nail, External Approach (ICD-10-PCS; 2024-09-13)
PROC: 0HBRXZZ Excision of Toe Nail, External Approach (ICD-10-PCS; 2024-09-13)
PROC: 0HBRXZZ Excision of Toe Nail, External Approach (ICD-10-PCS; 2024-09-13)
PROC: 0HBRXZZ Excision of Toe Nail, External Approach (ICD-10-PCS; 2024-09-13)
PROC: 0HBRXZZ Excision of Toe Nail, External Approach (ICD-10-PCS; 2024-09-13)
DX: Z47.89 Encounter for other orthopedic aftercare (principal); B37.49 Other urogenital candidiasis; E46 Unspecified protein-calorie malnutrition; I25.10 Atherosclerotic heart disease of native coronary artery without angina pectoris; E11.9 Type 2 diabetes mellitus without complications; E78.5 Hyperlipidemia, unspecified; I10 Essential (primary) hypertension; R33.9 Retention of urine, unspecified; R15.9 Full incontinence of feces; B35.1 Tinea unguium; N40.0 Benign prostatic hyperplasia without lower urinary tract symptoms; L40.9 Psoriasis, unspecified; M62.838 Other muscle spasm; K59.00 Constipation, unspecified; K21.9 Gastro-esophageal reflux disease without esophagitis; G47.00 Insomnia, unspecified; E78.00 Pure hypercholesterolemia, unspecified; D63.8 Anemia in other chronic diseases classified elsewhere; I70.91 Generalized atherosclerosis; G47.30 Sleep apnea, unspecified; Z68.28 Body mass index [BMI] 28.0-28.9, adult; Z87.891 Personal history of nicotine dependence
CPT/HCPCS: 36415; 36569; 36600; 71045; 72128; 74018; 80048; 80076; 81001; 81003; 82040; 82085; 82550; 82805; 82947; 83036; 83605; 83615; 83735; 84134; 84145; 84156; 85014; 85018; 85025; 86850; 86900; 86901; 86920; 87040; 87070; 87086; 87088; 87205; 94010; 97110; 97112; 97116; 97161; 97165; 97530; 97542; A4216; J0692; J0878; J1650; J2003; J2997; J3420; J7030; J7050; P9016; P9047; Q0162